=== PATIENT | male | born 1955 | race Caucasian/White ===

== ENCOUNTER 2023-04-21 13:22 | Inpatient (IN) | payer MEDICARE, SELFPAY ==
[2023-04-21] VITALS (51 sets, daily range): BP systolic 52–166; BP diastolic 44–123; PULSE 40; BMI 23.3; BMI 23.7
[2023-04-21] MEDS: AMIDATE 20 MG IV (10:51)
[2023-04-21] MEDS: [UNRECOGNIZED DRUG - OTHER] 100 MG IV ×2 (10:51→10:57)
[2023-04-21] MEDS: SUBLIMAZE 75 MCG IV (10:58)
[2023-04-21 11:02] LABS: % Basophils 0.4 % (0-2); % Eosinophils 0.1 % (0-6); % Lymphocytes 3.4 % (20.5-51.1); % Monocytes 5.7 % (1.7-9.3); % Neutrophils 87.4 % (42.2-75.2); Absolute Basophils 0.1 10^3/uL (0-0.2); Absolute Immature Granulocytes 0.7 10^3/uL (0-0.05); Absolute Lymphocytes 0.9 10^3/uL (1.2-3.4); Absolute Monocytes 1.4 10^3/uL (0.1-0.6); Absolute Neutrophils 21.7 10^3/uL (1.4-6.5); Hematocrit 41.1 % (39.0-52.0); Hemoglobin 14.5 g/dL (13.0-18.0); Mean Corp Hgb Conc. 35.3 g/dL (33.0-37.0); Mean Corpuscular Hgb 31.7 pg (27.0-31.0); Mean Corpuscular Volume 89.9 fL (80.0-94.0); Mean Platelet Volume 11.9 fL (7.4-10.4); Nucleated Red Blood Cells % 0.9 % (-); Platelet Count 226 10^3/uL (130-400); Red Blood Cell Count 4.57 10^6/uL (4.70-6.10); Red Cell Dist. Width 13.9 % (11.5-14.5); White Blood Cell Count 24.8 10^3/uL (4.8-10.8)
--- NOTE | 2023-04-21 11:05 | ED.GENMED ---
Addendum entered and electronically signed by Mahamed Strong DO 04/22/23 08:19:
correction
patient did not come in with good
Original Note:
History of Present Illness
General
Chief Complaint: CODE
Source: patient and ambulance crew
Exam Limitations: clinical condition
Time Seen by Provider: 04/21/23 11:02
Nursing documentation reviewed up to this point in time: agreed with
History of Present Illness
History of Present Illness:
68 female prior stroke EMS was called for choking spell was frothing of some bloody material, went into respiratory arrest asystole/PEA given 1 epi intubated brought to the ER here he is gagging expelled the ET tube, reintubated, by myself he has a
Good with cloudy urine had a prior stroke looks plegic on the left
More history from spouse he had a prior stroke has been sick for a few days with an urgent care with signs sinus infection given antibiotic the does not know the name of saw PCP recently started on Biaxin which typically works for her he listen
to hockey game last night which is not uncommon for him today she found him coughing and expectorating up blood placed on the side 911 was called
Past History
Past History
ED Past Medical History: CVA and HTN
ED Past Surgical History: Other
Social History
Tobacco: Non-smoker
Alcohol: Occasional
Drug: None
Personal:
Living: with family
Employment: Other
Family History
Family History: Other
Review of Systems
Review of Systems
Unable to obtain full review of systems at this time due to: intubated
Other source history: ambulance crew
All Other Systems: Not applicable
Phy Exam
Physical Exam
Physical Exam:
Physical Exam
General: 68 male intubated expectorating vomitus with blood through the nose and oropharynx
Neck: Thick bloody secretions
Heart: s1/s2 regular rate and rhythm, no murmur. equal radial pulses.
Lungs: Breath sounds with positive pressure
Abdomen: Nontender
Neuro: Overbreathing ventilator left-sided please
Skin: no rash
Psychiatric: Unable to assess
Extremities: No edema
Course
Orders/Labs/Results
Orders:
Orders
04/21/23 10:41
Electrocardiogram (*1) Urgent
Reason for Study: Other
Other Reason for Exam: Respiratory Distress
Cardiac Monitoring- Treatment ONCE
EKG- Treatment ONCE
04/21/23 10:42
CR Chest Portable - 1 View Urgent
Comment:
Reason For Exam: respiratory distress
Reason Study Needs to be Portable: Patient Unstable
04/21/23 10:45
Etomidate [Amidate] 20 mg IV ONCE ONE
04/21/23 10:46
Succinylcholine Chloride [Succinylcholine] 100 mg IV ONCE
04/21/23 10:49
Complete Blood Count/With Diff Urgent
Comprehensive Metabolic Panel Urgent
Lactic Acid Q4H
Comment: WITH 1ST SET OF BLOOD CULTURES,CANCEL 2ND LACTIC ACID IF FIRST <2
NT-proBNP Urgent
Prothrombin Time Urgent
Troponin I Urgent
Blood Culture Q30M
JOSHUA Source: Blood/Venous
Specimen Description:
Comment: FROM SEPARATE SITES
04/21/23 10:50
Succinylcholine Chloride [Succinylcholine] 100 mg IV ONCE
04/21/23 10:52
Urinalysis Reflex To Culture Urgent
Date Specimen was Collected: 04/21/23
Time Specimen was Collected: 10:51
Urine Drug Abuse Screen Urgent
Date Specimen was Collected: 04/21/23
Time Specimen was Collected: 10:51
Urine Microscopic Reflex Cult Urgent
Blood Culture Q30M
JOSHUA Source: Blood/Venous
Specimen Description:
Comment: FROM SEPARATE SITES
Urine Culture Urgent
JOSHUA Source: U
Specimen Description:
Date Specimen was Collected: 04/21/23
Time Specimen was Collected: 10:51
04/21/23 10:55
Fentanyl Citrate/Pf [Sublimaze] 75 mcg IV ONCE ONE
04/21/23 11:02
CT Head W/o Iv Contrast Urgent
Comment:
Reason For Exam: coma
04/21/23 11:14
Good Placement- Treatment ONCE
Reason for insertion: I&O's Critical Care
Piperacillin/Tazo 3.375 Gram [Zosyn] 3.375 gram in 50 ml IV NOW
Piperacillin/Tazo 3.375 Gram [Zosyn] 3.375 gram in 50 ml IV NOW
04/21/23 11:18
ABG [Arterial Blood Gas] Urgent
%Oxygen/Room Air: 100
COVID-19 Antigen Urgent
Source: Nasal Swab
Influenza A+B Rapid Molecular Urgent
JOSHUA Source: Nasal Swab
Specimen Description:
04/21/23 11:21
0.9% Sodium Chloride 1000 ml [Nss] 2,000 ml IV BOLUS
NORepinephrine 4 MG/250 ML [Levophed] 4 mg in 250 ml IV NOW
Initial dose in mcg/min, then titrate:: 2
Titrate to keep:: SBP > 90 mmHg
Titrate by mcg/min:: 1-2 mcg/min
Frequency of titrations (minutes):: 5
Maximum dose in ICU in mcg/min:: 30
Maximum dose in IMU in mcg/min:: 8
Maximum dose in IVU in mcg/min:: 4
Begin to taper infusion when:: Remained at goal for 4hrs
Taper by mcg/min:: 1-2 mcg/min
Frequency of taper (minutes) if patient maintains goal:: 30
Taper to off?: Yes
If infusion off & no longer maintaining goal:: Contact Provider
04/21/23 11:[address] Non Medication Order As Directed
Physician Order: NGT
Above order entered?: Yes
04/21/23 11:28
Atropine Sulfate [Atropine 0.1 mg/ml Syringe] 1 mg IV NOW STA
04/21/23 12:00
Fentanyl Citrate/Pf [Sublimaze] 50 mcg IV [id number] PRN
Propofol 1,000,000 Mcg/100 ml [Diprivan] 1,000,000 mcg in 100 ml IV PER PROTOCOL
04/21/23 14:45
Lactic Acid Q4H
Comment: WITH 1ST SET OF BLOOD CULTURES,CANCEL 2ND LACTIC ACID IF FIRST <2
Abnormal Lab Results
04/21/23 04/21/23
10:49 10:52
WBC 24.8 H 10^3/uL
(4.8-10.8)
RBC 4.57 L 10^6/uL
(4.70-6.10)
MCH 31.7 H pg
(27.0-31.0)
MPV 11.9 H fL
(7.4-10.4)
Abs Immat Gran (auto) 0.7 H 10^3/uL
(0-0.05)
Absolute Neuts (auto) 21.7 H 10^3/uL
(1.4-6.5)
Absolute Lymphs (auto) 0.9 L 10^3/uL
(1.2-3.4)
Absolute Monos (auto) 1.4 H 10^3/uL
(0.1-0.6)
Immature Gran % 3.0 H %
(0-0.5)
Neutrophils % 87.4 H %
(42.2-75.2)
Lymphocytes % 3.4 L %
(20.5-51.1)
Sodium 123 L mmol/L
(135-145)
Chloride 90 L mmol/L
(98-107)
BUN 26 H mg/dl
(9-20)
Lactic Acid 2.4 H mmol/L
(0.7-2.0)
AST 99 H U/L
(17-59)
ALT 67 H U/L
(0-50)
Alkaline Phosphatase 188 H U/L
(38-126)
Ur Occult Blood Reflex Trace A
(Negative)
Urine Nitrite (Reflex) Positive A
(Negative)
Leukocyte Esterase Rfl 2+ A
(Negative)
Urine Albumin (Reflex) 1+ A
(Neg - Trace)
04/21/23 10:49
04/21/23 10:49
Vital Signs
Initial and Last Documented VS:
Initial Vital Signs
Pulse Resp BP Pulse Ox
78 20 163/117 93
04/21/23 10:40 04/21/23 10:40 04/21/23 10:40 04/21/23 10:40
Last Documented Vital Signs
Pulse Resp BP Pulse Ox
75 20 114/85 100
04/21/23 11:27 04/21/23 11:27 04/21/23 11:27 04/21/23 11:27
Procedures
Intubations
Procedure completed by: hector
Method of Intubation: glidescope
Tube size (cm): 7.5
Placement confirmed by: CXR
Breath sounds after intubation: equal
Intubation complications: no complications
Additional information:
Large secretions
MDM/Problems Addressed
Differential Diagnosis Includes:
Aspiration choking respiratory arrest cardiac event hypoxia intracerebral hemorrhage
MDM/Problems Addressed:
Respiratory arrest
Chronic conditions affecting care:
Stroke
Chronic conditions affecting care: Neurological disorder
Acute Exacerbation and/or Progression of Chronic Illness: Neurological disorder
*Radiology
Radiology exam reviewed: preliminary read by ED provider
*Pulse Oximetry
Patient hypoxic: yes
*EKG
Interpretation: abnormal
Comparison EKG: no comparison EKG present
Heart Rate: 78
*Critical Care Note
Total Time (30-74mins, 75-104mins- exclusive of procedures): 41
Update Note
Update Note:
10:30 AM heart rate in the 40s blood pressure in the 60s started on Levophed given atropine ET tube adjusted NG tube will be placed based upon text discussion with radiology fluid sepsis doses will be administered antibiotics have been administered
ED Attending Note
-
Portions of this chart may have been created with voice recognition software.� Occasional wrong word or��sound alike� substitutions may have occurred due to the inherent limitations of voice recognition software.
Discharge Plan
Departure
Patient Disposition: Admit
Date of Disposition: 04/21/23
Time of Disposition: 11:36
Admit to: ICU
Presentation/result/management discussed w/ accepting MD/DO: Hospitalist
Patient with high blood pressure during this ER visit?: No
Condition: Serious
Covid-19: Not Applicable
Discharge Problem:
Sepsis, Respiratory failure, Acute UTI, CVA, old, hemiparesis
Prescriptions:
No Action
amlodipine [Norvasc] 5 MG tablet
5 mg PO DAILY
clopidogrel 75 MG tablet
75 mg PO DAILY 18 Days Qty: 18 0RF
aspirin 81 MG tablet,chewable
81 mg PO DAILY 30 Days Qty: 30 0RF
clarithromycin 500 mg Tablet
500 mg PO BID
Patient Comments:
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
oxybutynin chloride 5 mg Tablet
5 mg PO BID
baclofen 5 mg Tablet
5 mg PO BID
losartan 50 mg tablet
100 mg PO DAILY
Referrals:
UNKNOWN - PT NOT,INTERVIEWE [Family Provider] -
Interventions
Interventions:
*Risk Screen - Suicide Last Done: 04/21/23 10:40
*General Assessment Last Done: 04/21/23 10:40
*Neglect/Abuse Screening Last Done: 04/21/23 10:40
ED- Fall Risk Assessment Last Done: 04/21/23 10:40
*ED COVID-19 Vaccine History Last Done: 04/21/23 10:40
ED- Cardiac Assessment Last Done: 04/21/23 10:40
ED- Pulmonary Assessment Last Done: 04/21/23 10:40
[2023-04-21 11:06] LABS: Urine Albumin 1+ (Neg - Trace); Urine Bilirubin Negative (Negative); Urine Character Very Cloudy (Clear); Urine Color Yellow; Urine Glucose Negative (Negative); Urine Ketone Negative (Negative); Urine Leukocyte 2+ (Negative); Urine Nitrite Positive (Negative); Urine Occult Blood Trace (Negative); Urine Specific Gravity 1.025 (<1.030); Urine Urobilinogen Negative (Neg - 1+)
[2023-04-21 11:12] LABS: INR 0.91; PT 12.4 Sec (11.4-14.6)
[2023-04-21 11:14] LABS: Lactic Acid 2.4 mmol/L (0.7-2.0)
[2023-04-21 11:15] LABS: ALT (SGPT) 67 U/L (0-50); AST (SGOT) 99 U/L (17-59); Albumin 4.2 g/dl (3.5-5.0); Alkaline Phosphatase 188 U/L (38-126); Blood Urea Nitrogen 26 mg/dl (9-20); Calcium 9.4 mg/dl (8.4-10.2); Carbon Dioxide 24 mmol/L (22-30); Chloride 90 mmol/L (98-107); Estimated Creatinine Clearance 76 ml/min; Glucose 89 mg/dl (70-99); Sodium 123 mmol/L (135-145); Total Bilirubin 1.1 mg/dl (0.2-1.3); Total Protein 7.6 g/dl (6.3-8.2); eGFR > 60.00
[2023-04-21] MEDS: ZOSYN 50 IV ×2 (11:22→18:07)
[2023-04-21] MEDS: LEVOPHED 250 IV (11:22)
[2023-04-21] MEDS: NSS 2000 IV (11:23)
[2023-04-21 11:25] LABS: NT-proBNP 376 pg/ml; Troponin I < 0.012 ng/ml
[2023-04-21] MEDS: ATROPINE 0.1 MG/ML SYRINGE 1 MG IV (11:28)
[2023-04-21] MEDS: SUBLIMAZE 50 MCG IV ×2 (11:36→23:23)
[2023-04-21 11:55] LABS: Amphetamines Negative (Negative); Barbiturates Negative (Negative); Benzodiazepines Negative (Negative); Buprenorphine Negative (Negative); Cocaine Negative (Negative); Methadone Negative (Negative); Methamphetamines Negative (Negative)
[2023-04-21 11:55] LABS: COVID-19 Antigen Negative (Negative)
[2023-04-21 11:56] LABS: Marijuana Negative (Negative); Opiates Negative (Negative); Phencyclidine Negative (Negative); Tricyclic Antidepressants Negative (Negative)
[2023-04-21 11:58] LABS: B.E. -3.7 mmol/L; HCO3 20.6 mmol/L (21-28); O2 Saturation % 99.8 % (94-98); PCO2 34 mmHg (35-48); PO2 159 mmHg (83-108); pH 7.39 (7.35-7.45)
[2023-04-21 12:20] LABS: Urine Amorphous Seen
[2023-04-21 12:22] LABS: Urine Red Blood Cell 0-2 /HPF (0-2); Urine White Cell 21-25 /HPF (0-5)
[2023-04-21 12:24] LABS: Urine Bacteria Moderate (Negative); Urine Hyaline Cast 0-2 /LPF (0-2)
--- NOTE | 2023-04-21 13:30 | HPS.HSE ---
Family Physician
-
Family Physician: INTERVIEWE UNKNOWN - PT NOT
Chief Complaint
-
Gagging on bloody oral secretions
History of Present Illness
Patient currently intubated and sedated. History is per who is at bedside in the ER.
Since new year long weekend patient has been having trouble with sinus infection. Went to urgent care center on April 12 and had COVID testing which was negative and also a chest x-ray which did not show pneumonia apparently. Was prescribed
antibiotics to be taken twice a day. He did tell Tuesday and stopped it. There was a telehealth by PCP on April 19 and was prescribed catheter mycins. noticed he is may be getting better. He had some confusion that was clearing up.
Last night he was watching flies came which was) and that he had good appetite.
This morning at 9:30 AM when the patient's went to check on him for breakfast awake and was looking at her with a squinted eyes. He was gagging and coughing up blood so she laid him on his side and called 911.
According to the ER physician apparently the EMS found him in respiratory arrest, asystole/PEA code and was given 1 round of epinephrine and got intubated. Apparently difficult intubation as he was gagging on the ET tube and got reintubated by ER
physician. He got a cloudy urine when a catheter was placed.
He had a stroke in 2021 and ever since has been weaker on the left side with some improvement. His left upper extremity went into contracture. No history of seizures.
Medical History
Past Medical History
Past Medical History: Reports CVA, HTN, Hypercholesterolemia and Other (lung nodule)
Past Surgical History: Reports None
Social History
Tobacco: Non-smoker
Alcohol: Occasional
Drug: None
Personal:
Living: With Family
Family History
Family History: Not pertinent
Allergies / Home Medications
Allergies reflects when Allergies were last updated in [employer].
Home Medications with original date entered in [employer]
Allergy/Medication List:
Allergies
Allergy/AdvReac Type Severity Reaction Status Date / Time
No Known Allergies Allergy Verified 04/21/23 10:41
Home Medications
amlodipine 5 mg tablet (Norvasc) 5 mg PO DAILY Blood pressure 09/04/21
aspirin 81 mg chewable tablet 81 mg PO DAILY 30 days #30 tabs 09/06/21
clopidogrel 75 mg tablet 75 mg PO DAILY 18 days #18 tabs 09/06/21
baclofen 5 mg tablet 5 mg PO BID 04/21/23
clarithromycin 500 mg tablet 500 mg PO BID 04/21/23
losartan 50 mg tablet 100 mg PO DAILY 04/21/23
oxybutynin chloride 5 mg tablet 5 mg PO BID 04/21/23
Review of Systems
-
Unable to obtain full review of systems at this time due to: Patient Intubation
Physical Exam
Vital Signs
Vital Signs
Temp Pulse Resp BP Pulse Ox
92.8 F L 58 20 146/87 100
04/21/23 13:13 04/21/23 13:00 04/21/23 13:00 04/21/23 13:00 04/21/23 13:00
Physical Exam
General: No Apparent Distress
HEENT: Other (bloody BL nasal secretions ;Left nare with NG tube; Oral trach tube with bleeding in mouth ; left ventral lateral part of tongue with few superficial lacerations ? tube trauma ;doubt tongue bit as no corresponding bite on dorsal part
of tongue)
Respiratory: Clear (anteriorly)
Cardiac: S1/S2 and Regular Rhythm
GI: Soft
Neuro: AO x 3
Psych: Calm
Laboratory Results
-
04/21/23 10:49
04/21/23 10:49
Laboratory Results
PT 12.4 Sec (11.4-14.6) 04/21/23 10:49
INR 0.91 04/21/23 10:49
pH 7.39 (7.35-7.45) 04/21/23 11:49
pCO2 34 mmHg (35-48) L 04/21/23 11:49
pO2 159 mmHg (83-108) H 04/21/23 11:49
HCO3 20.6 mmol/L (21-28) L 04/21/23 11:49
Lactic Acid 2.4 mmol/L (0.7-2.0) H 04/21/23 10:49
Total Bilirubin 1.1 mg/dl (0.2-1.3) 04/21/23 10:49
AST 99 U/L (17-59) H 04/21/23 10:49
ALT 67 U/L (0-50) H 04/21/23 10:49
Alkaline Phosphatase 188 U/L (38-126) H 04/21/23 10:49
Troponin I < 0.012 ng/ml 04/21/23 10:49
Data Reviewed
-
Diagnostic Radiology: Report Reviewed by me (cxr)
Lab Data: Labs Reviewed by me
Impression/Plan
-
Bloody oral secretion causing gagging until respiratory arrest requiring intubation-unclear if it is hemoptysis or hematemesis. Currently H&H stable. Patient currently has some laceration on the left side of the tongue unclear if it is acute
trauma and also has nasal bloody secretions. denies any falls. No obvious external trauma evident. He is currently on antibiotics for sinusitis. Check a CT of the facial bones to rule out any trauma or any other pathology. Consult GI for
possible hematemesis. Follow H&H closely.
Sepsis by criteria-elevated white count and hypothermia noted. Unclear if it related to oropharyngeal infection or a UTI. He has a cloudy urine. Is known to have recurrent UTIs. Cover broadly with antibiotics pending culture data.
Out of hospital PEA:-Patient apparently was in respiratory arrest and transient PEA code needing 1 cycle of epinephrine. Follow on telemetry.
Acute respiratory failure secondary to oral secretion issues-currently intubated for airway protection and secretion management. Continue with vent support per pulmonary.
History of CVA with residual left-sided weakness-patient on dual antiplatelet agents. Hold Plavix. Continue rectal aspirin.
Hypertension-hold home medication and follow blood pressure which has been on the lower side.
Full code
--- NOTE | 2023-04-21 14:30 | PTCARENOTE ---
Received patient to room 3366. Patient escorted by ED RN and respiratory. Patient is intubated, sedated on propofol. Initial settings AC 20/500/5/40%. It is a number 7 ETT on left side of mouth at 19cm. Bloody secretions coming from mouth and
ETT. safely moved patient into bed, CHG bath and telemetry leads attached. Patient is not responding to painful stimuli. Did a sternal rub. Right pupil is a 4 and sluggish. Left pupil is a 3 and sluggish. Patient appears to be posturing,
right arm is extended out, flexed at wrists and turning palm outwards. left arm has cast on, bilateral feet are extended out as well. Patient does have corneal reflexes intact. notified Dr. Dwyer, physician to assess patient at bedside. Patient
is sinus rhythm on monitor, no edema noted, bilateral scds applied to lower extremities. Patient initally came up on levophed for MAP>65. Maps have been above 100, titrated levophed off as charted in JUN. Patient has left nare NG tube, connected
tube to low intermittent suction. Bloody and coffee ground emesis coming out of tube. (Patient has had a sinus infection per and had to be reintubated in ED). Temp sensing good in place, buster hugger is on. Patient NPO. Petechiae noted on
back, trunk, scattered areas on arms and chest. Some scattered bruises, otherwise, skin is intact.
[2023-04-21 14:37] LABS: Hematocrit 32.1 % (39.0-52.0); Hemoglobin 11.9 g/dL (13.0-18.0)
[2023-04-21 14:59] LABS: Lactic Acid 1.6 mmol/L (0.7-2.0)
[2023-04-21] MEDS: VANCOCIN 300 ML IV (15:01)
[2023-04-21] MEDS: VANCOCIN 300 MG IV (15:01)
--- NOTE | 2023-04-21 15:09 | CON.INTV ---
Consultation
Consultation Request
Date/Time Consultation Requested: 04-21-23
Date/Time Consultation Performed: 04-21-23
Requesting Provider: Hospitalist
Performing Provider: Dr Dwyer
Reason for Consultation: cardiac arrest
Medical History
-
Chief Complaint: cardiac arrest
History of Present Illness:
Mr Raúl Reddy is a 68/M adm 04-21. Found coughing bloody material by at 9:30 am, called 911, found in respiratory arrest, asystole/PEA, ALCS started, orally intubated, epinephrine x1.
Reportedly recent sinus infection seen at , started atb bid (apparently clarithromycin) with improvement.
ETT dislodged at ER, reintubated
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
CVA, on plavix
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
COVID illness Mar 2022, s/p paxlovid
LUE cast
HTN
HLD
Lung lung nodule (RLL sup segment, on CT 09-05-21)
Non-smoker
Past Medical History
Past Medical History: Other (see A&P for PMH/PSH)
Social History
Tobacco: Non-smoker
Alcohol: Occasional
Drug: None
Personal:
Living: With Family
Family History
Family History: Unable to Obtain
Allergies / Home Medications
Allergies
Allergy/AdvReac Type Severity Reaction Status Date / Time
No Known Allergies Allergy Verified 04/21/23 10:41
Home Medications
Medication Instructions Recorded Confirmed Last Taken Type
amlodipine 5 mg tablet (Norvasc) 5 mg PO DAILY Blood pressure 09/04/21 03/29/22 03/24/22 History
aspirin 81 mg chewable tablet 81 mg PO DAILY 30 days #30 tabs 09/06/21 03/29/22 03/24/22 Rx
clopidogrel 75 mg tablet 75 mg PO DAILY 18 days #18 tabs 09/06/21 03/29/22 03/24/22 Rx
baclofen 5 mg tablet 5 mg PO BID 04/21/23 Unknown History
clarithromycin 500 mg tablet 500 mg PO BID 04/21/23 Unknown History
losartan 50 mg tablet 100 mg PO DAILY 04/21/23 Unknown History
oxybutynin chloride 5 mg tablet 5 mg PO BID 04/21/23 Unknown History
Review of Systems
-
Unable to Obtain full review of systems at this time due to: Patient Intubation
Vitals / Labs / Diagnostic Testing
Vital Signs
Temp Pulse Resp BP Pulse Ox
92.8 F L 58 20 146/87 100
04/21/23 13:13 04/21/23 13:00 04/21/23 13:00 04/21/23 13:00 04/21/23 14:36
Lab Data
04/21/23 10:49
Laboratory Results
04/21/23 04/21/23 04/21/23
10:49 11:49 14:31
PT 12.4
INR 0.91
APTT 37.0 H
pH 7.39
pCO2 34 L
pO2 159 H
HCO3 20.6 L
O2 Delivery Level
Microbiology
04/21/23 11:18 Nasal Swab Influenza Types A & B (ARACELIS) - Final
Negative for Influenza A & B, NAAT
Negative results must be combined with clinical observations
and patient history.
Nucleic Acid Amplification test (NAAT)performed on the
[employer] platform.
Diagnostic Testing:
Physical Exam
-
HEENT: Normocephalic, Moist Mucous Membranes and Other
Cardiovascular: Regular Rhythm and Peripheral Edema (n)
Respiratory: Clear and Other (RICHARD#7)
GI: Soft, Non Distended and Other (NGT)
Neurology: Other (sedated)
Skin: Dry and Other (petechiae)
Exam:
L forearm cast
Assessment
-
Assessment:
Mr Raúl Reddy is a 68/M adm 04-21. Found coughing bloody material by at 9:30 am, called 911, found in respiratory arrest, asystole/PEA, ALCS started, orally intubated, epinephrine x1. Reportedly recent sinus infection seen at , started
atb bid (apparently clarithromycin) with improvement. ETT dislodged at ER, reintubated
Impression:
Cardiac arrest at home, unknown duration, attended by EMS upon arrival
Asystole/PEA
Intubated as scene
ETT expelled at ER, reintubated
FRANCISCO infiltrate
Suspected epistaxis based on facial bones CT on adm vs hemoptysis
Hypothermia 34.1 C on adm
Recent sinus infection s/p atb
Acute on chronic leukocytosis
Hyperoxia on ABG (apparently on fiO2 1.0)
Likely acute on chronic hyponatremia
Resolved mild lactic acidosis
Mild transaminitis
Normal troponin/BNP
Abnormal UA, suspected UTI
UDS negative
COVID/flu negative
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
CVA, on plavix
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
COVID illness Mar 2022, s/p paxlovid
LUE cast
HTN
HLD
Lung lung nodule (RLL sup segment, on CT 09-05-21)
Non-smoker
Plan:
Cardiac arrest
Unclear etiology
Limited information at EMR, no EMS record in chart
Bloody secretions but no evidence of pulm edema on CXR
Recent sinus infection, received clarithromycin (no QTc prolongation at ER EKG)
Intubated at scene
ETT dislodged at ER, reintubated
Continue ACV
20-500-5-0.4 (99%)
Sedation, analgesia
Daily sedation holiday for MV and MS evaluation
Noted posturing on physical exam
Neurology consultation warranted
Hypothermia protocol will be started, coordinating cooling device deployment
Continue empiric atbs: vanco/zosyn
Follow cxs:
Resp secs, blood, U
Pressor, NE to keep MAP>=65
PICC
Prognosis unfortunately guarded
Full code
Critical care time: 35 min
Diagnostic tests:
CXR 04-21-23 c/w 04-07-22: portable, rotated, L sided volume loss, suspected FRANCISCO infiltrate. Chronic R mid field 2.8 cm oval density (less dense than before)
Head CT 04-21-23
IMPRESSION:
There are no acute intracranial abnormalities.
4 mm lacunar infarct in the body of the caudate on the right
There is moderate diffuse cortical and cerebellar atrophy with moderate nonspecific white matter changes
Facial bones CT
IMPRESSION:
1. Post placement of nasogastric tube and endotracheal tube, expected appearance.
2. Partial opacification of ethmoid air cells and near complete opacification of the nasal cavity as above. Area of opacification with some increased attenuation suggesting possible blood products. Source of hemorrhage is indeterminate on this
examination.
3. No acute facial bone fractures.
4. 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
5. Abnormal asymmetric sphenoid bone on the left as detailed above with thinning and abnormal lucency. Differential considerations include sphenoid dysplasia and meningocele. Given sclerotic margins, metastatic disease is considered unlikely.
Could be further evaluated with follow-up MRI as warranted.
6. 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
TTE 04-07-22
CONCLUSIONS
Normal biventricular size and systolic function without regional wall motion
abnormality. Estimated LVEF 60-65%.
Mild concentric left ventricular hypertrophy.
Mild/moderate mitral regurgitation.
Mild tricuspid regurgitation. Normal PASP.
No prior study available for comparison.
[2023-04-21 15:10] LABS: Magnesium 2.2 mg/dl (1.6-2.3)
[2023-04-21] MEDS: ASPIRIN 300 MG RECTAL (15:10)
--- NOTE | 2023-04-21 15:49 | CON.MD ---
Consultation - Medical
-
Assessment
-hyponatremia
-VDRF
-s/p PEA arrest
-HTN, recent hypotension
-lung nodule RLL
-elevated LFTs
-sinus infection/UTI
Plan
-critically ill in ICU on vent
-check Urine studies
-Abx per primary team
-no IVF until urine returns
-keep MAP > 65
-will need neuro eval given irregular pupils
-d/w family
-critical care time 31 minutes
-[id number]
[2023-04-21 16:38] LABS: Osmolality Urine 486 mOsm/kg (300-900)
--- NOTE | 2023-04-21 16:40 | PHA.VAN.IN ---
Assessment
- Assessment
Renal Function: Appears similar to baseline
Maximum Temperature: going through cooling protocol
Concomitant Antimicrobials: piperacillin-tazobactam
Plan
- Plan
Initial / Loading Dose: 1500mg 04/21 15:01 (24 mg/kg)
Maintenance Regimen: dose by level 1000mg ordered 04/22 629
Monitoring: random 04/22 599
MRSA Screen: Ordered per protocol (PCR)
Pharmacokinetics Vancomycin I
- -
Patient Age: 68
Patient Sex: Male
Vancomycin Day #: 1
Indication: Pulmonary/Respiratory
Requesting Provider: Dr Dwyer
Pertinent Antimicrobial Allergies:
no known allergies
Height / Weight:
Height 5 ft 4 in
Actual Weight 62.6 kg
Pertinent Past Medical History: cooling protocol
- Vital Signs / Lab Results
Temp Pulse Resp BP Pulse Ox
96.2 F L 58 20 146/87 99
04/21/23 16:10 04/21/23 13:00 04/21/23 13:00 04/21/23 13:00 04/21/23 15:53
Lab Results - Hematology
04/21/23
10:49
WBC 24.8 H
Lab Results - Chemistry
04/21/23
10:49
BUN 26 H
Creatinine 0.8
Estimated Creat Clear 76
Albumin 4.2
04/21/23 04/21/23
10:49 14:31
Lactic Acid 2.4 H 1.6
Lab Results - Urine
04/21/23
10:52
Urine Nitrite (Reflex) Positive A
Leukocyte Esterase Rfl 2+ A
Urine WBC (Reflex) 21-25 A
Urine Bacteria (Reflex) Moderate A
Microbiology Results
04/21/23 11:18 Influenza Types A & B (ARACELIS) - Final
Nasal Swab Negative for Influenza A & B, NAAT
Negative results must be combined with clinical observations
and patient history.
Nucleic Acid Amplification test (NAAT)performed on the
[employer] platform.
[2023-04-21 16:45] LABS: Urine Sodium 95 mmol/L (30-90)
--- NOTE | 2023-04-21 17:05 | PTCARENOTE ---
TOF has 4:4 on 4 at 1705.
--- NOTE | 2023-04-21 17:15 | PTCARENOTE ---
Per report from ED. Patient had PEA/ arrest with EMS on route to hospital. Physician reviewed and assessed patient, TTM ordered and started as documented in worklist.
--- NOTE | 2023-04-21 17:57 | CON.CAR ---
Consultation
Consultation Request
Date/Time Consultation Requested: 04/21/2023 1715
Date/Time Consultation Performed: 04/21/2023 at 1715
Requesting Provider: Dr. Dwyer and Dr. Villatoro
Performing Provider: Dr. De La Cruz
Reason for Consultation: Out of hospital arrest
Medical History
-
History of Present Illness:
68-year-old male with history of CVA, hypertension, hypercholesterolemia who presented with what was reported to be a PEA arrest. Patient unable to provide history. History obtained in discussion with Dr. Dwyer and with nursing staff. Patient
reportedly was having coughing issues at home and was on the floor coughing and when EMS arrived reportedly had a PEA arrest with short interval of CPR administration of epinephrine and intubation. Patient brought to the ER and reportedly was
coughing and extubated. Difficult reintubation was reported. Patient now in ICU. Low-dose pressors, 2 mics of Levophed no arrhythmias reported. Currently in sinus rhythm.
Past medical history
Patient noted to have asymptomatic sinus bradycardia in the setting of COVID-19 in March 2022
Hypertension
Hypercholesterolemia
CVA
Social history non-smoker
Family history patient unable to provide
Allergies / Home Medications
Allergy/AdvReac Type Severity Reaction Status Date / Time
No Known Allergies Allergy Verified 04/21/23 10:41
Medication Instructions Recorded Confirmed Type
amlodipine 5 mg tablet (Norvasc) 5 mg PO DAILY Blood pressure 09/04/21 03/29/22 History
aspirin 81 mg chewable tablet 81 mg PO DAILY 30 days #30 tabs 09/06/21 03/29/22 Rx
clopidogrel 75 mg tablet 75 mg PO DAILY 18 days #18 tabs 09/06/21 03/29/22 Rx
baclofen 5 mg tablet 5 mg PO BID 04/21/23 History
clarithromycin 500 mg tablet 500 mg PO BID 04/21/23 History
losartan 50 mg tablet 100 mg PO DAILY 04/21/23 History
oxybutynin chloride 5 mg tablet 5 mg PO BID 04/21/23 History
Review of Systems
-
Unable to obtain full review of systems at this time due to: Patient Intubation
Physical Exam
Vital Signs
Temp Pulse Resp BP Pulse Ox
97.7 F 69 20 89/51 100
04/21/23 17:22 04/21/23 17:15 04/21/23 17:15 04/21/23 17:15 04/21/23 17:15
Lab Results
04/21/23 10:49
Troponin I < 0.012 ng/ml 04/21/23 10:49
Bav-Y-Uvqztqqhign Pept 376 pg/ml 04/21/23 10:49
Physical Exam
General: Other (Limited exam patient getting procedure billed. Patient in no distress patient is on propofol ET tube in place with blood around ET tube)
Psych: Other (Unable to assess. Patient on propofol)
Impression / Plan
-
.
Arrest. Suspected respiratory arrest reported PEA arrest that responded to epinephrine and intubation. Information obtained in discussion with Dr. Dwyer. ECG shows sinus rhythm.
-Continue supportive treatment
-Wean pressors as tolerated
-Echocardiogram-
.
VDRF.
-Reported difficult reintubation in ER.
-Management directed by pulmonary/critical care
-COVID-negative
-Left upper lobe infiltrate reported by pulmonary. Patient reportedly coughing prior to presentation. Antibiotics as directed by pulmonary
Anemia.
-Patient with prior history of anemia based on hemoglobin in March 2022 initial hemoglobin here 14.5 and now with drop of 11.9. Unclear if this is a true drop. Continue to follow trend of hemoglobin and monitor for evidence of bleeding.
[2023-04-21] MEDS: SUBLIMAZE 100 IV (18:22)
--- NOTE | 2023-04-21 18:32 | PTCARENOTE ---
6 second pause noted, Dr. Dwyer aware.
[2023-04-21] MEDS: PROTONIX IV 40 MG IV (18:38)
[2023-04-21] MEDS: NSS (PRESERVATIVE FREE) 10 ML IV (18:38)
[2023-04-21] MEDS: BUSPAR 30 MG TUBE (18:38)
[2023-04-21] MEDS: TYLENOL ORAL SOLUTION 650 MG TUBE (18:43)
--- NOTE | 2023-04-21 19:17 | W.PN.ANS.LIN ---
Anesthesia IV & A-Line Note
- IV/Arterial Line
Right Forearm Arrow 20 (06/12)
IV Line Comments: Multiple Attempts
Allens test completed pre-procedure: No
A-Line Comments: Sterile technique as per standard protocol, Seldinger technique used, Ultrasound guided insertion, Multiple attempts, Biopatch applied
A-line Insertion Start Time: 19:00
A-line Insertion Stop Time: 19:15
--- NOTE | 2023-04-21 19:40 | VATNOTE ---
right picc retracted 4cm per protocol for SVC placement by radiologist.
[2023-04-21 20:19] LABS: B.E. -2.5 mmol/L; HCO3 18.8 mmol/L (21-28); O2 Saturation % 99.4 % (94-98); PCO2 23 mmHg (35-48); PO2 136 mmHg (83-108); pH 7.52 (7.35-7.45)
[2023-04-21] MEDS: DOPamine 400 MG 250 IV (20:26)
[2023-04-21] MEDS: NSS 1000 IV (20:27)
[2023-04-21] MEDS: DIPRIVAN 100 IV (20:28)
--- NOTE | 2023-04-21 20:30 | PTCARENOTE ---
prop and scenery maker, pt intubated, unresponsive, + decerebrate posturing. R pupil 4S, L pupil 3S. very weak minimal cough with inline suctioning/+gag, no corneals. BP labile with stimulation- elevated with care. goal cooling temp reached at 1921. no
shivering noted but sometimes dyssynchronous with vent- propofol and fentanyl per work list. HR continues to ray down into low 30s at times, KFlahertyNP aware, dopamine gtt started with HR & MAP goals per order. R PICC adjusted by IV team RN, ok
to use per her and CHIEF NURSING EXECUTIVE. R radial shabbir intact- inserted by anesthesiologist at 1900. ETT #7/19, AC 20/500/40/5, Sat 100%. bloody secretions from nose and mouth, nose appears to have large clot. NGT with coffee gr emesis to LIWS. Mendez cath with no UO
at this time- 1L NSS bolus infusing. TTM continues.
[2023-04-21 20:32] LABS: INR 1.03; PT 13.7 Sec (11.4-14.6)
[2023-04-21 20:33] LABS: APTT 41.4 Sec (23.4-35.0)
[2023-04-21 20:34] LABS: Lactic Acid 1.3 mmol/L (0.7-2.0)
[2023-04-21 20:36] LABS: Hematocrit 30.3 % (39.0-52.0); Hemoglobin 11.4 g/dL (13.0-18.0)
[2023-04-21 20:41] LABS: Triglycerides 105 mg/dl (10-149)
[2023-04-21 20:48] LABS: ALT (SGPT) 46 U/L (0-50); AST (SGOT) 72 U/L (17-59); Albumin 2.8 g/dl (3.5-5.0); Alkaline Phosphatase 140 U/L (38-126); Blood Urea Nitrogen 22 mg/dl (9-20); Calcium 8.1 mg/dl (8.4-10.2); Carbon Dioxide 18 mmol/L (22-30); Chloride 97 mmol/L (98-107); Creatine Phosphokinase 814 U/L (55-170); Estimated Creatinine Clearance 76 ml/min; Glucose 91 mg/dl (70-99); Magnesium 1.9 mg/dl (1.6-2.3); Potassium 4.4 mmol/L (3.5-5.1); Sodium 121 mmol/L (135-145); Total Bilirubin 1.3 mg/dl (0.2-1.3); Total CK 814 U/L (55-170); Total Protein 5.4 g/dl (6.3-8.2); eGFR > 60.00
[2023-04-21 21:11] LABS: CKMB 13.5 ng/ml (0.0-2.4)
[2023-04-21] MEDS: VERSED 2 MG IV (21:36)
[2023-04-21] MEDS: REFRESH CELLUVISC GEL 1 DROPS OPHTH (21:39)
--- NOTE | 2023-04-21 22:45 | CON.GI ---
Consultation
-
Date/Time Consultation Requested: 04/21/23 at 3:30
Date/Time Consultation Performed: 04/21/23 at 4:30
Requesting Provider: Irving
Performing Provider: Waleska
Reason for Consultation: oral bleeding
Medical History
Chief Complaint / HPI
Chief Complaint: ?hematemesis
History of Present Illness:
Pt is a 68 y/o man with a hx of cva, htn who had recent sinus infection, found to have a PEA code at home. During intubation had some trauma to mouth and some bloody secretions noted in mouth. No Gi history found in chart. No mention of prior GI
symptoms
Past Medical History
Past Medical History: Other (htn, cva, sinus infection)
Past Surgical History: Other (unknown)
Social History
Tobacco: Other (unknown)
Personal:
Family History
Family History: Unable to Obtain
Allergies / Home Medications
Allergy/AdvReac Type Severity Reaction Status Date / Time
No Known Allergies Allergy Verified 04/21/23 10:41
Medication Instructions Recorded
amlodipine 5 mg tablet (Norvasc) 5 mg PO DAILY Blood pressure 09/04/21
aspirin 81 mg chewable tablet 81 mg PO DAILY 30 days #30 tabs 09/06/21
clopidogrel 75 mg tablet 75 mg PO DAILY 18 days #18 tabs 09/06/21
baclofen 5 mg tablet 5 mg PO BID 04/21/23
clarithromycin 500 mg tablet 500 mg PO BID 04/21/23
losartan 50 mg tablet 100 mg PO DAILY 04/21/23
oxybutynin chloride 5 mg tablet 5 mg PO BID 04/21/23
Review of Systems
-
Unable to obtain full review of systems at this time due to: Patient Intubation
Vital Signs
Temp Pulse Resp BP Pulse Ox
91.2 F L 49 16 75/47 100
04/21/23 22:00 04/21/23 22:00 04/21/23 22:00 04/21/23 21:00 04/21/23 22:00
Physical Exam
Exam
General: Comfortable (intubated, sedated)
HEENT: Other (tongue with visible abrasion, oozing blood, NGT in)
GI: Soft and Non Tender
Results
WBC 24.8 10^3/uL (4.8-10.8) H 04/21/23 10:49
Hgb 11.4 g/dL (13.0-18.0) L 04/21/23 20:08
Hct 30.3 % (39.0-52.0) L 04/21/23 20:08
MCV 89.9 fL (80.0-94.0) 04/21/23 10:49
Plt Count 226 10^3/uL (130-400) 04/21/23 10:49
Absolute Neuts (auto) 21.7 10^3/uL (1.4-6.5) H 04/21/23 10:49
PT 13.7 Sec (11.4-14.6) 04/21/23 20:08
INR 1.03 04/21/23 20:08
APTT 41.4 Sec (23.4-35.0) H 04/21/23 20:08
Sodium 121 mmol/L (135-145) L 04/21/23 20:08
Potassium 4.4 mmol/L (3.5-5.1) 04/21/23 20:08
Chloride 97 mmol/L (98-107) L 04/21/23 20:08
Carbon Dioxide 18 mmol/L (22-30) L 04/21/23 20:08
BUN 22 mg/dl (9-20) H 04/21/23 20:08
Creatinine 0.8 mg/dL (0.7-1.3) 04/21/23 20:08
Calcium 8.1 mg/dl (8.4-10.2) L 04/21/23 20:08
Total Bilirubin 1.3 mg/dl (0.2-1.3) 04/21/23 20:08
AST 72 U/L (17-59) H 04/21/23 20:08
ALT 46 U/L (0-50) 04/21/23 20:08
Alkaline Phosphatase 140 U/L (38-126) H 04/21/23 20:08
Assessment / Plan
-
Pt is a 68 y/o man with a hx of a PEA arrest and apparent oral trauma/bloody oral secretions. No clear GI bleeding but likely swallowing some blood and may result in presumed hematemesis. For now;
1. monitor hgb which is stable
2. PPI
3. may need ENT to evaluate if oral bleeding continues
4. No obvious GI bleeding
will sign off but if overt GI bleeding occurs in the absence of swallowed blood please let us know
-
-
Thank you for consultation and allowing me to participate in the patient's care. Please call the last ironer GI physician during the after hours with any questions or concerns.
[2023-04-22] VITALS (12 sets, daily range): BP systolic 75–146; BP diastolic 47–72; PULSE 32–57; BMI 25.0
[2023-04-22 00:17] LABS: B.E. -2.9 mmol/L; HCO3 19.9 mmol/L (21-28); PCO2 28 mmHg (35-48); PO2 99 mmHg (83-108); pH 7.46 (7.35-7.45)
--- NOTE | 2023-04-22 00:30 | PTCARENOTE ---
pt continues to be bradycardic, BP fluctuates. blood around nose with large clot. no urine output for shift- pt for additional 500cc NSS bolus. abg to lab. no further changes in assessment.
[2023-04-22] MEDS: SODIUM BICARBONATE 1075 MEQ IV ×2 (00:39→13:01)
[2023-04-22] MEDS: TYLENOL ORAL SOLUTION 650 MG TUBE ×4 (00:41→17:06)
[2023-04-22] MEDS: BUSPAR 30 MG TUBE ×3 (00:42→16:44)
[2023-04-22] MEDS: NSS 500 IV (00:42)
[2023-04-22] MEDS: ZOSYN 50 IV ×2 (00:42→05:53)
[2023-04-22] MEDS: VERSED 2 MG IV (02:24)
[2023-04-22 02:40] LABS: Hematocrit 28.7 % (39.0-52.0); Hemoglobin 10.3 g/dL (13.0-18.0); Mean Corp Hgb Conc. 35.9 g/dL (33.0-37.0); Mean Corpuscular Hgb 31.8 pg (27.0-31.0); Mean Corpuscular Volume 88.6 fL (80.0-94.0); Mean Platelet Volume 12.1 fL (7.4-10.4); Platelet Count 175 10^3/uL (130-400); Red Blood Cell Count 3.24 10^6/uL (4.70-6.10); Red Cell Dist. Width 13.7 % (11.5-14.5); White Blood Cell Count 19.5 10^3/uL (4.8-10.8)
[2023-04-22 02:49] LABS: INR 1.16
[2023-04-22 02:50] LABS: APTT 45.3 Sec (23.4-35.0); Lactic Acid 0.7 mmol/L (0.7-2.0)
[2023-04-22] MEDS: SUBLIMAZE 50 MCG IV ×2 (02:52→06:00)
[2023-04-22 02:54] LABS: Vancomycin Random 14.1 ug/ml
[2023-04-22 02:58] LABS: ALT (SGPT) 41 U/L (0-50); AST (SGOT) 64 U/L (17-59); Albumin 2.4 g/dl (3.5-5.0); Alkaline Phosphatase 119 U/L (38-126); Blood Urea Nitrogen 17 mg/dl (9-20); Calcium 7.5 mg/dl (8.4-10.2); Carbon Dioxide 19 mmol/L (22-30); Chloride 102 mmol/L (98-107); Estimated Creatinine Clearance 87 ml/min; Glucose 91 mg/dl (70-99); Potassium 3.7 mmol/L (3.5-5.1); Sodium 125 mmol/L (135-145); Total Bilirubin 1.1 mg/dl (0.2-1.3); Total CK 689 U/L (55-170); Total Protein 4.8 g/dl (6.3-8.2); eGFR > 60.00
[2023-04-22 03:02] LABS: Troponin I < 0.012 ng/ml
[2023-04-22 03:21] LABS: Prealbumin (Transthyretin) 15.7 mg/dl (17.6-36.0)
[2023-04-22 03:24] LABS: CKMB 11.9 ng/ml (0.0-2.4)
[2023-04-22] MEDS: DIPRIVAN 100 IV ×2 (04:00→13:24)
--- NOTE | 2023-04-22 05:30 | PTCARENOTE ---
pt turned, pad found to have urine on it, good previously not putting out urine, ?sediment in tube, good cath manually flushed, immediately drained 325cc cloudy yellow urine, continues to drain, KFlahertyNP made aware. no further changes in
assessment.
[2023-04-22] MEDS: VANCOCIN 200 IV (06:26)
--- NOTE | 2023-04-22 07:32 | W.PN.INTV ---
Today's Communication / Plan
Recommendations
MV
Atbs
Pressor
Cooling
Assessment
-
Assessment:
Mr Raúl Reddy is a 68/M adm 04-21. Found coughing bloody material by at 9:30 am, called 911, found in respiratory arrest, asystole/PEA, ALCS started, orally intubated, epinephrine x1. Reportedly recent sinus infection seen at , started
atb bid (apparently clarithromycin) with improvement. ETT dislodged at ER, reintubated
Impression:
Cardiac arrest at home, unknown duration, attended by EMS upon arrival
Asystole/PEA
Intubated as scene
ETT expelled at ER, reintubated
Suspected epistaxis based on facial bones CT on adm vs hemoptysis
Hypothermia 34.1 C on adm
Recent sinus infection s/p atb
Acute on chronic leukocytosis
Hyperoxia on ABG (apparently on fiO2 1.0)
Likely acute on chronic hyponatremia
Resolved mild lactic acidosis
Mild transaminitis
Normal troponin/BNP
Abnormal UA, suspected UTI
UDS negative
COVID/flu negative
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
Ischemic CVA, R sided, L sided weakness/spasticity, on plavix/ASA
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
COVID illness Mar 2022, s/p paxlovid
LUE cast
HTN
HLD
Lung lung nodule (RLL sup segment, on CT 09-05-21)
Non-smoker
Plan:
Cardiac arrest
Unclear etiology
Limited information at EMR, no EMS record in chart
D/w over phone 04-21: patient presented cardiac arrest while in ambulance at home driveway: she was told at ER that arrest 'was brief'
Bloody secretions but no evidence of pulm edema on CXR
Recent sinus infection, received cefpodoxime for 6/10 d, followed by clarithromycin for 2-3 d DIGITAL MEASUREMENT ADVISOR (no QTc prolongation at ER EKG)
Intubated at scene
ETT dislodged at ER, reintubated
Continue ACV
20-500-5-0.4 (99%), adjusted to 16-450-5-0.4 (persistent resp alk)
Sedation, analgesia
Epistaxis
Suspected blood at ethmoid cells on CT
ENT evaluation 04-22: suspected L epistaxis which has ceased, rec observation
Noted posturing on physical exam on adm
Neurology consultation appreciated
Suspected anoxic brain injury
EEG, continuous
Head CT in 72 hrs since adm (per policy no MRI with A-line in place)
Hypothermia protocol started 04-21
Interim sinus bradycardia
Sinus pause of 5sec on 04-21
Suspected related to cooling protocol
Started dopamine gtt, added epinephrine
Continue empiric atbs: vanco/zosyn. Vanco d/c'ed (MRSA negative)
Adm CXR was suspicious for L apical infiltrate, however, CXR post PICC did not show infiltrate (just persistence of known RLL nodule)
Follow cxs:
Resp secs, blood, U
PICC placed at RUE 04-21
Metabolic acidosis and hyponatremia
Bicarb gtt by Renal contamination consultant
Prognosis unfortunately remains guarded
Full code
D/w Mrs Reddy on a daily basis. She will visit 04-22
Critical care time: 35 min
Diagnostic tests:
CXR 04-21-23 c/w 04-07-22: portable, rotated, L sided volume loss, suspected FRANCISCO infiltrate. Chronic R mid field 2.8 cm oval density (less dense than before)
Head CT 04-21-23
IMPRESSION:
There are no acute intracranial abnormalities.
4 mm lacunar infarct in the body of the caudate on the right
There is moderate diffuse cortical and cerebellar atrophy with moderate nonspecific white matter changes
Facial bones CT
IMPRESSION:
1. Post placement of nasogastric tube and endotracheal tube, expected appearance.
2. Partial opacification of ethmoid air cells and near complete opacification of the nasal cavity as above. Area of opacification with some increased attenuation suggesting possible blood products. Source of hemorrhage is indeterminate on this
examination.
3. No acute facial bone fractures.
4. 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
5. Abnormal asymmetric sphenoid bone on the left as detailed above with thinning and abnormal lucency. Differential considerations include sphenoid dysplasia and meningocele. Given sclerotic margins, metastatic disease is considered unlikely.
Could be further evaluated with follow-up MRI as warranted.
6. 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
TTE 04-07-22
CONCLUSIONS
Normal biventricular size and systolic function without regional wall motion
abnormality. Estimated LVEF 60-65%.
Mild concentric left ventricular hypertrophy.
Mild/moderate mitral regurgitation.
Mild tricuspid regurgitation. Normal PASP.
No prior study available for comparison.
Subjective Dataa
Subjective Data
Date of Service:
Date of Service: April 22, 2023
Chief Complaint: Research Food Technologist Follow Up
Subjective:
Events noted, sinus pause of about 5 seconds last evening
He was started on dopamine drip
Heart rate remains bradycardic, hypotension still a problem
Seems that nasal bleeding has stopped
Continues on mechanical ventilation
Continues on hypothermia protocol
Review of Systems
General: Unobtainable - Pat Unresp
Objective Data
Data Reviewed
Vital Signs / I&O / Oxygen:
Vital Signs
Temp Pulse Resp BP Pulse Ox
91.2 F L 54 16 75/47 100
04/22/23 06:00 04/22/23 06:00 04/22/23 06:00 04/21/23 21:00 04/22/23 06:00
Intake and Output
04/21/23 04/22/23 04/23/23
06:59 06:59 06:59
Intake Total 2767.9 / 2767.9
Output Total 1300 / 1300
Balance 1467.9 / 1467.9
SaO2 [A/C] 100
SaO2 100
Physical Exam
General: Respiratory Distress (n)
HEENT: Normocephalic, Moist Mucous Membranes and Other (NGT)
Cardiovascular: Regular Rhythm, Murmur and Peripheral Edema (n)
Respiratory: Clear, Non-Labored Respirations, Stridor and ET Tube
GI: Soft and Non Distended
Neurology: Other (sedated)
Skin: Dry
Labs/Micro/Reports
Lab Data
04/22/23 02:14
Laboratory Results
04/21/23 04/21/23 04/21/23
10:49 11:49 14:31
PT 12.4
INR 0.91
APTT 37.0 H
pH 7.39
pCO2 34 L
pO2 159 H
HCO3 20.6 L
O2 Delivery Level
04/21/23 04/22/23 04/22/23
20:08 00:08 02:14
PT 13.7 15.0 H
INR 1.03 1.16
APTT 41.4 H 45.3 H
pH 7.52 H 7.46 H
pCO2 23 L 28 L
pO2 136 H 99
HCO3 18.8 L 19.9 L
O2 Delivery Level
Microbiology
04/21/23 20:08 Nose Nasal Screen MRSA (PCR) - Final
MRSA not detected - performed by PCR methodology.
04/21/23 11:18 Nasal Swab Influenza Types A & B (ARACELIS) - Final
Negative for Influenza A & B, NAAT
Negative results must be combined with clinical observations
and patient history.
Nucleic Acid Amplification test (NAAT)performed on the
[employer] platform.
--- NOTE | 2023-04-22 07:45 | PTCARENOTE ---
Dr Wasserman here to eval pt , pt L pupil +1 no reaction , R pupil sluggish reaction , slight R corneal reflex , Left cornea is absent , pt L foot has a positive Babinski reflex , pt has had a previous stroke affecting the L side
--- NOTE | 2023-04-22 08:11 | CON.NEURO4 ---
Consultation - Neurology 4
-
CONSULTING PHYSICIAN: Daniel Acosta
REFERRING PHYSICIAN: Cardiology
DICTATED BY: Daniel Acosta
DATE/TIME OF REQUEST: 04/21/23
DATE/TIME OF CONSULTATION: 04/22/23
Reason for Consultation: Cardiac arrest
History of Present Illness:
Patient is a 68-year-old male with a past medical history of previous basal ganglia ischemic stroke, hypertension, hyperlipidemia presented to hospital after cardiac arrest. At home patient some coughing bloody material seen by and respiratory
difficulty at approximate 9:30 AM 04/21, 911 was called and when EMS arrived was found to be in cardiac arrest with asystole versus PEA, ACLS was started patient was given epinephrine and did have difficult intubation in the field. ROSC was obtained
and ET tube was dislodged in the ER which required reintubation.
Patient had poor mental status with hypothermia on admission and was noted by pulmonary ICU physician to have abnormal posturing, was started on targeted temperature management hypothermia protocol postcardiac arrest.
Patient had been taking Macrobid antibiotic for recent sinus infection diagnosed at urgent care.
Past Medical History: History ischemic stroke 2021, hyperlipidemia, lung nodule, hypertension, reported suspicion hypothalamic dysregulation of temperature
Surgical History: None
Family History: Non-contributory
Social History: , lives with family, no tobacco, moderate alcohol use
Allergies: No known drug allergies
Review of Symptoms:
Unable to obtain due to mental status
Physical Exam:
Middle-age man intubated appears ill, dried blood from the nasopharynx, ET tube in place eyes are clear anicteric, heart rate regular breathing unlabored breath sounds present bilaterally abdomen obese soft nontender no lower extremity edema or
rashes seen
Neurologic Examination:
Pupils are unequal right pupil 3 mm left pupil 2 mm, pupils are unreactive to light bilaterally, corneal reflex is present on the left side but absent on the right side, vestibular ocular reflex is negative (positive doll's eyes, did not test cough
or gag given the recent bleeding from nasopharynx.
Motor/sensory examination shows no spontaneous movement no myoclonus no movement to sternal rub or peripheral extremity pain in the upper extremities, there is spasticity of the left arm and contracture, left leg shows triple flexion response, right
leg shows no motor response
Unable to assess coordination
Unable to assess gait
Neuro Imaging: CT head with preserved gracia white matter differentiation, no edema see, chronic right caudate nucleus lacunar infarction
Moderate atrophy which is mildly out of proportion to patient's age
White matter microangiopathy
No acute infarct, hemorrhage, or mass
Impressions
1. Cardiac arrest, undergoing targeted temperature management and hypotheremia given unresponsive following the arrest, concern for anoxic brain injury, prognosis gaurded but not too early to give definite prognosis at this time
2. History previous right sided ischemic stroke with subsequent left sided weakenss and spasticity
3. Hypertension
Recommendations:
1. Continue targeted temperature management and then slow rewarming after 24 hours of hypothermia
2. Continuous EEG monitoring
3. Neurologic checks
4. Monitor for seizure activity and/or
5. Close monitoring of electrolytes with hypothermia and rewarming, monitor on cardiac telemetry
6. Monitor for shivering
7. Obtain brain imaging approximately 72 hours after the cardiac arrest after rewarmed, ideally obtain brain MRI without contrast although CT head noncontrast would be acceptable if there are concerns regarding patient stability for transportation
to MRI
8. No seizure medications recommended at this point
9. No changes recommended to current sedation regimen
10. Continue aspirin given the history of previous ischemic stroke
11. Prognosis will depend on neurologic examination after rewarming after sedation, EEG, brain imaging after rewarming
ICU time = 60 minutes
Will follow
Discussed patient care with: Nursing, hospitalist
--- NOTE | 2023-04-22 08:48 | W.PN.HOSP.TC ---
Today's Communication/Plan
-
Continue with antibiotics and appointment.
Follow culture data. Consult ID.
Consult ENT for nasal bleeding.
Consult neurology.
Assessment / Plan
Assessment / Plan
Bloody oral secretion causing gagging until respiratory arrest requiring intubation-unclear if blood has ENT source,hemoptysis or hematemesis.� Patient currently has some laceration on the left side of the tongue unclear if it is acute trauma and
also has nasal bloody secretions.� denies any falls.� No obvious external trauma evident.�
-No ongoing bloody secretions from ET tube.
-No obvious external GI blood loss
-CT face with contrast shows large amount of blood in the nasal cavities and maxillary sinus was clear. Ethmoid sinus partially obstructed. Sphenoid sinus abnormality noted. Unclear of the nasal bleeding he is in town from [employer]. There
is tongue laceration noted. Patient has been troubled with sinusitis for couple of weeks. Get an ENT opinion.
-H&H dropped noted but the seems to be stable compared to recent baseline. Continue to follow H&H.
Sepsis with shock suspected septic shock-elevated white count and hypothermia noted.� Echo showed normal EF. Unclear if it related to oropharyngeal infection or a UTI.� He has a cloudy urine.� She also has abnormal right upper lobe chest x-ray. Is
known to have recurrent UTIs.� Cover broadly with antibiotics pending culture data. Consult ID. Continue with vasopressor-currently on dopamine with bradycardia
Out of hospital PEA:-Patient apparently was in respiratory arrest and transient PEA code needing 1 cycle of epinephrine.� Follow on telemetry.
Asymmetric pupila-right larger than left. Left iris seems to be abnormal. With sluggish pupils and persistent hypothermia and unknown details of respiratory arrest/PEA cardiac arrest consult neurology for anoxia evaluation
Acute respiratory failure secondary to oral secretion issues-currently intubated for airway protection and secretion management.� Continue with vent support per pulmonary.
Hyponatremia-nephrology following
History of CVA with residual left-sided weakness-patient on dual antiplatelet agents.� Hold Plavix.� Continue rectal aspirin.
Hypertension-hold home medication and follow blood pressure which has been on the lower side.
Full code
Discussed with ichthyology teacher
Discussed with RETAIL COVERAGE MERCHANDISER LEAD
Total Critical Care Time__40___ minutes. I was immediately available to the patient and staff. I personally examined, reviewed labs, diagnostic images/reports, interpretations, treatment plans, discussed patient care with other providers and
family or caregivers (if patient is unable to make decisions), entered orders as appropriate and documented the medical record.
Anticipated Discharge: > 48 hours
Subjective/Interval History
-
Date of Service: April 22, 2023
Patient is intubated and sedated. Remains unresponsive. Remains hypothermic and needing vasopressors
Objective Data
-
Labs:
Laboratory Results
04/21/23 04/22/23 04/22/23
20:08 00:08 02:14
WBC 19.5 H
Hgb 11.4 L 10.3 L
Hct 30.3 L 28.7 L
Plt Count 175 D
PT 15.0 H
INR 1.16
APTT 45.3 H
HCO3 18.8 L 19.9 L
Sodium 121 L 125 L
Potassium 4.4 3.7
Chloride 97 L 102
Carbon Dioxide 18 L 19 L
BUN 22 H 17
Creatinine 0.8 0.7
Glucose 91 91
Calcium 8.1 L 7.5 L
Total Bilirubin 1.3 1.1
AST 72 H 64 H
ALT 46 41
Alkaline Phosphatase 140 H 119
04/22/23 04/22/23 04/22/23
06:00 07:24 19:24
WBC
Hgb
Hct
Plt Count
PT
INR
APTT
HCO3 Pending Pending
Sodium Cancelled Pending
Potassium Cancelled Pending
Chloride Cancelled Pending
Carbon Dioxide Cancelled Pending
BUN Cancelled Pending
Creatinine Cancelled Pending
Glucose Cancelled Pending
Calcium Cancelled Pending
Total Bilirubin Cancelled Pending
AST Cancelled Pending
ALT Cancelled Pending
Alkaline Phosphatase Cancelled Pending
Vital Signs:
Vital Signs
Temp Pulse Resp BP Pulse Ox
91.2 F L 54 16 75/47 99
04/22/23 06:00 04/22/23 06:00 04/22/23 06:00 04/21/23 21:00 04/22/23 07:47
I&O
04/21/23 04/22/23 04/23/23
06:59 06:59 06:59
Intake Total 2767.9 / 2767.9
Output Total 1300 / 1300
Balance 1467.9 / 1467.9
Review of Systems
-
Unable to obtain full review of systems at this time due to: Patient Intubation
Physical Exam
-
General: No Apparent Distress
HEENT: PERRLA (Right pupil dilated and larger compared to left. Left iris slightly opaque. Both pupils with minimal responsive to light) and Other (large dried up bloody clot in nares;no active bleeding)
Respiratory: Clear to Auscultation (anteriorly)
Cardiac: Regular Rhythm, S1/S2 and Bradycardic
GI: Soft
Musculoskeletal: No Edema
Neuro: Negative Awake, Alert or No Motor Deficits (LUE contracture -in cast)
Psych: Calm
Data Reviewed
-
CT Scan: Report Reviewed by me (ct facial bones )
Labs: Labs Reviewed by me
--- NOTE | 2023-04-22 08:49 | W.PN.NEPH.PH ---
Today's Communication / Plan
-
Maintain isotonic IV fluids with sodium bicarb at in setting of metabolic acidosis and hyponatremia thought to be due to underlying volume depletion
Assessment/Plan
-
Impression:
-hyponatremia
-VDRF
-s/p PEA arrest
-HTN, recent hypotension
-lung nodule RLL
-elevated LFTs
-sinus infection/UTI
-epistaxis
Plan
-critically ill in ICU on vent an pressor support, notably bradycardic
-checked Urine studies; urine sodium 95, urine osmolarity 486, proBNP less than 400: Appears to be consistent with hypovolemia
-Abx per primary team
-maintain 1/2NS with 75 meq of sodium bicarbonate at 80cc/hr for now in setting of hyponatremia and metabolic acidosis
-keep MAP > 65, currently hemodynamically unstable on pressor
-active bleeding from NGT tube noted
-Previously d/w family
-critical care time 31 minutes, patient critically ill on ventilator and with dopamine support for hemodynamic instability and bradycardia
Total Time Spent with Patient (in minutes): 31 minutes critical care time
-
-
Date of Service: April 22, 2023
CC / HPI / ROS
-
Chief Complaint:
Hyponatremia
History of Present Illness:
Serum sodium was up to 125
Hemodynamically labile and with bradycardia on dopamine support
NG tube with active hemorrhage
Intubated
Review of Systems:
Epistaxis ongoing
Nonoliguric
Mendez
Labs
-
Labs:
WBC 19.5 10^3/uL (4.8-10.8) H 04/22/23 02:14
RBC 3.24 10^6/uL (4.70-6.10) L 04/22/23 02:14
Hgb 10.3 g/dL (13.0-18.0) L 04/22/23 02:14
Hct 28.7 % (39.0-52.0) L 04/22/23 02:14
Plt Count 175 10^3/uL (130-400) D 04/22/23 02:14
eGFR Cancelled 04/22/23 06:00
Vwh-K-Pqdgccynzcg Pept 376 pg/ml 04/21/23 10:49
Physical Exam
-
Vital Signs:
Vital Signs
Temp Pulse Resp BP Pulse Ox
91.2 F L 54 16 75/47 99
04/22/23 06:00 04/22/23 06:00 04/22/23 06:00 04/21/23 21:00 04/22/23 07:47
Cardiovascular:: Regular rate and rhythm (Bradycardia)
Respiratory:: Bilateral: Coarse
Lung Excursion:: Normal
Abdomen:: Nontender and Soft
Bowel Sounds:: Decreased
Extremity Edema:: +1: Bilateral: (Trace)
Mendez Catheter: Yes
--- NOTE | 2023-04-22 08:56 | W.PN.CD ---
Today's Communication / Plan
-
Continue to monitor heart rate.
Bradycardia.
- Patient with sinus bradycardia in the 30s. Was up to 40 at the bedside.
-Likely precipitated by cooling
-Continue dopamine. Will discuss duration of cooling with senior managing director. If further increase in dopamine required or further drop in heart rate then would abbreviate duration of cooling.
Impression / Plan
-
.
Arrest. Suspected respiratory arrest reported PEA arrest that responded to epinephrine and intubation. Information obtained in discussion with Dr. Dwyer. No shock or defibrillation reported.
-Cooling protocol/temperature management per senior managing director.
-Continue supportive treatment
-Wean pressors as tolerated
-Echocardiogram-normal left ventricular function
-initial troponin negative. Follow-up pending.
.
Bradycardia. Patient with sinus bradycardia in the 30s. Was up to 40 at the bedside.
-Likely precipitated by cooling Can contact
-Continue dopamine. Will discuss duration of cooling with senior managing director. If further increase in dopamine required or further drop in heart rate then would abbreviate duration of cooling.
.
VDRF.
-Reported difficult reintubation in ER.
-Management directed by pulmonary/critical care
-COVID-negative
-Left upper lobe infiltrate reported by pulmonary. Patient reportedly coughing prior to presentation. Antibiotics as directed by pulmonary
Anemia.
-Patient with prior history of anemia based on hemoglobin in March 2022 initial hemoglobin here 14.5 and now with drop of 11.9. Unclear if this is a true drop. Continue to follow trend of hemoglobin and monitor for evidence of bleeding.
Physical Exam
Vital Signs/Labs
Vital Signs
Temp Pulse Resp BP Pulse Ox
91.2 F L 54 16 75/47 99
04/22/23 06:00 04/22/23 06:00 04/22/23 06:00 04/21/23 21:00 04/22/23 07:47
04/21/23 04/22/23 04/23/23
06:59 06:59 06:59
Actual Weight 65.9 kg
04/22/23 02:14
PT 15.0 Sec (11.4-14.6) H 04/22/23 02:14
INR 1.16 04/22/23 02:14
APTT 45.3 Sec (23.4-35.0) H 04/22/23 02:14
Magnesium 2.0 mg/dl (1.6-2.3) 04/22/23 02:14
Triglycerides 105 mg/dl (10-149) 04/21/23 20:08
04/21/23
10:49
Ber-P-Pzyxljlvvfq Pept 376
LAB Results
04/21/23 04/21/23 04/22/23
10:49 20:08 02:14
Troponin I < 0.012 0.020 < 0.012 D
Physical Exam
Constitutional: No acute distress and Other (Sedated. Dried blood around ET tube)
Cardiovascular: Rhythm & rate is regular
Respiratory: Respiratory effort normal
GI: Soft
Neuro/Psych: Alert
Data Reviewed
-
Date of Service: April 22, 2023
Medical Decision Making: Reviewed Test Results
EKG: Report Reviewed by me
Medical Tests (PFT, Pathology etc): Image Personally Visualized and interpreted
Labs: Labs Reviewed by me
--- NOTE | 2023-04-22 09:00 | PTCARENOTE ---
pt TTM , on vent , propofol at 30 mcg , fentanyl 100mcg , HR sinus ray 30s , dopamine at 7mcg , arterial BP 110/58 , bloody oral and nasal secretions , ENT consulted , pt suctioned for large amt of bloody secretions , via ett and oral , Mendez
draining large amts of clear yellow urine , labs noted from am
[2023-04-22] MEDS: SUBLIMAZE 100 IV ×2 (09:04→18:25)
[2023-04-22 09:09] LABS: B.E. 0.4 mmol/L; HCO3 21.9 mmol/L (21-28); PCO2 25 mmHg (35-48); PO2 148 mmHg (83-108); pH 7.55 (7.35-7.45)
[2023-04-22] MEDS: NSS (PRESERVATIVE FREE) 10 ML IV (09:09)
[2023-04-22] MEDS: REFRESH CELLUVISC GEL 1 DROPS OPHTH ×2 (09:10→21:00)
[2023-04-22] MEDS: PROTONIX IV 40 MG IV (09:10)
[2023-04-22 09:25] LABS: Lactic Acid 0.9 mmol/L (0.7-2.0)
[2023-04-22 09:26] LABS: ALT (SGPT) 41 U/L (0-50); AST (SGOT) 61 U/L (17-59); Albumin 2.4 g/dl (3.5-5.0); Alkaline Phosphatase 119 U/L (38-126); Blood Urea Nitrogen 14 mg/dl (9-20); Calcium 7.7 mg/dl (8.4-10.2); Carbon Dioxide 22 mmol/L (22-30); Chloride 105 mmol/L (98-107); Estimated Creatinine Clearance 87 ml/min; Glucose 127 mg/dl (70-99); Magnesium 2.1 mg/dl (1.6-2.3); Sodium 129 mmol/L (135-145); Total CK 550 U/L (55-170); Total Protein 4.8 g/dl (6.3-8.2); eGFR > 60.00
[2023-04-22 09:35] LABS: Troponin I 0.014 ng/ml
--- NOTE | 2023-04-22 10:20 | CON.ID ---
Consultation
-
Date/Time Consultation Requested: April 22, 2023 0834
Date/Time Consultation Performed: April 22, 2023 1020
Requesting Provider: Dr. Luis Villatoro
Performing Provider: Dr. Rhonda Ashton
Reason for Consultation: Possible septic shock
Chief Complaint / Past History
Chief Complaint
Choking on bloody oral secretions.
History of Present Illness
History obtained from review of medical records since patient is currently intubated and sedated. He is a 68-year-old male with history of CVA on Plavix, hypertension who reportedly has been having sinus problems since new year. He tested negative
for COVID and chest x-ray was negative at urgent care on April 12. He was prescribed an antibiotic with some improvement. On April 19 his PCP prescribed clarithromycin. Yesterday morning patient was found in respiratory distress, choking on
bloody nasal and oral secretions. When EMS arrived, patient was noted to be in PEA respiratory arrest. He was resuscitated and there was difficulty with intubation. In the ER he was reintubated. His white count was 24.8. He is hypothermic on
cooling blanket. Chest x-ray showed no acute cardiopulmonary changes. Head CT showed old CVA. Facial bone CT showed no fractures, partial opacification of admitted air cells and near complete opacification of nasal cavity with some increased
attenuation suggesting possible blood products. Per ENT, no bacterial sinusitis. He most likely had viral URI with epistaxis.
Past History
Additional Past Medical History:
CVA on Plavix
Hypertension
Dyslipidemia
lung nodule
Allergy History:
No Known Allergies Allergy (Verified 04/21/23 10:41)
Medications Reviewed: Yes
Current Antibiotics:
Vancomycin
Zosyn
Social History
Tobacco: Non-Smoker
Alcohol: Occasional
Drug: None
Personal:
Family History
Family History: Not Pertinent
Review of Systems
Review of Systems
Unable to obtain as patient currently intubated and sedated
Vital Signs
Temp Pulse Resp BP Pulse Ox
91.2 F L 54 16 75/47 99
04/22/23 06:00 04/22/23 06:00 04/22/23 06:00 04/21/23 21:00 04/22/23 07:47
Selected Entries
04/21/23
20:00
Temp Lowest 89.7 F L
Physical Exam
Physical Exam
Constitutional: Acutely Ill
Head: Other (NGT in place. Positive dried blood in both nasal passages. )
Eyes: No Conjunctival Hemorrhage and Sclera Anicteric
Cardiovascular: S1/S2 and Other (bradycardic)
Pulmonary: Clear
Gastrointestinal: Soft, Non Tender, Non Distended and Normal Bowel Sounds
Genito-Urinary: Mendez and Clear Urine
Extremities: Negative Edema
Musculoskeletal: Other (left hand/wrist in cast)
Lines: PICC (RUE)
Lab / Diagnostic Study Results
04/22/23 02:14
04/22/23 08:56
Abs Immat Gran (auto) 0.7 10^3/uL (0-0.05) H 04/21/23 10:49
Absolute Neuts (auto) 21.7 10^3/uL (1.4-6.5) H 04/21/23 10:49
Absolute Lymphs (auto) 0.9 10^3/uL (1.2-3.4) L 04/21/23 10:49
Absolute Monos (auto) 1.4 10^3/uL (0.1-0.6) H 04/21/23 10:49
Absolute Basos (auto) 0.1 10^3/uL (0-0.2) 04/21/23 10:49
Immature Gran % 3.0 % (0-0.5) H 04/21/23 10:49
Neutrophils % 87.4 % (42.2-75.2) H 04/21/23 10:49
Lymphocytes % 3.4 % (20.5-51.1) L 04/21/23 10:49
Monocytes % 5.7 % (1.7-9.3) 04/21/23 10:49
Eosinophils % 0.1 % (0-6) 04/21/23 10:49
Basophils % 0.4 % (0-2) 04/21/23 10:49
PT 15.0 Sec (11.4-14.6) H 04/22/23 02:14
INR 1.16 04/22/23 02:14
Lactic Acid 0.9 mmol/L (0.7-2.0) 04/22/23 08:56
Microbiology Results
Micro:
04/21/23 20:08 Nasal Screen MRSA (PCR) - Final
Nose MRSA not detected - performed by PCR methodology.
04/21/23 11:18 Influenza Types A & B (ARACELIS) - Final
Nasal Swab Negative for Influenza A & B, NAAT
Negative results must be combined with clinical observations
and patient history.
Nucleic Acid Amplification test (NAAT)performed on the
[employer] platform.
04/21/23 10:52 Urine Culture - Pending
Urine
04/21/23 10:49 Blood Culture - Pending
Blood/Venous
04/21/23 10:52 Blood Culture - Pending
Blood/Venous
04/21/23 CXR: The 2.9 cm pulmonary mass in the superior segment of the right lower lobe is not significantly changed when compared with the 04/07/2022 examination.
The lungs are otherwise clear
04/21/[address]: There are no acute intracranial abnormalities. Old 4 mm lacunar infarct in the body of the caudate on the right
04/21/[address]: �Post placement of nasogastric tube and endotracheal tube, expected appearance.
2. � Partial opacification of ethmoid air cells and near complete opacification of the nasal cavity as above. Area of opacification with some increased attenuation suggesting possible blood products. Source of hemorrhage is indeterminate on this
examination.
3. � No acute facial bone fractures.
4. 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
5. � Abnormal asymmetric sphenoid bone on the left as detailed above with thinning and abnormal lucency. Differential considerations include sphenoid dysplasia and meningocele. Given sclerotic margins, metastatic disease is considered unlikely.
Could be further evaluated with follow-up MRI as warranted.
6. 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
Assessment / Plan
# s/p outpatient respiratory/PEA arrest
- most likely due to choking from significant epistaxis
-CXR negative for aspiration
# SIRS from respiratory/cardiac arrest
Leukocytosis/hypotension, hypothermia
- Follow blood cx's
-DC Vancomycin
# Recent sinusitis on abx x 10d
CT without sinusitis
No need to treat with abx
# Bacteruria
- Incidental finding. Possibly colonization
- Narrow Zosyn to ceftriaxone.
--- NOTE | 2023-04-22 10:32 | CON.MD ---
Consultation - Medical
-
Otolaryngology consulted for hemoptysis, epistaxis.
Full consult dictated.
With regards to the sinus issue, review of CT reveals some clouding of ethmoid but no evidence of bacterial sinusitis. His symptoms prior to admission which were diagnosed as a sinus infection as an outpatient, were instead a likely viral URI. From
sinus point of view he does not need antibiotics.
Nasal and oral exam fails to reveal active source of bleeding, but exam is limited by presence of ET and NG tubes. He likely had left sided epistaxis which has now ceased.
For the time being would avoid nasal packing because bleeding has now resolved, and nasal packing would require removal of NG tube.
We will therefore observe; if there is renewed significant bleeding we may need to remove NG and pack the nose.
[2023-04-22] MEDS: ADRENALIN 250 IV (10:39)
[2023-04-22] MEDS: ASPIRIN 300 MG RECTAL (10:53)
[2023-04-22 11:17] LABS: Potassium 3.2 mmol/L (3.5-5.1)
[2023-04-22 11:28] LABS: CKMB 10.6 ng/ml (0.0-2.4)
[2023-04-22] MEDS: LEVOPHED 250 IV ×4 (11:31→22:25)
[2023-04-22 12:07] LABS: Hematocrit 27.8 % (39.0-52.0); Hemoglobin 10.2 g/dL (13.0-18.0); Mean Corp Hgb Conc. 36.7 g/dL (33.0-37.0); Mean Corpuscular Hgb 32.1 pg (27.0-31.0); Mean Corpuscular Volume 87.4 fL (80.0-94.0); Platelet Count 174 10^3/uL (130-400); Red Blood Cell Count 3.18 10^6/uL (4.70-6.10); Red Cell Dist. Width 13.7 % (11.5-14.5); White Blood Cell Count 15.6 10^3/uL (4.8-10.8)
[2023-04-22] MEDS: ROCEPHIN 1000 MG IV (12:31)
[2023-04-22] MEDS: STERILE WATER FOR INJECTION 10 ML IV (12:31)
--- NOTE | 2023-04-22 13:00 | PTCARENOTE ---
pt had low BPs at 11:00 epinephrine added at 10:30 and norepinephrine started at 11:30 , pt now on a 24hour EEG , pt notified of his condition by Dr Dwyer , pt at bedside and updated on current conditions and plan of care , TTM continues
, BP very labile with Meds and needs frequent adjustments to keep up with goals
--- NOTE | 2023-04-22 14:21 | CM ---
CM following re: discharge planning.
Discussed in rounds, reviewed pt's chart, met with pt. Pt's spouse and pt's niece at bedside.
Pt is a 68 year old male, admitted with primary dx of Cardiac arrest at home. Per Rounds, pt remains intubated, unresponsive, remains hypothermic and needing vasopressors. Continue supportive care.
Per spouse Katiana, they have been living together all life, have no children. per spouse, pt has been at [place] [facility], has a walker and difficult to use, was at [facility]. Pt's spouse went to [facility] she just lost her 'mother
on and now I am loosing
him. He was a wonderful man, very polite and I do not know how I will live without him'. Emotional support provided again and again during entire meeting with the spouse at the pt and his niece.
PCP: Ashkan Warner
Pharmacy: [facility]
D/C plan: TBD and will depend on pt's progress.
CM will follow with discharge plan updates as hospitalization progresses
[2023-04-22] MEDS: DOPamine 400 MG 250 IV (14:29)
[2023-04-22 14:38] LABS: ALT (SGPT) 41 U/L (0-50); AST (SGOT) 63 U/L (17-59); Albumin 2.7 g/dl (3.5-5.0); Alkaline Phosphatase 139 U/L (38-126); Blood Urea Nitrogen 13 mg/dl (9-20); Calcium 7.8 mg/dl (8.4-10.2); Carbon Dioxide 20 mmol/L (22-30); Chloride 104 mmol/L (98-107); Estimated Creatinine Clearance 76 ml/min; Glucose 175 mg/dl (70-99); Potassium 3.1 mmol/L (3.5-5.1); Sodium 131 mmol/L (135-145); Total Bilirubin 0.9 mg/dl (0.2-1.3); Total CK 492 U/L (55-170); Total Protein 5.2 g/dl (6.3-8.2); eGFR > 60.00
[2023-04-22] MEDS: KCL 270 MEQ IV (15:16)
[2023-04-22 15:43] LABS: CKMB 9.7 ng/ml (0.0-2.4)
--- NOTE | 2023-04-22 15:48 | PTCARENOTE ---
pt recent potassium 3.1 , Dr Dwyer aware and pt is receiving 40 KCL in 1/2 Nss , pt is to be rewarmed at 1921, Dr Dwyer aware of rewarming time
--- NOTE | 2023-04-22 19:21 | PTCARENOTE ---
rewarming initiated; excel expert, pt intubated, unresponsive,R pupil 3S, L pupil 2S. cEEG continues. q4 neuro checks per work list. weak cough with inline suctioning/no gag, no corneals. BP labile. SB HR 40s-50s. R radial WNL, leveled/zeroed.
RDL PICC WNL-levo, epi, fent, prop, bicarb gtts infusing as documented on work list. ETT #7/, AC 16/450/40/5, Sat 100%. bloody secretions from nose and mouth. NGT with minimal amt brown/bloody drainage. Mendez draining adequate amt yellow urine.
[2023-04-22 21:01] LABS: B.E. -1.9 mmol/L; HCO3 20.3 mmol/L (21-28); O2 Saturation % 99.8 % (94-98); PCO2 26 mmHg (35-48); PO2 137 mmHg (83-108)
[2023-04-22 21:13] LABS: Lactic Acid 2.8 mmol/L (0.7-2.0)
[2023-04-22 21:19] LABS: % Basophils 0.2 % (0-2); % Eosinophils 0.2 % (0-6); % Immature Granulocytes 0.9 % (0-0.5); % Lymphocytes 3.4 % (20.5-51.1); % Monocytes 5.2 % (1.7-9.3); % Neutrophils 90.1 % (42.2-75.2); Absolute Immature Granulocytes 0.2 10^3/uL (0-0.05); Absolute Lymphocytes 0.6 10^3/uL (1.2-3.4); Absolute Neutrophils 16.7 10^3/uL (1.4-6.5); Hematocrit 26.7 % (39.0-52.0); Mean Corp Hgb Conc. 37.5 g/dL (33.0-37.0); Mean Corpuscular Hgb 31.9 pg (27.0-31.0); Mean Corpuscular Volume 85.3 fL (80.0-94.0); Mean Platelet Volume 12.1 fL (7.4-10.4); Nucleated Red Blood Cells % 0.7 % (-); Platelet Count 184 10^3/uL (130-400); Red Blood Cell Count 3.13 10^6/uL (4.70-6.10); Red Cell Dist. Width 14.3 % (11.5-14.5); White Blood Cell Count 18.6 10^3/uL (4.8-10.8)
[2023-04-22 21:24] LABS: ALT (SGPT) 37 U/L (0-50); AST (SGOT) 57 U/L (17-59); Albumin 2.5 g/dl (3.5-5.0); Alkaline Phosphatase 129 U/L (38-126); Blood Urea Nitrogen 12 mg/dl (9-20); Calcium 7.7 mg/dl (8.4-10.2); Carbon Dioxide 19 mmol/L (22-30); Estimated Creatinine Clearance 76 ml/min; Glucose 271 mg/dl (70-99); Magnesium 2.2 mg/dl (1.6-2.3); Phosphorus 2.9 mg/dl (2.5-4.5); Total Bilirubin 0.6 mg/dl (0.2-1.3); Total CK 369 U/L (55-170); Total Protein 4.8 g/dl (6.3-8.2); eGFR > 60.00
[2023-04-22 21:49] LABS: CKMB 8.1 ng/ml (0.0-2.4)
[2023-04-22 21:53] LABS: Chloride 101 mmol/L (98-107); Potassium 3.4 mmol/L (3.5-5.1); Sodium 131 mmol/L (135-145)
[2023-04-23] MEDS: TYLENOL ORAL SOLUTION 650 MG TUBE ×4 (00:26→17:09)
[2023-04-23] MEDS: SODIUM BICARBONATE 1075 MEQ IV (00:26)
[2023-04-23] MEDS: BUSPAR 30 MG TUBE ×3 (00:26→15:33)
[2023-04-23 00:49] LABS: Hematocrit 25.7 % (39.0-52.0); Hemoglobin 9.6 g/dL (13.0-18.0); Mean Corp Hgb Conc. 37.4 g/dL (33.0-37.0); Mean Corpuscular Volume 85.7 fL (80.0-94.0); Mean Platelet Volume 12.3 fL (7.4-10.4); Platelet Count 194 10^3/uL (130-400); Red Cell Dist. Width 14.2 % (11.5-14.5); White Blood Cell Count 17.5 10^3/uL (4.8-10.8)
[2023-04-23 00:57] LABS: ALT (SGPT) 34 U/L (0-50); AST (SGOT) 60 U/L (17-59); Albumin 2.2 g/dl (3.5-5.0); Alkaline Phosphatase 110 U/L (38-126); Blood Urea Nitrogen 14 mg/dl (9-20); Calcium 7.8 mg/dl (8.4-10.2); Carbon Dioxide 18 mmol/L (22-30); Chloride 103 mmol/L (98-107); Estimated Creatinine Clearance 87 ml/min; Glucose 244 mg/dl (70-99); Magnesium 2.2 mg/dl (1.6-2.3); Potassium 3.6 mmol/L (3.5-5.1); Sodium 133 mmol/L (135-145); Total Bilirubin 0.4 mg/dl (0.2-1.3); Total Protein 4.6 g/dl (6.3-8.2); eGFR > 60.00
[2023-04-23 01:07] LABS: Lactic Acid 4.6 mmol/L (0.7-2.0)
[2023-04-23] MEDS: DIPRIVAN 100 IV (01:59)
--- NOTE | 2023-04-23 02:10 | PTCARENOTE ---
UO low, 10cc/hr x 2 hr, KFlahertyNP aware, 1L LR bolus ordered per PRISON WARDEN.
[2023-04-23] MEDS: LR 1000 IV (02:19)
[2023-04-23] MEDS: LEVOPHED 250 IV ×4 (03:10→15:33)
[2023-04-23 04:40] LABS: B.E. -0.9 mmol/L; HCO3 21.2 mmol/L (21-28); PCO2 26 mmHg (35-48); PO2 158 mmHg (83-108); pH 7.52 (7.35-7.45)
[2023-04-23 04:42] LABS: O2 Therapy VENT
[2023-04-23 04:47] LABS: Hematocrit 25.2 % (39.0-52.0); Hemoglobin 9.1 g/dL (13.0-18.0); Mean Corp Hgb Conc. 36.1 g/dL (33.0-37.0); Mean Corpuscular Hgb 31.6 pg (27.0-31.0); Mean Corpuscular Volume 87.5 fL (80.0-94.0); Mean Platelet Volume 12.6 fL (7.4-10.4); Platelet Count 169 10^3/uL (130-400); Red Blood Cell Count 2.88 10^6/uL (4.70-6.10); Red Cell Dist. Width 14.1 % (11.5-14.5); White Blood Cell Count 17.6 10^3/uL (4.8-10.8)
[2023-04-23 04:59] LABS: INR 1.15; Lactic Acid 3.6 mmol/L (0.7-2.0)
[2023-04-23 05:00] LABS: APTT 41.8 Sec (23.4-35.0)
--- NOTE | 2023-04-23 05:00 | PTCARENOTE ---
no changes in pt assessment, neuro assessment remains same per work list documentation. SBP up and down from 80s-160s requiring frequent pressor titrations. continues TTM rewarming phase- approaching goal.
[2023-04-23 05:07] LABS: ALT (SGPT) 34 U/L (0-50); AST (SGOT) 55 U/L (17-59); Albumin 2.1 g/dl (3.5-5.0); Alkaline Phosphatase 112 U/L (38-126); Blood Urea Nitrogen 14 mg/dl (9-20); Calcium 7.7 mg/dl (8.4-10.2); Carbon Dioxide 20 mmol/L (22-30); Chloride 101 mmol/L (98-107); Estimated Creatinine Clearance 68 ml/min; Glucose 172 mg/dl (70-99); Magnesium 1.9 mg/dl (1.6-2.3); Phosphorus 2.8 mg/dl (2.5-4.5); Potassium 3.8 mmol/L (3.5-5.1); Sodium 132 mmol/L (135-145); Total Bilirubin 0.4 mg/dl (0.2-1.3); Total Protein 4.4 g/dl (6.3-8.2); eGFR > 60.00
[2023-04-23] MEDS: SUBLIMAZE 100 IV (05:38)
[2023-04-23 06:00] VITALS: BMI 25.9
[2023-04-23] MEDS: ASPIRIN RECTAL (07:50)
--- NOTE | 2023-04-23 07:52 | W.PN.INTV ---
Today's Communication / Plan
Recommendations
MV
EEG
Atbs
IVFs
Pressors
Assessment
-
Assessment:
Mr Raúl Reddy is a 68/M adm 04-21. Found coughing bloody material by at 9:30 am, called 911, found in respiratory arrest, asystole/PEA, ALCS started, orally intubated, epinephrine x1. Reportedly recent sinus infection seen at , started
atb bid (apparently clarithromycin) with improvement. ETT dislodged at ER, reintubated
Impression:
Cardiac arrest at home, unknown duration, attended by EMS upon arrival
Asystole/PEA
Intubated as scene
ETT expelled at ER, reintubated
Suspected epistaxis based on facial bones CT on adm vs hemoptysis
Hypothermia 34.1 C on adm
Recent sinus infection s/p atb
Acute on chronic leukocytosis
Hyperoxia on ABG (apparently on fiO2 1.0)
Likely acute on chronic hyponatremia
Resolved mild lactic acidosis
Mild transaminitis
Normal troponin/BNP
Abnormal UA, suspected UTI
UDS negative
COVID/flu negative
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
Ischemic CVA, R sided, L sided weakness/spasticity, on plavix/ASA
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
COVID illness Mar 2022, s/p paxlovid
LUE cast
HTN
HLD
Lung lung nodule (RLL sup segment, on CT 09-05-21)
Non-smoker
Plan:
Cardiac arrest
Unclear etiology
Limited information at EMR, no EMS record in chart
D/w over phone 04-21: patient presented cardiac arrest while in ambulance at home driveway: she was told at ER that arrest 'was brief'
Bloody secretions in ETT but no evidence of pulm edema on CXR
Recent sinus infection, received cefpodoxime for 6/10 d, followed by clarithromycin for 2-3 d TOOLING MANAGER (no QTc prolongation at ER EKG)
Intubated at scene
ETT dislodged at ER, reintubated
Continue ACV
16-450-5-0.4 (100%), persistent resp alkalosis, adjusted ACV to 14 and 400
Sedation, analgesia
Daily sedation holiday
Epistaxis
Suspected blood at ethmoid cells on CT
ENT evaluation 04-22: suspected L epistaxis which has ceased, rec observation
Noted posturing on physical exam on adm
Neurology consultation appreciated
Suspected anoxic brain injury
EEG, continuous
Head CT in 72 hrs since adm (per policy no MRI with A-line in place)
Hypothermia protocol started 04-21
Reached normotemia 04-22 at 5:55 am
Interim sinus bradycardia
Sinus pause of 5sec on 04-21
Suspected related to cooling protocol
Started dopamine gtt
Transitioned to NE, added epinephrine
SB and interim hypotension have improved
Continue empiric atbs: vanco/zosyn. Vanco d/c'ed (MRSA negative)
Adm CXR was suspicious for L apical infiltrate, however, CXR post PICC did not show infiltrate (just persistence of known RLL nodule)
Follow cxs:
Resp secs (not sent yet, d/w RT will sent 04-23), blood (so far negative), U (negative)
PICC placed at E 04-21
Metabolic acidosis and hyponatremia
Bicarb gtt required initially, transitioned to NS 04-23
Renal following
Prognosis unfortunately remains guarded
Full code
D/w Mrs Reddy on a daily basis
Critical care time: 35 min
Diagnostic tests:
CXR 04-21-23: CXR post PICC did not show infiltrate (just persistence of known RLL nodule)
CXR 04-21-23 c/w 04-07-22: portable, rotated, L sided volume loss, suspected FRANCISCO infiltrate. Chronic R mid field 2.8 cm oval density (less dense than before)
Head CT 04-21-23
IMPRESSION:
There are no acute intracranial abnormalities.
4 mm lacunar infarct in the body of the caudate on the right
There is moderate diffuse cortical and cerebellar atrophy with moderate nonspecific white matter changes
Facial bones CT
IMPRESSION:
1. Post placement of nasogastric tube and endotracheal tube, expected appearance.
2. Partial opacification of ethmoid air cells and near complete opacification of the nasal cavity as above. Area of opacification with some increased attenuation suggesting possible blood products. Source of hemorrhage is indeterminate on this
examination.
3. No acute facial bone fractures.
4. 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
5. Abnormal asymmetric sphenoid bone on the left as detailed above with thinning and abnormal lucency. Differential considerations include sphenoid dysplasia and meningocele. Given sclerotic margins, metastatic disease is considered unlikely.
Could be further evaluated with follow-up MRI as warranted.
6. 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
TTE 04-07-22
CONCLUSIONS
Normal biventricular size and systolic function without regional wall motion
abnormality. Estimated LVEF 60-65%.
Mild concentric left ventricular hypertrophy.
Mild/moderate mitral regurgitation.
Mild tricuspid regurgitation. Normal PASP.
No prior study available for comparison.
Subjective Dataa
Subjective Data
Date of Service:
Date of Service: April 23, 2023
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
Subjective:
No major events reported overnight
Continues on mechanical ventilation
Reached normothermia at 5:55 this morning
Bradycardia still present but improved, hypotension control, currently on norepinephrine and epinephrine
Review of Systems
General: Unobtainable - Sedation
Objective Data
Data Reviewed
Vital Signs / I&O / Oxygen:
Vital Signs
Temp Pulse Resp BP Pulse Ox
97.6 F 59 16 146/72 100
04/23/23 07:00 04/23/23 06:00 04/23/23 06:00 04/22/23 12:18 04/23/23 07:39
Intake and Output
04/22/23 04/23/23 04/24/23
06:59 06:59 06:59
Intake Total 2767.9 / 2885.4 4644.7 / 4644.7
Output Total 1300 / 1475 2535 / 2535
Balance 1467.9 / 1410.4 2109.7 / 2109.7
SaO2 [A/C] 100
SaO2 100
Physical Exam
General: Respiratory Distress (n)
HEENT: Normocephalic, Moist Mucous Membranes and Other (NGT)
Cardiovascular: Regular Rhythm, Murmur and Peripheral Edema (n)
Respiratory: Clear, Non-Labored Respirations, Stridor and ET Tube
GI: Soft and Non Distended
Neurology: Other (sedated)
Skin: Dry
Labs/Micro/Reports
Laboratory Results
04/22/23 04/22/23 04/23/23
08:56 20:50 04:29
PT 15.0 H
INR 1.15
APTT 41.8 H
pH 7.55 H 7.50 H 7.52 H
pCO2 25 L 26 L 26 L
pO2 148 H 137 H 158 H
HCO3 21.9 20.3 L 21.2
O2 Delivery Level Vent
Microbiology
04/21/23 10:52 Urine Urine Culture - Final
No Significant Growth
04/21/23 10:52 Blood/Venous Blood Culture - Preliminary
No Growth in 24 hours- Final report to follow
04/21/23 10:49 Blood/Venous Blood Culture - Preliminary
No Growth in 24 hours- Final report to follow
04/21/23 20:08 Nose Nasal Screen MRSA (PCR) - Final
MRSA not detected - performed by PCR methodology.
04/21/23 11:18 Nasal Swab Influenza Types A & B (ARACELIS) - Final
Negative for Influenza A & B, NAAT
Negative results must be combined with clinical observations
and patient history.
Nucleic Acid Amplification test (NAAT)performed on the
[employer] platform.
--- NOTE | 2023-04-23 07:54 | W.PN.HOSP.TC ---
Today's Communication/Plan
-
cotinue abx
follow hh closely
wean vasopressors
Assessment / Plan
Assessment / Plan
Bloody oral secretion causing gagging until respiratory arrest requiring intubation-unclear if blood has ENT source,hemoptysis or hematemesis.� Patient currently has some laceration on the left side of the tongue unclear if it is acute trauma and
also has nasal bloody secretions.� denies any falls.� No obvious external trauma evident.�
-No ongoing bloody secretions from ET tube.
-No obvious external GI blood loss
-CT face with contrast shows large amount of blood in the nasal cavities and maxillary sinus was clear. Ethmoid sinus partially obstructed. Sphenoid sinus abnormality noted. Unclear of the nasal bleeding he is in town from [place]. There
is tongue laceration noted. Patient has been troubled with sinusitis for couple of weeks. ENT opinion noted. Observe for now
-H&H dropped noted but the seems to be stable compared to recent baseline. Continue to follow H&H.
Sepsis with shock suspected septic shock-elevated white count and hypothermia noted.� Echo showed normal EF. Unclear if it related to oropharyngeal infection or a UTI.� He has a cloudy urine.� She also has abnormal right upper lobe chest x-ray. Is
known to have recurrent UTIs.� Continue with ceftriaxone per ID continue with vasopressor-currently on norepinephrine and epinephrine. Wean as able.
Out of hospital PEA:-Patient apparently was in respiratory arrest and transient PEA code needing 1 cycle of epinephrine.� Follow on telemetry.
Asymmetric pupil-right larger than left. Left iris seems to be abnormal. With sluggish pupils and unknown details of respiratory arrest/PEA cardiac arrest, consult neurology-continuous EEG ongoing
Acute respiratory failure secondary to oral secretion issues-currently intubated for airway protection and secretion management.� Continue with vent support per pulmonary.
Hyponatremia-nephrology following. Improving
History of CVA with residual left-sided weakness-patient on dual antiplatelet agents.� Hold Plavix.� Continue aspirin.
Hypertension-hold home medication and follow blood pressure which has been on the lower side.
Full code
Discussed with EMPLOYMENT LAW SPECIALIST
Total Critical Care Time__32___ minutes. I was immediately available to the patient and staff. I personally examined, reviewed labs, diagnostic images/reports, interpretations, treatment plans, discussed patient care with other providers and
family or caregivers (if patient is unable to make decisions), entered orders as appropriate and documented the medical record.
Anticipated Discharge: > 48 hours
Subjective/Interval History
-
Date of Service: April 23, 2023
Patient still sedated and intubated.
Requiring pressors.
Cooling protocol over, getting rewarmed and attained normal body temperature
Objective Data
-
Labs:
Laboratory Results
04/22/23 04/23/23 04/23/23
20:50 00:21 04:29
WBC 18.6 H 17.5 H 17.6 H
Hgb 10.0 L 9.6 L 9.1 L
Hct 26.7 L 25.7 L 25.2 L
Plt Count 184 194 169
PT 15.0 H
INR 1.15
APTT 41.8 H
HCO3 20.3 L 21.2
Sodium 131 L 133 L 132 L
Potassium 3.4 L 3.6 3.8
Chloride 101 103 101
Carbon Dioxide 19 L 18 L 20 L
BUN 12 14 14
Creatinine 0.8 0.7 0.9
Glucose 271 H 244 H 172 H
Calcium 7.7 L 7.8 L 7.7 L
Total Bilirubin 0.6 0.4 0.4
AST 57 60 H 55
ALT 37 34 34
Alkaline Phosphatase 129 H 110 112
04/23/23 04/23/23 04/23/23
07:48 12:00 16:00
WBC Pending Pending Pending
Hgb Pending Pending Pending
Hct Pending Pending Pending
Plt Count Pending Pending Pending
PT
INR
APTT
HCO3
Sodium Pending Pending Pending
Potassium Pending Pending Pending
Chloride Pending Pending Pending
Carbon Dioxide Pending Pending Pending
BUN Pending Pending Pending
Creatinine Pending Pending Pending
Glucose Pending Pending Pending
Calcium Pending Pending Pending
Total Bilirubin Pending Pending Pending
AST Pending Pending Pending
ALT Pending Pending Pending
Alkaline Phosphatase Pending Pending Pending
04/23/23
20:00
WBC Pending
Hgb Pending
Hct Pending
Plt Count Pending
PT
INR
APTT
HCO3
Sodium Pending
Potassium Pending
Chloride Pending
Carbon Dioxide Pending
BUN Pending
Creatinine Pending
Glucose Pending
Calcium Pending
Total Bilirubin Pending
AST Pending
ALT Pending
Alkaline Phosphatase Pending
Vital Signs:
Vital Signs
Temp Pulse Resp BP Pulse Ox
97.6 F 59 16 146/72 100
04/23/23 07:00 04/23/23 06:00 04/23/23 06:00 04/22/23 12:18 04/23/23 07:39
I&O
04/22/23 04/23/23 04/24/23
06:59 06:59 06:59
Intake Total 2767.9 / 2885.4 4644.7 / 4644.7
Output Total 1300 / 1475 2535 / 2535
Balance 1467.9 / 1410.4 2109.7 / 2109.7
Review of Systems
-
Unable to obtain full review of systems at this time due to: Patient Intubation
Physical Exam
-
HEENT: Other (Oral suction catheter with bloody secretions. ET tube without any bloody secretions.)
Respiratory: Clear to Auscultation (Anterior)
Cardiac: Regular Rhythm and S1/S2
GI: Soft
Neuro: Sedated
Psych: Calm
Data Reviewed
-
Labs: Labs Reviewed by me
[2023-04-23] MEDS: NSS (PRESERVATIVE FREE) 10 ML IV (07:56)
[2023-04-23] MEDS: PROTONIX IV 40 MG IV (07:56)
[2023-04-23] MEDS: REFRESH CELLUVISC GEL 1 DROPS OPHTH ×2 (07:56→20:11)
[2023-04-23 08:08] LABS: Hematocrit 24.8 % (39.0-52.0); Hemoglobin 9.1 g/dL (13.0-18.0); Mean Corp Hgb Conc. 36.7 g/dL (33.0-37.0); Mean Corpuscular Volume 87.3 fL (80.0-94.0); Mean Platelet Volume 12.4 fL (7.4-10.4); Platelet Count 172 10^3/uL (130-400); Red Blood Cell Count 2.84 10^6/uL (4.70-6.10); Red Cell Dist. Width 14.2 % (11.5-14.5); White Blood Cell Count 17.1 10^3/uL (4.8-10.8)
[2023-04-23] MEDS: ASPIR LOW (ENTERIC COATED) 81 MG PO (08:13)
[2023-04-23 08:17] LABS: Lactic Acid 2.4 mmol/L (0.7-2.0)
[2023-04-23 08:27] LABS: ALT (SGPT) 33 U/L (0-50); AST (SGOT) 55 U/L (17-59); Albumin 2.2 g/dl (3.5-5.0); Alkaline Phosphatase 112 U/L (38-126); Blood Urea Nitrogen 14 mg/dl (9-20); Calcium 7.3 mg/dl (8.4-10.2); Carbon Dioxide 23 mmol/L (22-30); Chloride 103 mmol/L (98-107); Estimated Creatinine Clearance 68 ml/min; Glucose 149 mg/dl (70-99); Magnesium 1.9 mg/dl (1.6-2.3); Phosphorus 2.9 mg/dl (2.5-4.5); Sodium 129 mmol/L (135-145); Total Bilirubin 0.4 mg/dl (0.2-1.3); Total Protein 4.6 g/dl (6.3-8.2); eGFR > 60.00
--- NOTE | 2023-04-23 08:31 | W.PN.NEPH.PH ---
Today's Communication / Plan
-
maintain MAP ~65
change IVFs to isotonic
Assessment/Plan
-
Impression:
-hyponatremia
-VDRF
-s/p PEA arrest
-HTN, recent hypotension
-lung nodule RLL
-elevated LFTs
-sinus infection/UTI
-epistaxis
Plan
-serum 129
-non oliguric ~ 2liters
-critically ill in ICU on vent an pressor support, notably bradycardic
-checked Urine studies; urine sodium 95, urine osmolarity 486, proBNP less than 400: Appears to be consistent with hypovolemia
-Abx per primary team
-change IVF sto isotonic
-keep MAP > 65, currently hemodynamically unstable on dual pressors (epinephrine and norepinephrine)
-active bleeding from NGT tube noted
-Previously d/w family
-critical care time 31 minutes, patient critically ill on ventilator and with dopamine support for hemodynamic instability and bradycardia
-
-
Date of Service: April 23, 2023
CC / HPI / ROS
-
Chief Complaint:
Hyponatremia
History of Present Illness:
Serum sodium was up to 129
Hemodynamically labile and with bradycardia on dual pressor support
NG tube with active hemorrhage
Intubated
Review of Systems:
Epistaxis ongoing
Nonoliguric
Mendez
Labs
-
Labs:
eGFR > 60.00 04/23/23 07:48
Aam-A-Okubaeaxkjg Pept 376 pg/ml 04/21/23 10:49
Physical Exam
-
Vital Signs:
Vital Signs
Temp Pulse Resp BP Pulse Ox
97.5 F 59 16 146/72 100
04/23/23 08:00 04/23/23 06:00 04/23/23 06:00 04/22/23 12:18 04/23/23 08:09
Cardiovascular:: Regular rate and rhythm (ray)
Respiratory:: Bilateral: Coarse
Lung Excursion:: Normal
Abdomen:: Nontender and Soft
Extremity Edema:: +1: Bilateral:
Mendez Catheter: Yes
Other Findings::
Gen: intubated and sedate
--- NOTE | 2023-04-23 09:03 | EEGC.RPT ---
Continuous EEG Report
Recording
Start Date of Data Reviewed: 04/22/23
Start Time of Data Reviewed: 09:40
End Date of Data Reviewed: 04/23/23
End Time of Data Reviewed: 09:00
Type of EEG: Continuous
Done with Video Recording: Yes
Study Sequence: Initiation of Study
Electrocardiogram: Unremarkable
Report
24 HOUR EEG REPORT
EEG INTERPRETATION:
Severely abnormal study for age based on electrographic absence of cortical activity demonstrated bilaterally for the entirety of the study.
CLINICAL CORRELATION:
This study failed to demonstrate cortical activity. No epileptiform features were demonstrated.
Clinical correlation is advised.
METHODS:
A 21-channel digital electroencephalogram (EEG) was performed at the bedside. The 10/20 international system of electrode placement was used with ECG and lateral/vertical eye movements recorded. Video was recorded. [employer] system quantitative EEG
analysis was performed.
IMPRESSION(S):
Quality of study
Good with artifact noted while manipulated by external forces
Background
Absent background
Sleep
Absent
Hyperventilation
Not performed
Photic Stimulation
Not performed
ECG
Normal rhythm
Abnormal Activity
None
[2023-04-23] MEDS: NSS 1000 IV ×2 (09:04→21:45)
[2023-04-23] MEDS: ADRENALIN 250 IV (09:39)
--- NOTE | 2023-04-23 09:50 | PTCARENOTE ---
Rec'd pt at 0700. Pt had reached normothermic phase of TTM at approx 0555 this am. Pt sedate on vent on prop/fent gtts. Monitor SBR/SR 50-60's. SBP 80-100's via right radial a-line. Levophed and Epi gtts to keep MAP >65. Lungs sct coarse
posteriorly, pox 100% on 40%fio2. +BS, abd soft/nt. NGT to LIWS, brown/maroon drainage. Mendez with small amt yellow urine, aware of decreased output. Pt turned and repositioned. ETT sanford changed d/t soilage. ~0940-Propofol and Fentanyl gtts
turned off.
--- NOTE | 2023-04-23 10:33 | W.PN.CD ---
Today's Communication / Plan
-
Continue to monitor rates now with sinus bradycardia with heart rate of 50 and some competing junctional rhythm as well.
Continue to monitor rates as patient rewarms
Patient remains on pressors.
Mental status being reassessed as patient rewarmed
Impression / Plan
-
.
Arrest. Suspected respiratory arrest reported PEA arrest that responded to epinephrine and intubation. Information obtained in discussion with Dr. Dwyer. No shock or defibrillation reported.
-TTM rewarming initiated overnight 04/22/2023 - 04/23/2023
-Continue supportive treatment
-Wean pressors as tolerated
-Echocardiogram-normal left ventricular function
-Troponins unremarkable
.
Bradycardia. Patient with sinus bradycardia in the 30s.
-Now with sinus bradycardia with a heart rate of 50. Some intermittent competing junctional rhythm.
-Patient had increased bradycardia with cooling. Continue to monitor rates as patient rewarmed.
-Patient remains on pressors including epi at 3
Mental status. Prior history of CVA. Patient now postarrest.
-Reassessment of mental status after rewarming.
-EEG ordered for today
.
VDRF.
-Reported difficult reintubation in ER.
-Management directed by pulmonary/critical care
-COVID-negative
-Left upper lobe infiltrate reported by pulmonary. Patient reportedly coughing prior to presentation. Antibiotics as directed by pulmonary
Anemia.
-Downward trend now 9.1 continue to monitor. Treatment directed by hospitalist and ambulance officer
Physical Exam
Vital Signs/Labs
Vital Signs
Temp Pulse Resp BP Pulse Ox
97.6 F 59 14 146/72 100
04/23/23 10:00 04/23/23 09:30 04/23/23 09:30 04/22/23 12:18 04/23/23 09:30
04/22/23 04/23/23 04/24/23
06:59 06:59 06:59
Actual Weight 65.9 kg 68.5 kg
PT 15.0 Sec (11.4-14.6) H 04/23/23 04:29
INR 1.15 04/23/23 04:29
APTT 41.8 Sec (23.4-35.0) H 04/23/23 04:29
Magnesium 1.9 mg/dl (1.6-2.3) 04/23/23 07:48
Triglycerides 105 mg/dl (10-149) 04/21/23 20:08
04/21/23
10:49
Syt-Q-Kscgbzaprod Pept 376
LAB Results
04/21/23 04/21/23 04/22/23
10:49 20:08 02:14
Troponin I < 0.012 0.020 < 0.012 D
04/22/23
08:56
Troponin I 0.014
Physical Exam
Constitutional: No acute distress
Cardiovascular: Rhythm & rate is regular
Respiratory: Other (Vented breath sounds clear anteriorly without wheezes)
GI: Soft
Neuro/Psych: Other (Nonresponsive. Patient sedated)
Data Reviewed
-
Date of Service: April 23, 2023
Medical Decision Making: Reviewed Test Results
Medical Tests (PFT, Pathology etc): Report Reviewed by me
Labs: Labs Reviewed by me
Critical Care Time (in minutes): 35
--- NOTE | 2023-04-23 10:43 | W.PN.ID1 ---
Date of Service
Date of Service: April 23, 2023
Today's Communication
Unasyn for possible aspiration PNA.
Assessment / Plan
# s/p outpatient respiratory/PEA arrest
- most likely due to choking on significant epistaxis
-CXR faint opacity RUL zone
- Sputum cx pending
- Unasyn to cover aspiriation
# SIRS from respiratory/cardiac arrest
Leukocytosis/shock s/p hypothermia -> all due to cardiac arrest
- blood cx's neg to date
-Ucx negative
- Supportive care
# Recent sinusitis on abx x 10d
CT without sinusitis
No need to treat with abx
#Additional Past Medical History:
CVA on Plavix
Hypertension
Dyslipidemia
lung nodule
Chief Complaint
-: Other (Shock)
Subjective / Review of Systems
Sedated
Vital Signs / Physical Exam
Vital Signs
Vital Signs
Temp Pulse Resp BP Pulse Ox
97.6 F 59 14 146/72 100
04/23/23 10:00 04/23/23 09:30 04/23/23 09:30 04/22/23 12:18 04/23/23 09:30
Physical Exam
Constitutional: Acutely Ill
Head: Other (nares with dried blood on gauze)
Pulmonary: Clear
Gastrointestinal: Soft, Non Tender and Non Distended
Genito-Urinary: Mendez and Clear Urine
Extremities: Negative Edema
Objective Data
Lab Data
PT 15.0 Sec (11.4-14.6) H 04/23/23 04:29
INR 1.15 04/23/23 04:29
APTT 41.8 Sec (23.4-35.0) H 04/23/23 04:29
Estimated Creat Clear 68 ml/min 04/23/23 07:48
Lactic Acid 2.4 mmol/L (0.7-2.0) H 04/23/23 07:48
Total Bilirubin 0.4 mg/dl (0.2-1.3) 04/23/23 07:48
AST 55 U/L (17-59) 04/23/23 07:48
ALT 33 U/L (0-50) 04/23/23 07:48
Alkaline Phosphatase 112 U/L (38-126) 04/23/23 07:48
Most recent labs reviewed.
Micro Results:
04/23/23 09:28 Respiratory Culture - Pending
Tracheal Aspirate Gram Stain - Pending
04/21/23 10:52 Urine Culture - Final
Urine No Significant Growth
04/21/23 10:52 Blood Culture - Preliminary
Blood/Venous No Growth in 24 hours- Final report to follow
04/21/23 10:49 Blood Culture - Preliminary
Blood/Venous No Growth in 24 hours- Final report to follow
04/21/23 20:08 Nasal Screen MRSA (PCR) - Final
Nose MRSA not detected - performed by PCR methodology.
04/21/23 11:18 Influenza Types A & B (ARACELIS) - Final
Nasal Swab Negative for Influenza A & B, NAAT
Negative results must be combined with clinical observations
and patient history.
Nucleic Acid Amplification test (NAAT)performed on the
[employer] platform.
04/21/23 CXR: The 2.9 cm pulmonary mass in the superior segment of the right lower lobe is not significantly changed when compared with the 04/07/2022 examination.
The lungs are otherwise clear
04/21/[address]: There are no acute intracranial abnormalities. Old 4 mm lacunar infarct in the body of the caudate on the right
04/21/[address]: �Post placement of nasogastric tube and endotracheal tube, expected appearance.
2. � Partial opacification of ethmoid air cells and near complete opacification of the nasal cavity as above. Area of opacification with some increased attenuation suggesting possible blood products. Source of hemorrhage is indeterminate on this
examination.
3. � No acute facial bone fractures.
4. 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
5. � Abnormal asymmetric sphenoid bone on the left as detailed above with thinning and abnormal lucency. Differential considerations include sphenoid dysplasia and meningocele. Given sclerotic margins, metastatic disease is considered unlikely.
Could be further evaluated with follow-up MRI as warranted.
6. 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
--- NOTE | 2023-04-23 10:53 | W.PN.NEURO.1 ---
Today's Communication / Plan
-
Continue continuous EEG monitoring
Discontinue sedative agents to determine patient's brain function now that targeted temperature management has been completed
Obtain brain imaging approximately 72 hours after the cardiac arrest after rewarmed, ideally obtain brain MRI without contrast although CT head noncontrast would be acceptable if there are concerns regarding patient stability for transportation to
MRI
Continue aspirin given the history of previous ischemic stroke
Neuro Assessment/Plan
Assessment
Neuro Imaging: CT head with preserved gracia white matter differentiation, no edema see, chronic right caudate nucleus lacunar infarction
Moderate atrophy which is mildly out of proportion to patient's age
White matter microangiopathy
No acute infarct, hemorrhage, or mass
Continuous EEG monitoring suggests near absence of electrical activity while on both propofol and fentanyl
Impressions
1. Cardiac arrest, undergoing targeted temperature management and hypotheremia given unresponsive following the arrest, concern for anoxic brain injury, prognosis gaurded but not too early to give definite prognosis until 72 hours after
discontinuance of TTM
2. History previous right sided ischemic stroke with subsequent left sided weakness and spasticity
3. Hypertension
Plan
Recommendations:
Continue continuous EEG monitoring
Discontinue sedative agents to determine patient's brain function now that targeted temperature management has been completed
Obtain brain imaging approximately 72 hours after the cardiac arrest after rewarmed, ideally obtain brain MRI without contrast although CT head noncontrast would be acceptable if there are concerns regarding patient stability for transportation to
MRI
Continue aspirin given the history of previous ischemic stroke
Will follow.
Subjective/Objective
Subjective Data
Date of Service: April 23, 2023
Patient unable to write his own medical history
Objective Data
Vital Signs
Temp Pulse Resp BP Pulse Ox
36.4 C 59 14 146/72 100
04/23/23 10:00 04/23/23 09:30 04/23/23 09:30 04/22/23 12:18 04/23/23 09:30
PT 15.0 Sec (11.4-14.6) H 04/23/23 04:29
INR 1.15 04/23/23 04:29
APTT 41.8 Sec (23.4-35.0) H 04/23/23 04:29
Sodium 129 mmol/L (135-145) L 04/23/23 07:48
Potassium 4.0 mmol/L (3.5-5.1) 04/23/23 07:48
BUN 14 mg/dl (9-20) 04/23/23 07:48
Glucose 149 mg/dl (70-99) H 04/23/23 07:48
Calcium 7.3 mg/dl (8.4-10.2) L 04/23/23 07:48
Phosphorus 2.9 mg/dl (2.5-4.5) 04/23/23 07:48
Ljx-R-Doguxlfkkvy Pept 376 pg/ml 04/21/23 10:49
Ur Buprenorphine Negative (Negative) 04/21/23 10:52
Patient Allergies
No Known Allergies Allergy (Verified 04/21/23 10:41)
Review of Systems
-
Unable to obtain full review of systems at this time due to: Lethargy and Aphasia
History Source: Patient
All other systems: Reviewed and negative
Physical Exam
-
General: No Apparent Distress, Intubated and Appears Stated Age
Eyes: Round OU, [place] Conjunctivae and No Ptosis
HEENT: Anicteric and Moist Mucous Membranes
Neck: Full Range of Motion
Respiratory: No Dyspnea
Cardiac: No JVD
GI: Non-distended
Skin: Unremarkable
Extremities: No Clubbing, No Cyanosis and No Edema
Psych: Unable to Assess
Extended Neurological Exam
Mood & Affect: Unable to Assess
Attention Span & Concentration: Unresponsive to Verbal Stimuli; Negative Unresponsive to Physical Stimuli (left foot minimal movement after painful stim momentarily)
Memory: Unable to Assess
Tremor: Hand Tremor Absent and Head Tremor Absent
Involuntary Movement: None
Speech: Mute
Cranial Nerve II: Left Eye: Pupillary Size Unremarkable, Unable to Assess Visual Allen and Smaller than Contralateral
Cranial Nerve II: Right Eye: Pupillary Size Unremarkable and Unable to Assess Visual Allen
Cranial Nerves III, IV, : Extraocular Movement: Negative Absent Doll's Eyes
Cranial Nerve V: Facial Sensation: Unable to Assess
Cranial Nerve VII: Facial Symmetry: Normal Facial Symmetry
Cranial Nerve VIII: Hearing: Unable to Assess
Cranial Nerves IX, X: Palate Movement: Unable to Assess
Cranial Nerve XI: Shoulder Shrug: Unable to Assess
Cranial Nerve XII: Tongue Protusion: Unable to Assess
Muscle Strength, Overall: Negative Spontaneously Moves
Muscle Bulk & Tone: Bulk Unremarkable and Tone Unremarkable
Pronator Drift: Unable to Assess
Cold Sensation: Unable to Assess
Vibration Sensation: Unable to Assess
Coordination: Unable to Assess
Gait & Station: Unable to Assess
Modified [place] Score (MRS)
-
MRS Score:
Data Reviewed
-
CT Head: Report Reviewed
EEG: Ordered and Report Reviewed
Labs: Report Reviewed
Reviewed with: Physician and Nurse
Old Records: Summarized
[2023-04-23] MEDS: UNASYN IV ×2 (11:34→17:09)
[2023-04-23 11:57] LABS: Lactic Acid 1.4 mmol/L (0.7-2.0)
[2023-04-23 12:05] LABS: Hematocrit 23.9 % (39.0-52.0); Hemoglobin 8.8 g/dL (13.0-18.0); Mean Corp Hgb Conc. 36.8 g/dL (33.0-37.0); Mean Corpuscular Hgb 31.8 pg (27.0-31.0); Mean Corpuscular Volume 86.3 fL (80.0-94.0); Mean Platelet Volume 12.5 fL (7.4-10.4); Platelet Count 170 10^3/uL (130-400); Red Blood Cell Count 2.77 10^6/uL (4.70-6.10); Red Cell Dist. Width 14.6 % (11.5-14.5); White Blood Cell Count 15.8 10^3/uL (4.8-10.8)
[2023-04-23 12:06] LABS: ALT (SGPT) 33 U/L (0-50); AST (SGOT) 56 U/L (17-59); Albumin 2.2 g/dl (3.5-5.0); Alkaline Phosphatase 110 U/L (38-126); Blood Urea Nitrogen 16 mg/dl (9-20); Calcium 7.2 mg/dl (8.4-10.2); Carbon Dioxide 24 mmol/L (22-30); Chloride 103 mmol/L (98-107); Estimated Creatinine Clearance 61 ml/min; Glucose 131 mg/dl (70-99); Magnesium 1.9 mg/dl (1.6-2.3); Phosphorus 3.4 mg/dl (2.5-4.5); Potassium 4.1 mmol/L (3.5-5.1); Sodium 128 mmol/L (135-145); Total Bilirubin 0.5 mg/dl (0.2-1.3); Total Protein 4.5 g/dl (6.3-8.2); eGFR > 60.00
--- NOTE | 2023-04-23 12:12 | PTCARENOTE ---
No changes in assessment, remains off sedation. No purposeful movements noted.
--- NOTE | 2023-04-23 16:45 | PTCARENOTE ---
No changes in assessment, sedation remains off. Pt with no purposeful movements noted. +gag, no corneal reflexes. Pt's and niece in to visit, updated on pt's current condition and potential outcomes. Emotional support given, family verbalizes
understanding.
[2023-04-23 16:48] LABS: Hematocrit 24.7 % (39.0-52.0); Mean Corp Hgb Conc. 36.4 g/dL (33.0-37.0); Mean Corpuscular Hgb 31.7 pg (27.0-31.0); Mean Platelet Volume 11.7 fL (7.4-10.4); Platelet Count 167 10^3/uL (130-400); Red Blood Cell Count 2.84 10^6/uL (4.70-6.10); Red Cell Dist. Width 14.7 % (11.5-14.5); White Blood Cell Count 17.8 10^3/uL (4.8-10.8)
[2023-04-23 17:00] LABS: Lactic Acid 1.2 mmol/L (0.7-2.0)
[2023-04-23 17:03] LABS: ALT (SGPT) 34 U/L (0-50); AST (SGOT) 62 U/L (17-59); Albumin 2.2 g/dl (3.5-5.0); Alkaline Phosphatase 118 U/L (38-126); Blood Urea Nitrogen 15 mg/dl (9-20); Calcium 7.2 mg/dl (8.4-10.2); Carbon Dioxide 24 mmol/L (22-30); Chloride 101 mmol/L (98-107); Estimated Creatinine Clearance 68 ml/min; Glucose 137 mg/dl (70-99); Phosphorus 3.8 mg/dl (2.5-4.5); Potassium 4.3 mmol/L (3.5-5.1); Sodium 126 mmol/L (135-145); Total Bilirubin 0.5 mg/dl (0.2-1.3); Total Protein 4.6 g/dl (6.3-8.2); eGFR > 60.00
[2023-04-23 18:28] VITALS: PULSE 45
--- NOTE | 2023-04-23 20:00 | PTCARENOTE ---
Patient received in bed on TTM, normothermia phase. patient unresponsive, all sedation remains off. Sinus Bradycardia on monitor, blood pressure as documented. Weak but palpable pulses throughout. #7 ETT at 21 cm at the left lip, tolerating vent
settings of A/C 14 TV 400 FIO2 40% Peep 5, lungs coarse bilaterally, pulse ox 100%. Suctioned for large amount of thick bloody oral secretions. NG to LIS in left nare, abdomen soft with hypoactive bowel sounds. thermister good draining yellow
urine. Right radial Gore transduced and zeroed. RDL PICC with IVF, Epi and Levo gtts as documented.
[2023-04-23 20:15] LABS: Hematocrit 22.1 % (39.0-52.0); Hemoglobin 8.2 g/dL (13.0-18.0); Mean Corp Hgb Conc. 37.1 g/dL (33.0-37.0); Mean Corpuscular Hgb 32.3 pg (27.0-31.0); Mean Platelet Volume 11.9 fL (7.4-10.4); Platelet Count 141 10^3/uL (130-400); Red Blood Cell Count 2.54 10^6/uL (4.70-6.10); Red Cell Dist. Width 14.8 % (11.5-14.5); White Blood Cell Count 16.4 10^3/uL (4.8-10.8)
[2023-04-23 20:18] VITALS: BP_SYST 200
[2023-04-23 20:19] VITALS: BP_SYST 200
[2023-04-23 20:45] LABS: Lactic Acid 1.2 mmol/L (0.7-2.0)
[2023-04-23 20:52] LABS: ALT (SGPT) 32 U/L (0-50); AST (SGOT) 64 U/L (17-59); Albumin 2.1 g/dl (3.5-5.0); Alkaline Phosphatase 114 U/L (38-126); Blood Urea Nitrogen 16 mg/dl (9-20); Carbon Dioxide 23 mmol/L (22-30); Chloride 103 mmol/L (98-107); Estimated Creatinine Clearance 68 ml/min; Glucose 126 mg/dl (70-99); Magnesium 1.9 mg/dl (1.6-2.3); Phosphorus 3.8 mg/dl (2.5-4.5); Potassium 4.2 mmol/L (3.5-5.1); Sodium 127 mmol/L (135-145); Total Bilirubin 0.5 mg/dl (0.2-1.3); Total Protein 4.4 g/dl (6.3-8.2); eGFR > 60.00
[2023-04-23 21:01] VITALS: BP 128/74
--- NOTE | 2023-04-23 21:21 | W.PN.UPDATE ---
Update Note
Progress Note Update
Continuous EEG Ongoing Review:
Near cortical silence becoming very amplitude bursts of rythmic activity lasting up to 70 seconds.
Continue to follow.
Formal report to follow.
[2023-04-23 22:09] VITALS: BP 174/83
--- NOTE | 2023-04-23 22:15 | PTCARENOTE ---
Patients vent alarming, patient found with bloody vomit and a large clot hanging from right nare. Notified SURGICAL CORSETIER, orders received, labs sent. CHG bath given, linens changed. Turned and repositioned. No other changes in assessment
[2023-04-23] MEDS: TIGAN 200 MG IM (22:17)
[2023-04-23 22:35] LABS: Hematocrit 22.8 % (39.0-52.0); Hemoglobin 8.3 g/dL (13.0-18.0)
[2023-04-23 22:44] LABS: INR 1.09; PT 14.3 Sec (11.4-14.6)
[2023-04-23 22:45] LABS: APTT 39.6 Sec (23.4-35.0)
[2023-04-23 22:49] LABS: Blood Urea Nitrogen 16 mg/dl (9-20); Carbon Dioxide 20 mmol/L (22-30); Chloride 103 mmol/L (98-107); Estimated Creatinine Clearance 76 ml/min; Glucose 127 mg/dl (70-99); Potassium 4.3 mmol/L (3.5-5.1); Sodium 127 mmol/L (135-145); eGFR > 60.00
[2023-04-24] MEDS: UNASYN IV ×4 (00:29→17:55)
[2023-04-24] MEDS: TYLENOL ORAL SOLUTION 650 MG TUBE ×5 (00:29→23:51)
[2023-04-24] MEDS: BUSPAR 30 MG TUBE ×4 (00:29→23:51)
[2023-04-24 01:00] VITALS: BP_SYST 190
[2023-04-24 01:09] LABS: Mean Corp Hgb Conc. 35.6 g/dL (33.0-37.0); Mean Corpuscular Hgb 32.2 pg (27.0-31.0); Mean Corpuscular Volume 90.4 fL (80.0-94.0); Mean Platelet Volume 12.8 fL (7.4-10.4); Platelet Count 147 10^3/uL (130-400); Red Blood Cell Count 2.61 10^6/uL (4.70-6.10); Red Cell Dist. Width 14.6 % (11.5-14.5); White Blood Cell Count 18.2 10^3/uL (4.8-10.8)
[2023-04-24 01:20] LABS: ALT (SGPT) 34 U/L (0-50); AST (SGOT) 76 U/L (17-59); Alkaline Phosphatase 112 U/L (38-126); Magnesium 1.9 mg/dl (1.6-2.3); Phosphorus 3.8 mg/dl (2.5-4.5); Total Bilirubin 0.6 mg/dl (0.2-1.3); Total Protein 4.4 g/dl (6.3-8.2)
[2023-04-24 04:14] LABS: Hematocrit 22.9 % (39.0-52.0); Hemoglobin 8.3 g/dL (13.0-18.0); Mean Corp Hgb Conc. 36.2 g/dL (33.0-37.0); Mean Corpuscular Hgb 31.9 pg (27.0-31.0); Mean Corpuscular Volume 88.1 fL (80.0-94.0); Mean Platelet Volume 12.4 fL (7.4-10.4); Platelet Count 147 10^3/uL (130-400); Red Cell Dist. Width 14.6 % (11.5-14.5); White Blood Cell Count 18.1 10^3/uL (4.8-10.8)
[2023-04-24 04:20] LABS: INR 1.12; PT 14.7 Sec (11.4-14.6)
[2023-04-24 04:21] LABS: APTT 38.7 Sec (23.4-35.0)
[2023-04-24 04:27] LABS: ALT (SGPT) 37 U/L (0-50); AST (SGOT) 91 U/L (17-59); Albumin 2.1 g/dl (3.5-5.0); Alkaline Phosphatase 125 U/L (38-126); Blood Urea Nitrogen 16 mg/dl (9-20); Calcium 7.5 mg/dl (8.4-10.2); Carbon Dioxide 22 mmol/L (22-30); Chloride 102 mmol/L (98-107); Estimated Creatinine Clearance 76 ml/min; Glucose 103 mg/dl (70-99); Potassium 4.1 mmol/L (3.5-5.1); Sodium 130 mmol/L (135-145); Total Bilirubin 0.5 mg/dl (0.2-1.3); Total Protein 4.5 g/dl (6.3-8.2); Triglycerides 62 mg/dl (10-149); eGFR > 60.00
[2023-04-24 04:30] LABS: Prealbumin (Transthyretin) 12.2 mg/dl (17.6-36.0)
[2023-04-24 04:38] VITALS: BP_SYST 190
--- NOTE | 2023-04-24 04:47 | PTCARENOTE ---
Patient reassessed, blood pressure continues to be elevated, epi gtt titrated to off. Heart rate remains in the 40s. Turned and repositioned.
--- NOTE | 2023-04-24 05:35 | PTCARENOTE ---
patient with bradycardia, elevated blood pressure with high MAPS, pupils now fixed and dilated. Increase in urine output, notified ROGELIO
[2023-04-24 06:00] VITALS: BMI 27.3
[2023-04-24 06:28] LABS: Osmolality Urine 93 mOsm/kg (300-900)
--- NOTE | 2023-04-24 06:36 | PTCARENOTE ---
EEG placed on hold, patient transported to head CT with PHARMACY DELIVERY DRIVER and respiratory therapist
[2023-04-24 06:42] LABS: Urine Sodium 18 mmol/L (30-90)
[2023-04-24] MEDS: PROTONIX IV 40 MG IV (07:30)
[2023-04-24] MEDS: ASPIR LOW (ENTERIC COATED) 81 MG PO (07:30)
[2023-04-24] MEDS: NSS (PRESERVATIVE FREE) 10 ML IV (07:30)
[2023-04-24] MEDS: REFRESH CELLUVISC GEL 1 DROPS OPHTH ×2 (07:30→19:49)
--- NOTE | 2023-04-24 07:35 | W.PN.UPDATE ---
Update Note
Progress Note Update
6853- Patient had acute neurology change, pupils 5/5 fixed with no reflex to light, patient not reflexive to noxious stimuli. BP noted to be acutely hypertensive, vasopressors have been off, SBP now >180-200. Also large urinary output noted,
dumped 200cc then approximately 800cc clear pale yellow urine. Dr. Wasserman, neurologist updated of clinical findings, agreed with STAT CTscan and urine osmolality. Likely worsening anoxic injury/brain herniation. patient transported to CTscan.
--- NOTE | 2023-04-24 08:10 | PTCARENOTE ---
Rec'd pt at 0700. Pt just returned from CT scan with nightshift RN. TTM machine restarted in normothermic phase. Pt unresponsive, pupils 5mm/fixed and dilated. No gag/corneal reflexes. Monitor SBR 30-40's. SBP 140-160's via right radial a-line.
Lungs sct coarse, pox 99% on 40% fio2. +BS, abd soft/nt. NGT to LIWS, brown/maroon drainage. Bloody drainage from nose, CHG bath completed and linens changed. Mendez draining large amts clear pale yellow urine.
--- NOTE | 2023-04-24 08:16 | W.PN.HOSP.TC ---
Today's Communication/Plan
-
Continue with anoxic brain injury evaluation
Continue with ventilatory support and antibiotics.
Assessment / Plan
Assessment / Plan
Bloody oral secretion causing gagging until respiratory arrest requiring intubation-unclear if blood has ENT source,hemoptysis or hematemesis.� Patient currently has some laceration on the left side of the tongue unclear if it is acute trauma and
also has nasal bloody secretions.� denies any falls.� No obvious external trauma evident.�
-No bloody secretions from ET tube/NG.
-No obvious external GI blood loss
-CT face with contrast shows large amount of blood in the nasal cavities and maxillary sinus was clear. Ethmoid sinus partially obstructed. Sphenoid sinus abnormality noted. Unclear of the nasal bleeding he is in town from [place]. There
is tongue laceration noted. Patient has been troubled with sinusitis for couple of weeks. ENT opinion noted. Observe for now
-H&H dropped noted but the seems to be stable compared to recent baseline. Continue to follow H&H.
Sepsis with shock suspected septic shock-elevated white count and hypothermia noted.� Echo showed normal EF. Unclear if it related to oropharyngeal infection or a UTI.� He has a cloudy urine.� She also has abnormal right upper lobe chest x-ray. Is
known to have recurrent UTIs.� Continue with ceftriaxone per ID -currently off of vasopressors.
Out of hospital PEA:-Patient apparently was in respiratory arrest and transient PEA code needing 1 cycle of epinephrine.�
Possible anoxic brain injury -patient presented asymmetric pupil-right larger than left. Left iris seems to be abnormal. With sluggish pupils and unknown details of respiratory arrest/PEA cardiac arrest, neurology following and continuous EEG
ordered. Currently his both pupils are dilated including the left foot on the right side unresponsive. CT of the head shows concerning for transfer tentorial herniation with diffuse bilateral cerebellar encephalomalacia. He also seems to have
Piotr reflex now with the elevated blood pressure and bradycardia. All concerning for anoxic brain injury. His continuous EEG leads are off-will check with neurology regarding further need of EEG or MRI of the brain.
Acute respiratory failure secondary to oral secretion issues-currently intubated for airway protection and secretion management.� Continue with vent support per pulmonary.
Hyponatremia-nephrology following. Improving
History of CVA with residual left-sided weakness-patient on dual antiplatelet agents.� Hold Plavix.� Continue aspirin.
Hypertension-hold home medication and follow blood pressure which has been on the lower side.
Full code
Discussed with INDUSTRIAL CONTROLLER
Discussed with neurology
Will touch base with the family after neurology input. Discussed with Katiana yesterday and updated the critical nature of his illness.
Total Critical Care Time__35___ minutes. I was immediately available to the patient and staff. I personally examined, reviewed labs, diagnostic images/reports, interpretations, treatment plans, discussed patient care with other providers and
family or caregivers (if patient is unable to make decisions), entered orders as appropriate and documented the medical record.
Anticipated Discharge: > 48 hours
Subjective/Interval History
-
Date of Service: April 24, 2023
Patient remains unresponsive despite being off of sedatives.
Last night he had a CT scan concerning for descending trans tentorial herniation and new diffuse bilateral cerebellar encephalomalacia concerning for anoxic injury.
Objective Data
-
Labs:
Laboratory Results
04/23/23 04/23/23 04/24/23
20:02 22:23 00:00
WBC 16.4 H 18.2 H Cancelled
Hgb 8.2 L 8.3 L Cancelled
Hct 22.1 L 22.8 L Cancelled
Plt Count 141 147 Cancelled
PT 14.3
INR 1.09
APTT 39.6 H
Sodium 127 L 127 L Cancelled
Potassium 4.2 4.3 Cancelled
Chloride 103 103 Cancelled
Carbon Dioxide 23 20 L Cancelled
BUN 16 16 Cancelled
Creatinine 0.9 0.8 Cancelled
Glucose 126 H 127 H Cancelled
Calcium 7.0 L 7.0 L Cancelled
Total Bilirubin 0.5 0.6 Cancelled
AST 64 H 76 H Cancelled
ALT 32 34 Cancelled
Alkaline Phosphatase 114 112 Cancelled
04/24/23 04/24/23
03:49 06:00
WBC 18.1 H Cancelled
Hgb 8.3 L Cancelled
Hct 22.9 L Cancelled
Plt Count 147 Cancelled
PT 14.7 H
INR 1.12
APTT 38.7 H
Sodium 130 L Cancelled
Potassium 4.1 Cancelled
Chloride 102 Cancelled
Carbon Dioxide 22 Cancelled
BUN 16 Cancelled
Creatinine 0.8 Cancelled
Glucose 103 H Cancelled
Calcium 7.5 L Cancelled
Total Bilirubin 0.5
AST 91 H
ALT 37
Alkaline Phosphatase 125
Vital Signs:
Vital Signs
Temp Pulse Resp BP Pulse Ox
96.5 F L 42 14 174/83 100
04/24/23 08:00 04/24/23 07:30 04/24/23 07:30 04/23/23 22:09 04/24/23 07:56
I&O
04/23/23 04/24/23 04/25/23
06:59 06:59 06:59
Intake Total 4644.7 / 4813.4 3292.4 / 3372.4 160 / 160
Output Total 2535 / 2545 1443 / 1943 1100 / 1100
Balance 2109.7 / 2268.4 1849.4 / 1429.4 -940 / -940
Review of Systems
-
Unable to obtain full review of systems at this time due to: Patient Non-verbal
Physical Exam
-
General: No Apparent Distress
HEENT: Other (Dried blood at the nares; no active bleeding)
Respiratory: Clear to Auscultation (Anteriorly)
Cardiac: Regular Rhythm, S1/S2 and Bradycardic
GI: Soft
Neuro: Negative Awake or Alert
Data Reviewed
-
CT Scan: Report Reviewed by me (head)
Labs: Labs Reviewed by me
--- NOTE | 2023-04-24 08:46 | EEGC.RPT ---
Continuous EEG Report
Recording
Start Date of Data Reviewed: 04/23/23
Start Time of Data Reviewed: 08:00
End Date of Data Reviewed: 04/24/23
End Time of Data Reviewed: 06:25
Type of EEG: Continuous
Done with Video Recording: Yes
Study Sequence: Continuation of ongoing Study
Electrocardiogram: Unremarkable
Report
24 HOUR EEG REPORT
EEG INTERPRETATION:
Severely abnormal study for age based on electrographic absence of cortical activity demonstrated bilaterally for the near entirety of the study.
CLINICAL CORRELATION:
This study demonstrated an absence of cortical activity since 0240 hrs. No epileptiform features were demonstrated.
Clinical correlation is advised.
METHODS:
A 21-channel digital electroencephalogram (EEG) was performed at the bedside. The 10/20 international system of electrode placement was used with ECG and lateral/vertical eye movements recorded. Video was recorded. [employer]igo system quantitative EEG
analysis was performed.
IMPRESSION(S):
Quality of study
Good with artifact noted while manipulated by external forces
Background
Absent background
Sleep
Absent
Hyperventilation
Not performed
Photic Stimulation
Not performed
ECG
Normal rhythm
Abnormal Activity
None
--- NOTE | 2023-04-24 08:53 | W.PN.NEURO.1 ---
Today's Communication / Plan
-
May discontinue continuous EEG monitoring
Discontinued sedative agents to determine patient's brain function now that targeted temperature management has been completed
Consider apnea testing to confirm brain based on current reports
Continue aspirin given the history of previous ischemic stroke
Neuro Assessment/Plan
Assessment
Continuous EEG monitoring suggests absence of electrical activity
With the above new CT of head
Impressions
1. Cardiac arrest, completed targeted temperature management and hypothermia following unresponsiveness subsequent to the arrest, profound anoxic brain injury, prognosis now definitive for no survivability
Plan
Recommendations:
May discontinue continuous EEG monitoring
Discontinued sedative agents to determine patient's brain function now that targeted temperature management has been completed
Consider apnea testing to confirm brain based on current reports
Continue aspirin given the history of previous ischemic stroke
Will follow.
Subjective/Objective
Subjective Data
Date of Service: April 24, 2023
Patient unable to provide his own medical history.
Objective Data
Vital Signs
Temp Pulse Resp BP Pulse Ox
35.8 C L 42 14 174/83 100
04/24/23 08:00 04/24/23 07:30 04/24/23 07:30 04/23/23 22:09 04/24/23 08:00
Lab Results
04/24/23 06:00
04/24/23 06:00
PT 14.7 Sec (11.4-14.6) H 04/24/23 03:49
INR 1.12 04/24/23 03:49
APTT 38.7 Sec (23.4-35.0) H 04/24/23 03:49
Sodium Cancelled 04/24/23 06:00
Potassium Cancelled 04/24/23 06:00
BUN Cancelled 04/24/23 06:00
Glucose Cancelled 04/24/23 06:00
Calcium Cancelled 04/24/23 06:00
Phosphorus 4.0 mg/dl (2.5-4.5) 04/24/23 03:49
Eia-S-Jazeflfllsq Pept 376 pg/ml 04/21/23 10:49
Ur Buprenorphine Negative (Negative) 04/21/23 10:52
Patient Allergies
No Known Allergies Allergy (Verified 04/21/23 10:41)
Review of Systems
-
Unable to obtain full review of systems at this time due to: Coma and Aphasia
History Source: Patient
All other systems: Reviewed and negative
Physical Exam
-
General: No Apparent Distress, Intubated and Appears Stated Age
Eyes: Round OU, [place] Conjunctivae and No Ptosis
HEENT: Anicteric and Moist Mucous Membranes
Neck: Full Range of Motion
Respiratory: No Dyspnea
Cardiac: No JVD
GI: Non-distended
Skin: Unremarkable
Extremities: No Clubbing, No Cyanosis and No Edema
Psych: Unable to Assess
Extended Neurological Exam
Mood & Affect: Unable to Assess
Attention Span & Concentration: Unresponsive to Verbal Stimuli and Unresponsive to Physical Stimuli
Memory: Unable to Assess
Tremor: Hand Tremor Absent and Head Tremor Absent
Involuntary Movement: None
Speech: Mute
Cranial Nerve II: Left Eye: Pupillary Size Unremarkable, Unreactive and Unable to Assess Visual Allen; Negative Pupillary Reactivity Unremarkable
Cranial Nerve II: Right Eye: Pupillary Size Unremarkable, Unreactive and Unable to Assess Visual Allen; Negative Pupillary Reactivity Unremarkable
Cranial Nerves III, IV, : Extraocular Movement: Absent Doll's Eyes and Other (Negative cold calorics bilaterally)
Cranial Nerve V: Facial Sensation: Unable to Assess
Cranial Nerve VII: Facial Symmetry: Normal Facial Symmetry
Cranial Nerve VIII: Hearing: Unable to Assess
Cranial Nerves IX, X: Palate Movement: Unable to Assess
Cranial Nerve XI: Shoulder Shrug: Unable to Assess
Cranial Nerve XII: Tongue Protusion: Unable to Assess
Muscle Strength, Overall: Negative Spontaneously Moves
Muscle Bulk & Tone: Bulk Unremarkable and Tone Unremarkable
Pronator Drift: Unable to Assess
Deep Tendon Reflexes: Absent Throughout
Cold Sensation: Unable to Assess
Vibration Sensation: Unable to Assess
Coordination: Unable to Assess
Babinski Sign: Absent Bilaterally
Gait & Station: Unable to Assess
Modified Lumpkin Score (MRS)
-
MRS Score:
Data Reviewed
-
EEG: Report Reviewed
Labs: Report Reviewed
Reviewed with: Physician and Nurse
Old Records: Summarized
--- NOTE | 2023-04-24 09:00 | W.PN.NEPH.PH ---
Today's Communication / Plan
-
increased IVFs
Assessment/Plan
-
Impression:
-hyponatremia
-VDRF
-s/p PEA arrest/strong suspicion for anoxic brain injury
-HTN, recent hypotension
-lung nodule RLL
-elevated LFTs
-sinus infection/UTI
-epistaxis
Plan
-serum improved to 130
-now with uop of 500cc hr, profoundly dilute, consistent with central diabetes insipidus in setting of acute brain injury
-Will escalate IV fluids at this time to compensate for urinary losses
-non oliguric ~ 2.5liters
-critically ill in ICU on vent an pressor support, notably bradycardic
-Abx per primary team
-active bleeding from NGT tube noted
-Anticipate conversion to comfort care within next 24
-critical care time 31 minutes, patient critically ill on ventilator and with dopamine support for hemodynamic instability and bradycardia
-
-
Date of Service: April 24, 2023
CC / HPI / ROS
-
Chief Complaint:
Hyponatremia
History of Present Illness:
Serum sodium was up to 130
Hemodynamically labile and with bradycardia
NG tube with active hemorrhage
Intubated
Review of Systems:
Epistaxis ongoing
Nonoliguric
Mendez
Labs
-
Labs:
WBC Cancelled 04/24/23 06:00
RBC Cancelled 04/24/23 06:00
Hgb Cancelled 04/24/23 06:00
Hct Cancelled 04/24/23 06:00
Plt Count Cancelled 04/24/23 06:00
Sodium Cancelled 04/24/23 06:00
Potassium Cancelled 04/24/23 06:00
Chloride Cancelled 04/24/23 06:00
Carbon Dioxide Cancelled 04/24/23 06:00
BUN Cancelled 04/24/23 06:00
Creatinine Cancelled 04/24/23 06:00
eGFR Cancelled 04/24/23 06:00
Glucose Cancelled 04/24/23 06:00
Calcium Cancelled 04/24/23 06:00
Phosphorus 4.0 mg/dl (2.5-4.5) 04/24/23 03:49
Upc-F-Fklpbivenja Pept 376 pg/ml 04/21/23 10:49
Albumin 2.1 g/dl (3.5-5.0) L 04/24/23 03:49
Physical Exam
-
Vital Signs:
Vital Signs
Temp Pulse Resp BP Pulse Ox
96.5 F L 42 14 174/83 100
04/24/23 08:00 04/24/23 07:30 04/24/23 07:30 04/23/23 22:09 04/24/23 08:00
Cardiovascular:: Regular rate and rhythm (ray)
Respiratory:: Bilateral: Coarse
Lung Excursion:: Normal
Abdomen:: Nontender and Soft
Bowel Sounds:: Decreased
Extremity Edema:: None: Bilateral:
Mendez Catheter: Yes
Other Findings::
intubated and sedated
[2023-04-24] MEDS: NSS 1000 IV ×2 (09:19→15:20)
--- NOTE | 2023-04-24 09:45 | PTCARENOTE ---
NOEMI called and notified of pt's change in condition.
--- NOTE | 2023-04-24 11:26 | W.PN.ID1 ---
Date of Service
Date of Service: April 24, 2023
Today's Communication
Grim prognosis.
Assessment / Plan
# s/p outpatient respiratory/PEA arrest most likely due to choking on significant epistaxis
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
-CXR faint opacity RUL zone
- Sputum cx: usual repiratory yasmin
- Continue Unasyn for now to cover aspiration pending [facility] discussion
-Grim prognosis
# SIRS from respiratory/cardiac arrest
Leukocytosis/shock s/p hypothermia -> all due to cardiac arrest
- blood cx's neg
-Ucx negative
- Supportive care
# Recent sinusitis on abx x 10d
#Additional Past Medical History:
CVA on Plavix
Hypertension
Dyslipidemia
lung nodule
Chief Complaint
-: Other (Shock)
Vital Signs / Physical Exam
Vital Signs
Vital Signs
Temp Pulse Resp BP Pulse Ox
97.5 F 41 14 174/83 99
04/24/23 11:00 04/24/23 11:00 04/24/23 11:00 04/23/23 22:09 04/24/23 11:00
Physical Exam
Constitutional: Acutely Ill
Head: Other (dried blood in nares)
Cardiovascular: Other (Bradycardic)
Pulmonary: Clear (anteriorly)
Gastrointestinal: Soft, Non Tender and Non Distended
Genito-Urinary: Mendez and Clear Urine
Neurological: Other (Obtunded)
Objective Data
Lab Data
Lab Results
04/24/23 06:00
04/24/23 06:00
PT 14.7 Sec (11.4-14.6) H 04/24/23 03:49
INR 1.12 04/24/23 03:49
APTT 38.7 Sec (23.4-35.0) H 04/24/23 03:49
Estimated Creat Clear Cancelled 04/24/23 06:00
Lactic Acid Cancelled 04/24/23 04:00
Total Bilirubin 0.5 mg/dl (0.2-1.3) 04/24/23 03:49
AST 91 U/L (17-59) H 04/24/23 03:49
ALT 37 U/L (0-50) 04/24/23 03:49
Alkaline Phosphatase 125 U/L (38-126) 04/24/23 03:49
Most recent labs reviewed.
Micro Results:
04/21/23 10:49 Blood Culture - Preliminary
Blood/Venous No Growth in 72 hours- Final report to follow
04/21/23 10:52 Blood Culture - Preliminary
Blood/Venous No Growth in 72 hours- Final report to follow
04/23/23 09:28 Respiratory Culture - Preliminary
Tracheal Aspirate Usual Respiratory Yasmin
Gram Stain - Preliminary
04/21/23 10:52 Urine Culture - Final
Urine No Significant Growth
04/21/23 20:08 Nasal Screen MRSA (PCR) - Final
Nose MRSA not detected - performed by PCR methodology.
04/21/23 11:18 Influenza Types A & B (ARACELIS) - Final
Nasal Swab Negative for Influenza A & B, NAAT
Negative results must be combined with clinical observations
and patient history.
Nucleic Acid Amplification test (NAAT)performed on the
[employer] platform.
04/21/23 CXR: The 2.9 cm pulmonary mass in the superior segment of the right lower lobe is not significantly changed when compared with the 04/07/2022 examination.
The lungs are otherwise clear
04/21/[address]: There are no acute intracranial abnormalities. Old 4 mm lacunar infarct in the body of the caudate on the right
04/21/[address]: �Post placement of nasogastric tube and endotracheal tube, expected appearance.
2. � Partial opacification of ethmoid air cells and near complete opacification of the nasal cavity as above. Area of opacification with some increased attenuation suggesting possible blood products. Source of hemorrhage is indeterminate on this
examination.
3. � No acute facial bone fractures.
4. 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
5. � Abnormal asymmetric sphenoid bone on the left as detailed above with thinning and abnormal lucency. Differential considerations include sphenoid dysplasia and meningocele. Given sclerotic margins, metastatic disease is considered unlikely.
Could be further evaluated with follow-up MRI as warranted.
6. 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
04/24/23 CT head: New diffuse encephalomalacia of the cerebrum bilaterally with associated obliteration of basal cisterns and mass effect on the lateral ventricles suggesting descending transtentorial herniation. Findings likely due to diffuse anoxic
brain injury/global hypoxic event. History of recent code.
--- NOTE | 2023-04-24 12:07 | W.PN.INTV ---
Today's Communication / Plan
Recommendations
Supportive care
GOC: qualifies for comfort
Assessment
-
Assessment:
Mr Raúl Reddy is a 68/M adm 04-21. Found coughing bloody material by at 9:30 am, called 911, found in respiratory arrest, asystole/PEA, ALCS started, orally intubated, epinephrine x1. Reportedly recent sinus infection seen at , started
atb bid (apparently clarithromycin) with improvement. ETT dislodged at ER, reintubated
Impression:
Cardiac arrest at home, unknown duration, attended by EMS upon arrival 04-21
Asystole/PEA
Intubated as scene
ETT expelled at ER, reintubated
Suspected epistaxis based on facial bones CT on adm vs hemoptysis
Hypothermia 34.1 C on adm
Recent sinus infection s/p atb
Acute on chronic leukocytosis
Hyperoxia on ABG (apparently on fiO2 1.0)
Likely acute on chronic hyponatremia
Resolved mild lactic acidosis
Mild transaminitis
Normal troponin/BNP
Abnormal UA, suspected UTI
UDS negative
COVID/flu negative
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
Ischemic CVA, R sided, L sided weakness/spasticity, on plavix/ASA
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
COVID illness Mar 2022, s/p paxlovid
LUE cast
HTN
HLD
Lung lung nodule (RLL sup segment, on CT 09-05-21)
Non-smoker
Plan:
Cardiac arrest
Unclear etiology
Limited information at EMR, no EMS record in chart
D/w over phone 04-21: patient presented cardiac arrest while in ambulance at home driveway: she was told at ER that arrest 'was brief'
Bloody secretions in ETT but no evidence of pulm edema on CXR
Recent sinus infection, received cefpodoxime for 6/10 d, followed by clarithromycin for 2-3 d CORPORATE DRIVER (no QTc prolongation at ER EKG)
Intubated at scene
ETT dislodged at ER, reintubated
Continue ACV
16-450-5-0.4 (100%), persistent resp alkalosis, adjusted ACV to 14 and 400
Sedation, analgesia
Daily sedation holiday
Epistaxis
Suspected blood at ethmoid cells on CT
ENT evaluation 04-22: suspected L epistaxis which has ceased, rec observation
Noted posturing on physical exam on adm
Neurology consultation appreciated
Suspected anoxic brain injury
EEG, continuous, remains flat
Head CT 04-24: suspected transtentorial herniation
Hypothermia protocol started 04-21
Reached normotemia 04-22 at 5:55 am
Interim sinus bradycardia
Sinus pause of 5sec on 04-21
Suspected related to cooling protocol
Started dopamine gtt
Transitioned to NE
SB and interim hypotension have improved
Continue empiric atbs: vanco/zosyn. Vanco d/c'ed (MRSA negative)
Transitioned to amp/sulb 04-23 by ID
Adm CXR was suspicious for L apical infiltrate, however, CXR post PICC did not show infiltrate (just persistence of known RLL nodule)
Follow cxs:
Resp secs (negative), blood (so far negative), U (negative)
PICC placed at RUE 04-21
Metabolic acidosis and hyponatremia
Bicarb gtt required initially, transitioned to NS 04-23
Renal following
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
Prognosis unfortunately remains guarded
Full code
D/w Mrs Reddy on a daily basis
Consensus among services that overall prognosis is extremely poor and patient qualifies for comfort care today
Ongoing GOC discussions with
Critical care time: 35 min
Diagnostic tests:
CXR 04-21-23: CXR post PICC did not show infiltrate (just persistence of known RLL nodule)
CXR 04-21-23 c/w 04-07-22: portable, rotated, L sided volume loss, suspected FRANCISCO infiltrate. Chronic R mid field 2.8 cm oval density (less dense than before)
Head CT 04-21-23
IMPRESSION:
There are no acute intracranial abnormalities.
4 mm lacunar infarct in the body of the caudate on the right
There is moderate diffuse cortical and cerebellar atrophy with moderate nonspecific white matter changes
Facial bones CT
IMPRESSION:
1. Post placement of nasogastric tube and endotracheal tube, expected appearance.
2. Partial opacification of ethmoid air cells and near complete opacification of the nasal cavity as above. Area of opacification with some increased attenuation suggesting possible blood products. Source of hemorrhage is indeterminate on this
examination.
3. No acute facial bone fractures.
4. 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
5. Abnormal asymmetric sphenoid bone on the left as detailed above with thinning and abnormal lucency. Differential considerations include sphenoid dysplasia and meningocele. Given sclerotic margins, metastatic disease is considered unlikely.
Could be further evaluated with follow-up MRI as warranted.
6. 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
TTE 04-07-22
CONCLUSIONS
Normal biventricular size and systolic function without regional wall motion
abnormality. Estimated LVEF 60-65%.
Mild concentric left ventricular hypertrophy.
Mild/moderate mitral regurgitation.
Mild tricuspid regurgitation. Normal PASP.
No prior study available for comparison.
Subjective Dataa
Subjective Data
Date of Service:
Date of Service: April 24, 2023
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
Subjective:
Remains critically ill
EEG essentially flat
Neurology following closely
Follow-up CT today with suspected transtentorial herniation. Discussed with neurology, extremely poor outcome
Review of Systems
General: Unobtainable - Pat Unresp
Objective Data
Data Reviewed
Vital Signs / I&O / Oxygen:
Vital Signs
Temp Pulse Resp BP Pulse Ox
97.6 F 41 14 174/83 99
04/24/23 11:31 04/24/23 11:00 04/24/23 11:00 04/23/23 22:09 04/24/23 11:25
Intake and Output
04/23/23 04/24/23 04/25/23
06:59 06:59 06:59
Intake Total 4644.7 / 4813.4 3292.4 / 3372.4 610 / 610
Output Total 2535 / 2545 1443 / 1943 2100 / 2100
Balance 2109.7 / 2268.4 1849.4 / 1429.4 -1490 / -1490
SaO2 [A/C] 100
SaO2 99
Physical Exam
General: Respiratory Distress (n)
HEENT: Normocephalic, Moist Mucous Membranes and Other (NGT)
Cardiovascular: Regular Rhythm, Murmur and Peripheral Edema (n)
Respiratory: Clear, Non-Labored Respirations, Stridor and ET Tube
GI: Soft and Non Distended
Neurology: Other (sedated)
Skin: Dry
Labs/Micro/Reports
Lab Data
04/24/23 06:00
04/24/23 06:00
Laboratory Results
04/23/23 04/24/23
22:23 03:49
PT 14.3 14.7 H
INR 1.09 1.12
APTT 39.6 H 38.7 H
Microbiology
04/21/23 10:49 Blood/Venous Blood Culture - Preliminary
No Growth in 72 hours- Final report to follow
04/21/23 10:52 Blood/Venous Blood Culture - Preliminary
No Growth in 72 hours- Final report to follow
04/23/23 09:28 Tracheal Aspirate Respiratory Culture - Preliminary
Usual Respiratory Denisse
04/23/23 09:28 Tracheal Aspirate Gram Stain - Preliminary
04/21/23 10:52 Urine Urine Culture - Final
No Significant Growth
04/21/23 20:08 Nose Nasal Screen MRSA (PCR) - Final
MRSA not detected - performed by PCR methodology.
04/21/23 11:18 Nasal Swab Influenza Types A & B (ARACELIS) - Final
Negative for Influenza A & B, NAAT
Negative results must be combined with clinical observations
and patient history.
Nucleic Acid Amplification test (NAAT)performed on the
[employer] platform.
--- NOTE | 2023-04-24 12:40 | PTCARENOTE ---
1230- arrived at bedside, updated on pt's condition. Emotional support given. awaiting niece and pt's brothers arrival around 1300, family to have meeting with physician on goals of care.
--- NOTE | 2023-04-24 16:30 | PTCARENOTE ---
1330-Dr. Dwyer in to speak with family, family wishing to proceed with comfort care. NOEMI notified and charter representative in to speak with . After discussion agreeable to donation. 1500-Dr. Wasserman in to assess pt for brain protocol, pt did
not qualify for brain per MD's exam. Pt with spontaneous movements during stimulation, SBP would increase to 190s with painful stimuli. No gag reflex or corneal reflexes. Pt with a spontaneous coughing episode and overbreathing vent with
stimulation. Family wishing to wait to see if pt progresses to brain and can proceed with donation. No changes in plan of care at this time.
--- NOTE | 2023-04-24 20:00 | PTCARENOTE ---
Received pt intubated, on TTM, normothermia stage. No sedation. Pt. withdrawing to deep nail bed pressure. Head movement noted while performing mouth care. No cough/gag/corneals. Pupils fixed at 5mm B/L. cEEG remains on. SB on tele, HR 40s-50s. BP
130s-150s/60s-70s via R radial A line. A line transduced and zeroed. Trace anasarca. TTM external wrap set at 97.7. Core temp via good 97.5-97.8. #7 ETT- 21 at the lip- moved to the center. Tolerating A/C 14/400/+5/40%. Spo2 100%. Lungs coarse and
diminished. B/L nares with clots. Suctioned mouth for minimal thin bloody secretions. L nare NG to LIWS- maroon output. Hypoactive bowel sounds. Temp sensing good dumping clear urine. COUNSELOR EDUCATION PROFESSOR and GOL aware- no new orders. R DL PICC with NS @150ml/hr.
Turning q2. Monitoring
GOL updated in person and on phone.
--- NOTE | 2023-04-25 | PTCARENOTE ---
Pt reassessed. BP more elevated.. up to 170s/70 via A line. FIELD SPEC aware.. no new orders. Continues to dump urine 175-350ml/hr clear yellow urine. Bathed with CHG, new linens. Neuro status unchanged. Withdrawing to pain at times but not consistently.
[2023-04-25] MEDS: UNASYN IV ×5 (01:07→23:54)
[2023-04-25] MEDS: NSS 1000 IV (01:07)
--- NOTE | 2023-04-25 04:00 | PTCARENOTE ---
Pt. reassessed.. no changes in assessment. AM labs drawn via A line. Neuro status unchanged. Mouth care provided. ETT moved to R side, 21 at lip.
[2023-04-25 04:29] LABS: B.E. 0.5 mmol/L; Hematocrit 24.5 % (39.0-52.0); Hemoglobin 8.7 g/dL (13.0-18.0); Mean Corp Hgb Conc. 35.5 g/dL (33.0-37.0); Mean Corpuscular Volume 90.1 fL (80.0-94.0); Mean Platelet Volume 11.1 fL (7.4-10.4); PCO2 33 mmHg (35-48); PO2 167 mmHg (83-108); Platelet Count 159 10^3/uL (130-400); Red Blood Cell Count 2.72 10^6/uL (4.70-6.10); Red Cell Dist. Width 15.3 % (11.5-14.5); White Blood Cell Count 15.3 10^3/uL (4.8-10.8); pH 7.47 (7.35-7.45)
[2023-04-25 05:34] VITALS: BMI 24.4
[2023-04-25] MEDS: TYLENOL ORAL SOLUTION 650 MG TUBE (05:58)
[2023-04-25 06:12] LABS: ALT (SGPT) 45 U/L (0-50); AST (SGOT) 101 U/L (17-59); Albumin 2.1 g/dl (3.5-5.0); Alkaline Phosphatase 197 U/L (38-126); Blood Urea Nitrogen 15 mg/dl (9-20); Calcium 8.6 mg/dl (8.4-10.2); Carbon Dioxide 24 mmol/L (22-30); Chloride 137 mmol/L (98-107); Estimated Creatinine Clearance 55 ml/min; Glucose 82 mg/dl (70-99); Potassium 2.7 mmol/L (3.5-5.1); Sodium 168 mmol/L (135-145); Total Bilirubin 0.8 mg/dl (0.2-1.3); Total Protein 4.7 g/dl (6.3-8.2); eGFR > 60.00
--- NOTE | 2023-04-25 06:18 | PTCARENOTE ---
48 hrs of normothermia completed. TTM blanket removed. Temp sensing good connected to tele monitor- 97.6. AM labs discussed with VIPIN patel ordered.
[2023-04-25] MEDS: KCL 270 MEQ IV ×2 (06:33→11:43)
[2023-04-25] MEDS: REFRESH CELLUVISC GEL 1 DROPS OPHTH (07:38)
[2023-04-25] MEDS: BUSPAR 30 MG TUBE (07:38)
[2023-04-25] MEDS: PROTONIX IV 40 MG IV (07:38)
[2023-04-25] MEDS: ASPIR LOW (ENTERIC COATED) 81 MG PO (07:38)
[2023-04-25] MEDS: NSS (PRESERVATIVE FREE) 10 ML IV (07:38)
--- NOTE | 2023-04-25 08:00 | PTCARENOTE ---
Received pt @ change of shift. Intubated, no sedation. No eye opening; no corneal reflex; no cough/gag reflex; pupils fixed @ 5mm. Occasional nonpurposeful movement to tactile stimulation; inconsistent w/draw to deep pain. SB in 40-50's. SpO2 100%
on ventilator settings AC14/400/.40/+5. Scant amt of thick/thomson secretions from ETT; bloody oral secretions; mouth care/oral suctioning completed w RT. ETT #7.0, 21 lip in center. L nare NGT to LIS w brown drainage. Old clotted blood noted in nares.
Thermistor good in place draining clear/yellow urine, lg amt of hourly output. TTM suit off per hourly shift RN. EEG d/c'd per neuro. R rad A-line transduced, monitored, and calibrated; all ports patent and secured. R DL PICC w IVF and K+ rider
infusing. Repositioned. Safe environment maintained.
--- NOTE | 2023-04-25 09:49 | W.PN.HOSP.TC ---
Today's Communication/Plan
-
Continue antibiotics
IV fluids to address hypernatremia
Frequent neurologic checks
Poor Prognosis
Being prepared for organ donation
Assessment / Plan
Assessment / Plan
Physical Exam
General: No Apparent Distress
HEENT: Other (Dried blood at the nares; no active bleeding)
Respiratory: Clear to Auscultation (Anteriorly). Intubated and on mechanical ventilation.
Cardiac: Regular Rhythm, S1/S2
GI: Soft
Neuro: Sleeping
Assessment/Plan
Bloody oral secretion causing gagging until respiratory arrest requiring intubation-unclear if blood has ENT source,hemoptysis or hematemesis.� Patient currently has some laceration on the left side of the tongue unclear if it is acute trauma and
also has nasal bloody secretions.� denies any falls.� No obvious external trauma evident.�
-No bloody secretions from ET tube/NG.
-No obvious external GI blood loss
-CT face with contrast shows large amount of blood in the nasal cavities and maxillary sinus was clear. Ethmoid sinus partially obstructed. Sphenoid sinus abnormality noted. Unclear of the nasal bleeding he is in town from [place]. There
is tongue laceration noted. Patient has been troubled with sinusitis for couple of weeks. ENT opinion noted. Observe for now
-H&H dropped noted but the seems to be stable compared to recent baseline. Continue to follow H&H.
Sepsis with shock suspected septic shock-elevated white count and hypothermia noted.� Echo showed normal EF. Unclear if it related to oropharyngeal infection or a UTI.� He has a cloudy urine.� She also has abnormal right upper lobe chest x-ray. Is
known to have recurrent UTIs.� Continue with Unasyn (to cover for aspiration) per ID -currently off of vasopressors.
Out of hospital PEA:-Patient apparently was in respiratory arrest and transient PEA code needing 1 cycle of epinephrine.�
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 Left iris seemed to be abnormal. With sluggish pupils and unknown details of respiratory arrest/PEA
cardiac arrest, neurology consulted and continuous EEG ordered. CT of the head showed concerning for transfer tentorial herniation with diffuse bilateral cerebellar encephalomalacia. He also seemed to have [place] reflex now with the elevated blood
pressure and bradycardia. All concerning for anoxic brain injury. His continuous EEG leads are off-will check with neurology regarding further need of EEG or MRI of the brain.
Acute respiratory failure/Ventilator Dependent Respiratory Failure secondary to oral secretion issues-currently intubated for airway protection and secretion management.� Continue with vent support per pulmonary.
Hyponatremia-nephrology following. Improving
Hypernatremia-D5W at 200cc/hr
History of CVA with residual left-sided weakness-patient on dual antiplatelet agents.� Hold Plavix.� Continue aspirin.
Hypertension with reent hypotension-hold home medication and follow blood pressure which has been on the lower side.
RLL lung nodule
Elevated LFTs
Einus infection/UTI
Epistaxis
Full code
Dr. Rodriguez discussed with Katiana recently and updated the critical nature of his illness.
Anticipated Discharge: > 48 hours
Subjective/Interval History
-
Date of Service: April 25, 2023
Patient was seen and examined. He remained intubated. Case discussed with smoke room operator.
Objective Data
-
Labs:
Laboratory Results
04/25/23 04/25/23
04:22 05:27
WBC 15.3 H
Hgb 8.7 L
Hct 24.5 L
Plt Count 159
HCO3 24.0
Sodium Cancelled 168 H* D
Potassium Cancelled 2.7 L* D
Chloride Cancelled 137 H
Carbon Dioxide Cancelled 24
BUN Cancelled 15
Creatinine Cancelled 1.1
Glucose Cancelled 82
Calcium Cancelled 8.6
Total Bilirubin Cancelled 0.8
AST Cancelled 101 H
ALT Cancelled 45
Alkaline Phosphatase Cancelled 197 H
Vital Signs:
Vital Signs
Temp Pulse Resp BP Pulse Ox
96.8 F L 62 15 174/83 100
04/25/23 07:30 04/25/23 08:00 04/25/23 08:00 04/23/23 22:09 04/25/23 08:03
I&O
04/24/23 04/25/23 04/26/23
06:59 06:59 06:59
Intake Total 3292.4 / 3372.4 3460 / 3707 464 / 464
Output Total 1443 / 1943 8450 / 8850 475 / 475
Balance 1849.4 / 1429.4 -4990 / -5143
--- NOTE | 2023-04-25 09:57 | W.PN.ID1 ---
Date of Service
Date of Service: April 25, 2023
Today's Communication
Grim prognosis.
Continue Unasyn for now to cover aspiration pending comfort measures decision.
Assessment / Plan
# s/p outpatient respiratory/PEA arrest most likely due to choking on significant epistaxis
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
-CXR faint opacity RUL zone
- Sputum cx: usual repiratory yasmin
- Continue Unasyn for now to cover aspiration pending comfort measures decision
-Grim prognosis
# SIRS from respiratory/cardiac arrest
Leukocytosis/shock s/p hypothermia -> all due to cardiac arrest
- blood cx's neg
-Ucx negative
- Supportive care
# Recent sinusitis on abx x 10d
#Additional Past Medical History:
CVA on Plavix
Hypertension
Dyslipidemia
lung nodule
Chief Complaint
-: Other (Shock)
Subjective / Review of Systems
Per nurse, he is organ donor candidate.
Vital Signs / Physical Exam
Vital Signs
Vital Signs
Temp Pulse Resp BP Pulse Ox
96.8 F L 62 15 174/83 100
04/25/23 07:30 04/25/23 08:00 04/25/23 08:00 04/23/23 22:09 04/25/23 08:03
Physical Exam
Constitutional: Acutely Ill
Gastrointestinal: Soft and Non Tender
Genito-Urinary: Mendez and Clear Urine
Neurological: Other (obtunded)
Objective Data
Lab Data
Lab Results
04/25/23 04:22
04/25/23 05:27
PT 14.7 Sec (11.4-14.6) H 04/24/23 03:49
INR 1.12 04/24/23 03:49
APTT 38.7 Sec (23.4-35.0) H 04/24/23 03:49
Estimated Creat Clear 55 ml/min 04/25/23 05:27
Lactic Acid Cancelled 04/24/23 04:00
Total Bilirubin 0.8 mg/dl (0.2-1.3) 04/25/23 05:27
AST 101 U/L (17-59) H 04/25/23 05:27
ALT 45 U/L (0-50) 04/25/23 05:27
Alkaline Phosphatase 197 U/L (38-126) H 04/25/23 05:27
Most recent labs reviewed.
Micro Results:
04/21/23 10:49 Blood Culture - Preliminary
Blood/Venous No Growth in 72 hours- Final report to follow
04/21/23 10:52 Blood Culture - Preliminary
Blood/Venous No Growth in 72 hours- Final report to follow
04/23/23 09:28 Respiratory Culture - Preliminary
Tracheal Aspirate Usual Respiratory Yasmin
Gram Stain - Preliminary
04/21/23 10:52 Urine Culture - Final
Urine No Significant Growth
04/21/23 20:08 Nasal Screen MRSA (PCR) - Final
Nose MRSA not detected - performed by PCR methodology.
04/21/23 11:18 Influenza Types A & B (ARACELIS) - Final
Nasal Swab Negative for Influenza A & B, NAAT
Negative results must be combined with clinical observations
and patient history.
Nucleic Acid Amplification test (NAAT)performed on the
[employer] platform.
04/21/23 CXR: The 2.9 cm pulmonary mass in the superior segment of the right lower lobe is not significantly changed when compared with the 04/07/2022 examination.
The lungs are otherwise clear
04/21/[address]: There are no acute intracranial abnormalities. Old 4 mm lacunar infarct in the body of the caudate on the right
04/21/[address]: �Post placement of nasogastric tube and endotracheal tube, expected appearance.
2. � Partial opacification of ethmoid air cells and near complete opacification of the nasal cavity as above. Area of opacification with some increased attenuation suggesting possible blood products. Source of hemorrhage is indeterminate on this
examination.
3. � No acute facial bone fractures.
4. 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
5. � Abnormal asymmetric sphenoid bone on the left as detailed above with thinning and abnormal lucency. Differential considerations include sphenoid dysplasia and meningocele. Given sclerotic margins, metastatic disease is considered unlikely.
Could be further evaluated with follow-up MRI as warranted.
6. 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
04/24/23 CT head: New diffuse encephalomalacia of the cerebrum bilaterally with associated obliteration of basal cisterns and mass effect on the lateral ventricles suggesting descending transtentorial herniation. Findings likely due to diffuse anoxic
brain injury/global hypoxic event. History of recent code.
--- NOTE | 2023-04-25 10:00 | PTCARENOTE ---
Reached out to nephrology, Dr. Weems, regarding lab work, electrolyte corrections and IVF management. Further orders received-see JUN.
--- NOTE | 2023-04-25 11:39 | RESPNOTE ---
11:26 Apnea test started, RN and Dr. Lopez at bedside. 5 minutes 58 seconds ABG drawn and sent to lab. Back on AC mode @11:33
[2023-04-25] MEDS: KCL 1020 MEQ IV ×3 (11:43→20:33)
[2023-04-25] MEDS: NSS IV (11:44)
[2023-04-25 11:45] LABS: B.E. -0.9 mmol/L; HCO3 25.3 mmol/L (21-28); PCO2 48 mmHg (35-48); PO2 262 mmHg (83-108); pH 7.33 (7.35-7.45)
[2023-04-25 11:46] LABS: O2 Therapy %Oxygen/Room Air 6L
--- NOTE | 2023-04-25 12:05 | PTCARENOTE ---
Apnea test initiated by RT @ 1126 by RT w alexa RN and Dr. Lopez at bedside. Noted spontaneous breaths 5min 49 sec into apnea test, ABG drawn @ 5min [address] Lopez and sent to lab. Back to original vent settings AC14/400/.40/+5 @ 1133 by
RT. SpO2 100% on original vent settings.
--- NOTE | 2023-04-25 12:11 | W.PN.NEPH.PH ---
Today's Communication / Plan
-
-D5W at 200cc/hr
-replete K
-preparing for organ donation
Assessment/Plan
-
Impression:
-hyponatremia --> hypernatremia
-VDRF
-s/p PEA arrest/strong suspicion for anoxic brain injury
-HTN, recent hypotension
-lung nodule RLL
-elevated LFTs
-sinus infection/UTI
-epistaxis
Plan
-serum Na went from 130 to 168 this AM. patient is planning for gift of life
-UOP 7L in 24 hours, consistent with central diabetes insipidus in setting of acute brain injury
-D5W at 200cc/hr to correct Na for organ donation
-replete K PRN. spiked bag with 40meQ
-non oliguric ~ 7L
-critically ill in ICU on vent an pressor support, notably bradycardic & hypertensive
-Abx per primary team
-patient made comfort care and awaiting neuro to declare brain
-critical care time 31 minutes, patient critically ill on ventilator and with dopamine support for hemodynamic instability and bradycardia
-
-
Date of Service: April 25, 2023
CC / HPI / ROS
-
Chief Complaint:
Hyponatremia
History of Present Illness:
Serum sodium was up to 130 and then overcorrected to 168 in the setting of central DI
Hemodynamically labile and with bradycardia
NG tube with active hemorrhage
Intubated
Review of Systems:
Epistaxis ongoing
Nonoliguric
Mendez
Labs
-
Labs:
WBC 15.3 10^3/uL (4.8-10.8) H 04/25/23 04:22
RBC 2.72 10^6/uL (4.70-6.10) L 01/15/24 04:22
Hgb 8.7 g/dL (13.0-18.0) L 04/25/23 04:22
Hct 24.5 % (39.0-52.0) L 04/25/23 04:22
Plt Count 159 10^3/uL (130-400) 04/25/23 04:22
Sodium 168 mmol/L (135-145) H* D 04/25/23 05:27
Potassium 2.7 mmol/L (3.5-5.1) L* D 04/25/23 05:27
Chloride 137 mmol/L (98-107) H 04/25/23 05:27
Carbon Dioxide 24 mmol/L (22-30) 04/25/23 05:27
BUN 15 mg/dl (9-20) 04/25/23 05:27
Creatinine 1.1 mg/dL (0.7-1.3) 04/25/23 05:27
eGFR > 60.00 04/25/23 05:27
Glucose 82 mg/dl (70-99) 04/25/23 05:27
Calcium 8.6 mg/dl (8.4-10.2) 04/25/23 05:27
Phosphorus 4.0 mg/dl (2.5-4.5) 04/24/23 03:49
Pun-D-Narwpmpicjo Pept 376 pg/ml 04/21/23 10:49
Albumin 2.1 g/dl (3.5-5.0) L 04/25/23 05:27
Physical Exam
-
Vital Signs:
Vital Signs
Temp Pulse Resp BP Pulse Ox
95.6 F L 46 14 174/83 100
04/25/23 12:00 04/25/23 10:00 04/25/23 10:00 04/23/23 22:09 04/25/23 12:00
Cardiovascular:: Regular rate and rhythm (bradycardia)
Respiratory:: Bilateral: Coarse
Lung Excursion:: Normal
Abdomen:: Distended and Soft
Bowel Sounds:: Normal
Extremity Edema:: None: Bilateral:
Mendez Catheter: Yes
--- NOTE | 2023-04-25 12:55 | W.PN.INTV ---
Today's Communication / Plan
Recommendations
Continue mechanical ventilation without change
Sedation on hold
Continue antibiotics
IV fluids
Repeat electrolytes later
continue with frequent neurological checks.
N.p.o.
Head of the bed elevation
End-of-life care.
Assessment
-
Assessment:
Mr Raúl Reddy is a 68/M adm 04-21. Found coughing bloody material by at 9:30 am, called 911, found in respiratory arrest, asystole/PEA, ALCS started, orally intubated, epinephrine x1. Reportedly recent sinus infection seen at , started
atb bid (apparently clarithromycin) with improvement. ETT dislodged at ER, reintubated
Impression:
Cardiac arrest at home, unknown duration, attended by EMS upon arrival 04-21
Asystole/PEA
Intubated as scene
ETT expelled at ER, reintubated
Suspected epistaxis based on facial bones CT on adm vs hemoptysis
Hypothermia 34.1 C on adm
Recent sinus infection s/p atb
Acute on chronic leukocytosis
Hyperoxia on ABG (apparently on fiO2 1.0)
Likely acute on chronic hyponatremia
Resolved mild lactic acidosis
Mild transaminitis
Normal troponin/BNP
Abnormal UA, suspected UTI
UDS negative
COVID/flu negative
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
Ischemic CVA, R sided, L sided weakness/spasticity, on plavix/ASA
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
COVID illness Mar 2022, s/p paxlovid
LUE cast
HTN
HLD
Lung lung nodule (RLL sup segment, on CT 09-05-21)
Non-smoker
Plan:
Unfortunately, patient remains unresponsive. No meaningful neurological recovery.
Status post TTM 04/21/2023
Comfortable mechanical ventilation.
Patient has no gag reflex, no corneals, no respiratory effort, no withdrawal to painful stimuli. Occasionally posturing.
Neurology correspondence reviewed. Possible brain .
Apnea test performed by me 04/25/2023: After 5 minutes patient had respiratory effort. Did not qualify for brain . ABG after 5 minutes pCO2 was [address] 04-24: suspected transtentorial herniation
Continue supportive care
Sedation has been off for days
Suspect patient progressing towards brain , hypertensive/bradycardic.
-
Will wait for neurology reevaluation.
I have been in communication with [employer] who is at the site, family has agreed with organ donation.
-
Cardiac arrest-no arrhythmia has been detected so far.
Unclear etiology
Limited information at EMR, no EMS record in chart
D/w over phone 04-21: patient presented cardiac arrest while in ambulance at home driveway: she was told at ER that arrest 'was brief'
Bloody secretions in ETT but no evidence of pulm edema on CXR
Recent sinus infection, received cefpodoxime for 6/10 d, followed by clarithromycin for 2-3 d [employer]AL [employer]IATION COMMISSIONER (no QTc prolongation at ER EKG)
-
Mechanical ventilation settings reviewed:
Continue with current settings
FiO2 40%
ABG with adequate oxygenation on ventilation.
Remains off sedation.
No significant secretions from ET tube.
-
Epistaxis-resolved
Suspected blood at ethmoid cells on CT
ENT evaluation 04-22: suspected L epistaxis which has ceased, rec observation
-
Hemodynamics acceptable.
Continue with support.
-
Hypertensive/bradycardic: Suspect patient is progressing to herniation
Polyuric
Hyponatremic
Nephrology following.
IV fluid have been adjusted per nephrology. I suspect DI.
Creatinine so far stable.
May need to start vasopressin versus DDAVP. I will defer to nephrology.
Repeat laboratories later.
-
On Unasyn for aspiration per infectious disease.
Adm CXR was suspicious for L apical infiltrate, however, CXR post PICC did not show infiltrate (just persistence of known RLL nodule)
Sputum culture. Normal respiratory yasmin.
PICC placed at RUE 04-21
Grim prognosis. Comfort measures, heading towards organ donation. [employer] communicating with family.
For now continue supportive care.
Full code
Will update family when they arrive.
I have discussed the case with [employer], respiratory care, nursing, primary care. Communicated [place] text with neurology. I personally performed apnea test.
Critical care statement: A total of 60 minutes of critical care time was provided for this patient today. This includes management of unstable vital signs, evaluation of the patient at bedside, reviewing the patient's pertinent medical records
including ventilator settings, arterial blood gases, radiographs, microbiology, laboratory evaluations and discussion with primary team, critical care nursing, and respiratory therapy.

Diagnostic tests:
CXR 04-21-23: CXR post PICC did not show infiltrate (just persistence of known RLL nodule)
CXR 04-21-23 c/w 04-07-22: portable, rotated, L sided volume loss, suspected FRANCISCO infiltrate. Chronic R mid field 2.8 cm oval density (less dense than before)
Head CT 04-21-23
IMPRESSION:
There are no acute intracranial abnormalities.
4 mm lacunar infarct in the body of the caudate on the right
There is moderate diffuse cortical and cerebellar atrophy with moderate nonspecific white matter changes
Facial bones CT
IMPRESSION:
1. Post placement of nasogastric tube and endotracheal tube, expected appearance.
2. Partial opacification of ethmoid air cells and near complete opacification of the nasal cavity as above. Area of opacification with some increased attenuation suggesting possible blood products. Source of hemorrhage is indeterminate on this
examination.
3. No acute facial bone fractures.
4. 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
5. Abnormal asymmetric sphenoid bone on the left as detailed above with thinning and abnormal lucency. Differential considerations include sphenoid dysplasia and meningocele. Given sclerotic margins, metastatic disease is considered unlikely.
Could be further evaluated with follow-up MRI as warranted.
6. 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
TTE 04-07-22
CONCLUSIONS
Normal biventricular size and systolic function without regional wall motion
abnormality. Estimated LVEF 60-65%.
Mild concentric left ventricular hypertrophy.
Mild/moderate mitral regurgitation.
Mild tricuspid regurgitation. Normal PASP.
No prior study available for comparison.
Subjective Dataa
Subjective Data
Date of Service:
Date of Service: April 25, 2023
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
Subjective:
On ventilator, unresponsive.
No respiratory effort
No cough effort.
Review of Systems
General: Unobtainable - Pat Unresp
Objective Data
Data Reviewed
Vital Signs / I&O / Oxygen:
Vital Signs
Temp Pulse Resp BP Pulse Ox
95.6 F L 46 14 174/83 100
04/25/23 12:00 04/25/23 10:00 04/25/23 10:00 04/23/23 22:09 04/25/23 12:00
Intake and Output
04/24/23 04/25/23 04/26/23
06:59 06:59 06:59
Intake Total 3292.4 / 3372.4 3460 / 3707 1462 / 1462
Output Total 1443 / 1943 8450 / 8850 1775 / 1775
Balance 1849.4 / 1429.4 -4990 / -5143 -313 / -313
SaO2 [A/C] 100
SaO2 100
Physical Exam
General: Respiratory Distress (n)
HEENT: Normocephalic, Moist Mucous Membranes and Other (NGT)
Cardiovascular: Regular Rhythm, Murmur and Peripheral Edema (n)
Respiratory: Clear, Non-Labored Respirations, Stridor and ET Tube
GI: Soft and Non Distended
Neurology: Other (Unresponsive, no cough effort, no respiratory effort, no gag reflex, no corneals, pupils not reactive.)
Skin: Dry
Labs/Micro/Reports
Lab Data
04/25/23 04:22
Laboratory Results
04/24/23 04/25/23 04/25/23
15:08 04:22 11:37
pH Cancelled 7.47 H 7.33 L
pCO2 Cancelled 33 L 48
pO2 Cancelled 167 H 262 H
HCO3 Cancelled 24.0 25.3
O2 Delivery Level Cancelled %oxygen/room air 6l
Microbiology
04/23/23 09:28 Tracheal Aspirate Respiratory Culture - Final
Usual Respiratory Yasmin
04/23/23 09:28 Tracheal Aspirate Gram Stain - Final
04/21/23 10:49 Blood/Venous Blood Culture - Preliminary
No Growth in 4 days- Final report to follow
04/21/23 10:52 Blood/Venous Blood Culture - Preliminary
No Growth in 4 days- Final report to follow
04/21/23 10:52 Urine Urine Culture - Final
No Significant Growth
--- NOTE | 2023-04-25 15:20 | CM ---
CM following re: discharge planning.
Discussed in rounds, reviewed pt's chart, met with pt. Per Rounds meeting, GOL following, continue supportive care. Pt is an organ donor. Pt's spouse said goodbye to the pt yesterday
D/C plan: comfort care
CM is available for emotional support.
[2023-04-25] MEDS: DDAVP 50.5 MCG IV ×2 (15:27→21:13)
[2023-04-25 15:41] LABS: Blood Urea Nitrogen 15 mg/dl (9-20); Carbon Dioxide 22 mmol/L (22-30); Chloride 151 mmol/L (98-107); Estimated Creatinine Clearance 47 ml/min; Magnesium 3.2 mg/dl (1.6-2.3); Potassium 3.5 mmol/L (3.5-5.1); Sodium 176 mmol/L (135-145); eGFR > 60.00
[2023-04-25 15:51] LABS: Glucose 143 mg/dl (70-99)
--- NOTE | 2023-04-25 17:22 | PTCARENOTE ---
1400 BMP results w critical Na+ level- [address] Kim, nephrology. Received further orders to DDAVP x 1 dose and increased IVF to 250mL/hr- see JUN. Next BMP recheck @ 1999, plan to redose DDAVP w next BMP results per nephro. Inquired
about further IV bolus' to replace fluid deficit, received input to cont w increased IVF rate per Dr. Kim. GOL continuously updated on pt.'s plan of care.
[2023-04-25] MEDS: LEVOPHED 250 IV (19:02)
--- NOTE | 2023-04-25 19:34 | PTCARENOTE ---
pt. w/ abrupt VS flip, tachycardiac into 120's and hypotensive w SBP's in 70's. ICU NOTEMAN, Graham Fernández, notified and further orders received. Levo gtt initiated and titrated per orders- see flow sheet. HR currently 90-100's. GOL notified.
Nightshift RN updated.
[2023-04-25 20:33] LABS: Blood Urea Nitrogen 17 mg/dl (9-20); Calcium 8.3 mg/dl (8.4-10.2); Carbon Dioxide 23 mmol/L (22-30); Chloride 145 mmol/L (98-107); Estimated Creatinine Clearance 47 ml/min; Glucose 122 mg/dl (70-99); Potassium 4.4 mmol/L (3.5-5.1); Sodium 169 mmol/L (135-145); eGFR > 60.00
[2023-04-25 21:21] VITALS: BP 215/117
[2023-04-25 21:25] VITALS: BP 101/67
--- NOTE | 2023-04-25 22:01 | PTCARENOTE ---
Rec'd care of patient from previous RN at 1900. Patient unresponsive to all stimuli. Pupils fixed and dilated at 5mm. Corneal and gag reflexes absent. NSR in the 70-90's on tele monitor. Initiated on Levophed gtt by previous RN. Titrating for MAP
>65. BP labile. Right radial arterial line leveled and zeroed. Correlating with BP cuff. A/C 14/400/40%/5 on ventilator. #7 ett @ 21 cm, repositioned to the left. Lung sounds coarse/diminished throughout. Left nare NGT to suction with brown output.
Hypo BS. Voiding via good. Urine clear/yellow. Repeat BMP sent at 1999. Na 169. Additional dose of Ddavp administered. GOL notified of changes. Coordinator at bedside to assess patient.
[2023-04-25 23:59] VITALS: BP 100/69
--- NOTE | 2023-04-26 00:03 | PTCARENOTE ---
No changes in assessment. Patient remains unresponsive to stimuli. SB on tele monitor with rate in the 50's. Levophed gtt weaned to 3 mcg/min. Aquiles hugger placed back on for core temp of 95.4.
[2023-04-26] MEDS: KCL 1020 MEQ IV ×3 (00:38→08:56)
[2023-04-26 03:25] LABS: % Basophils 0.1 % (0-2); % Eosinophils 0.4 % (0-6); % Immature Granulocytes 1.2 % (0-0.5); % Monocytes 9.8 % (1.7-9.3); % Neutrophils 76.5 % (42.2-75.2); Absolute Eosinophils 0.1 10^3/uL (0-0.7); Absolute Immature Granulocytes 0.2 10^3/uL (0-0.05); Absolute Lymphocytes 1.9 10^3/uL (1.2-3.4); Absolute Monocytes 1.6 10^3/uL (0.1-0.6); Absolute Neutrophils 12.1 10^3/uL (1.4-6.5); Hematocrit 21.3 % (39.0-52.0); Hemoglobin 7.3 g/dL (13.0-18.0); Mean Corp Hgb Conc. 34.3 g/dL (33.0-37.0); Mean Corpuscular Hgb 31.6 pg (27.0-31.0); Mean Corpuscular Volume 92.2 fL (80.0-94.0); Mean Platelet Volume 11.1 fL (7.4-10.4); Nucleated Red Blood Cells % 1.8 % (-); Platelet Count 154 10^3/uL (130-400); Red Blood Cell Count 2.31 10^6/uL (4.70-6.10); Red Cell Dist. Width 16.1 % (11.5-14.5); White Blood Cell Count 15.8 10^3/uL (4.8-10.8)
[2023-04-26 03:31] VITALS: BMI 23.9
--- NOTE | 2023-04-26 03:38 | PTCARENOTE ---
Pt reassessed. No changes. AM labs drawn.
[2023-04-26 03:42] VITALS: BP 92/63
[2023-04-26 04:01] LABS: ALT (SGPT) 36 U/L (0-50); AST (SGOT) 71 U/L (17-59); Albumin 1.8 g/dl (3.5-5.0); Alkaline Phosphatase 182 U/L (38-126); Blood Urea Nitrogen 19 mg/dl (9-20); Calcium 7.9 mg/dl (8.4-10.2); Carbon Dioxide 23 mmol/L (22-30); Chloride 137 mmol/L (98-107); Estimated Creatinine Clearance 43 ml/min; Glucose 124 mg/dl (70-99); Potassium 5.1 mmol/L (3.5-5.1); Sodium 164 mmol/L (135-145); Total Bilirubin 0.7 mg/dl (0.2-1.3); Total Protein 4.1 g/dl (6.3-8.2); eGFR 55.43
[2023-04-26] MEDS: UNASYN IV ×4 (05:31→23:54)
[2023-04-26] MEDS: NSS (PRESERVATIVE FREE) 10 ML IV (07:22)
[2023-04-26] MEDS: PROTONIX IV 40 MG IV (07:22)
[2023-04-26] MEDS: DDAVP 50.5 MCG IV (07:22)
[2023-04-26] MEDS: ASPIR LOW (ENTERIC COATED) 81 MG PO (07:22)
--- NOTE | 2023-04-26 08:00 | PTCARENOTE ---
Received pt @ change of shift. Pt. intubated, no sedation. No movement to any stimuli. Pupils fixed/dilated @ 5mm b/l. Does not open eyes spontaneously; no tracking; absent corneal reflex; absent cough/gag. SB-SR. BPs labile on pressor- titrated
per orders- see MAR. SpO2 100% on vent AC14/400/.40/+5; smal thin/bloody oral secretions; scant thick/thomson secretions from ETT. #7.0 ETT, 21 @ lip on R side. Coarse breath sounds throughout. L nare NGT to LIS w brown drainage. Thermistor Mendez in
place w yellow/clear urine, output slowed down s/p mx doses DDAVP. R DL PICC w IVF and levo gtt. R rad A-line, transduced, calibrated and monitored; all ports patent and secured. Repositioned. Safe environment maintained.
--- NOTE | 2023-04-26 08:51 | PN.CDI ---
CDI
- -
CDI:
Physician Documentation Request
Admit Date: 04/21/23 13:22
Dear Doctor Nikkie,
Clinical Indicators:
Patient admitted s/p cardiac arrest.
04/21 H & P,'Bloody oral secretion causing gagging until respiratory arrest requiring intubation-unclear if it is hemoptysis or hematemesis.
04/21 (14:30) RN note, 'Bloody secretions coming from mouth and ETT.'
04/23 (22:15) RN note,'patient found with bloody vomit and a large clot hanging from right nare.'
IVF given, with rates up to 250 ml/hr + boluses
Hgb/Hct trend:
04/21/23 04/23/23 04/24/23
10:49 00:21 03:49
Hgb 14.5 9.6 L 8.3 L
Hct 41.1 25.7 L 22.9 L
Based on the above, could you clarify in the progress notes, the appropriate diagnosis, if significant, that supports the above abnormalities and additional evaluation, monitoring and/or treatment rendered:
Acute blood loss anemia
Anemia, multifactorial due to acute blood loss and hemodilution
Anemia due to hemodilution only
Other, please specify
Use of terms such as suspected, likely, concern for, or probable (associated with a specific diagnosis that is being evaluated, monitored, or treated as if it exists) are acceptable and can be coded in the inpatient setting, when documented at the
time of discharge.
Thank you,
CLAIR Obando RN
CDI Specialist
available via tiger text
Please use your independent medical judgment in providing your response.
[2023-04-26] MEDS: PITRESSIN 100 IV ×2 (08:56→17:22)
--- NOTE | 2023-04-26 09:08 | PN.CDI ---
CDI
- -
CDI:
Physician Documentation Request
Admit Date: 04/21/23 13:22
Dear Doctor Nikkie,
Please review the following and provide your response in the progress notes.
Clinical Indicators:
Patient admitted s/p cardiac arrest.
Home medications include: Clopidogrel 75 mg tablet 75 mg PO DAILY.
04/21 H & P, 'Bloody oral secretion causing gagging until respiratory arrest requiring intubation-unclear if it is hemoptysis or hematemesis...Hold Plavix..'.
Please clarify if there is a relationship between the bloody oral secretions and Plavix use:
Yes,bloody oral secretions are related to/associated with/exacerbated by Plavix use.
No, bloody oral secretions are not related to/associated with/exacerbated by Plavix use but it is due to ___. (Please specify)
Unable to determine
Use of terms such as suspected, likely, concern for, or probable (associated with a specific diagnosis that is being evaluated, monitored, or treated as if it exists) are acceptable and can be coded in the inpatient setting, when documented at the
time of discharge.
Thank you,
CLAIR Obando RN
CDI Specialist
available via tiger text
Please use your independent medical judgment in providing your response.
[2023-04-26 10:35] LABS: Blood Urea Nitrogen 18 mg/dl (9-20); Calcium 7.4 mg/dl (8.4-10.2); Carbon Dioxide 21 mmol/L (22-30); Chloride 136 mmol/L (98-107); Estimated Creatinine Clearance 43 ml/min; Glucose 130 mg/dl (70-99); Potassium 6.2 mmol/L (3.5-5.1); Sodium 155 mmol/L (135-145); eGFR 55.43
[2023-04-26] MEDS: D5W 1000 IV ×4 (11:00→22:59)
--- NOTE | 2023-04-26 11:39 | PTCARENOTE ---
In contact w neurology, d/t metabolic abnormalities pt. unable to be assessed for brain per Dr. Giordano. Also in contact w Nephrology, Dr. Weems, regarding electrolyte correction. BMP sent to lab, critical K+ 6.[address] Lopez and
Na+ [address] Giordano. Pt. Na+ remains to high for clinical neuro exam for brain . Case discussed in interdisciplinary rounds, plan w/draw care vs electrolyte correction for possible GOL donation pending Dr. Lopez discussion with
family. Safe environment maintained.
--- NOTE | 2023-04-26 12:13 | W.PN.INTV ---
Today's Communication / Plan
Recommendations
Continue vasopressin/Levophed
Hypotonic IV fluids
Remains off sedation
Supportive care until family advises otherwise
Assessment
-
Assessment:
Mr Raúl Reddy is a 68/M adm 04-21. Found coughing bloody material by at 9:30 am, called 911, found in respiratory arrest, asystole/PEA, ALCS started, orally intubated, epinephrine x1. Reportedly recent sinus infection seen at , started
atb bid (apparently clarithromycin) with improvement. ETT dislodged at ER, reintubated
Impression:
Cardiac arrest at home, unknown duration, attended by EMS upon arrival 04-21
Asystole/PEA
Intubated as scene
ETT expelled at ER, reintubated
Suspected epistaxis based on facial bones CT on adm vs hemoptysis
Hypothermia 34.1 C on adm
Recent sinus infection s/p atb
Acute on chronic leukocytosis
Hyperoxia on ABG (apparently on fiO2 1.0)
Likely acute on chronic hyponatremia
Resolved mild lactic acidosis
Mild transaminitis
Normal troponin/BNP
Abnormal UA, suspected UTI
UDS negative
COVID/flu negative
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
Ischemic CVA, R sided, L sided weakness/spasticity, on plavix/ASA
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
COVID illness Mar 2022, s/p paxlovid
LUE cast
HTN
HLD
Lung lung nodule (RLL sup segment, on CT 09-05-21)
Non-smoker
Plan:
Unfortunately, patient remains unresponsive. No meaningful neurological recovery.
Status post TTM 04/21/2023
Remains comatose.
Patient has no gag reflex, no corneals, no respiratory effort, no withdrawal to painful stimuli. Occasionally posturing.
Neurology has seen the patient in the past. Severe brain injury/ischemic.
Apnea test performed by me 04/25/2023: After 5 minutes patient had respiratory effort. Did not qualify for brain . ABG after 5 minutes pCO2 was [address] 04-24: suspected transtentorial herniation
Continue supportive care
Sedation has been off for days
Suspect patient progressing towards brain , hypertensive/bradycardic.
-
I have been in communication with Frazr who is at the site, family has agreed with organ donation.
-
Cardiac arrest-no arrhythmia has been detected so far.
Unclear etiology
Limited information at EMR, no EMS record in chart
D/w over phone 04-21: patient presented cardiac arrest while in ambulance at home driveway: she was told at ER that arrest 'was brief'
Bloody secretions in ETT but no evidence of pulm edema on CXR
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
-
Mechanical ventilation settings reviewed:
Continue with current settings
FiO2 40%
ABG with adequate oxygenation on ventilation.
Remains off sedation.
No significant secretions from ET tube.
-
Epistaxis-resolved
Suspected blood at ethmoid cells on CT
ENT evaluation 04-22: suspected L epistaxis which has ceased, rec observation
-
Hypotensive: On low-dose Levophed.
Given hyponatremia will increase vasopressin.
Continue with support.
-
Hypertensive/bradycardic: Suspect patient is progressing to herniation
Polyuric
Hypernatremic.
Nephrology following.
IV fluid have been adjusted per nephrology. I suspect DI.
Renal function worsening.
Status post DDAVP.
Started vasopressin 04/26/2023
-
On Unasyn for aspiration per infectious disease.
Adm CXR was suspicious for L apical infiltrate, however, CXR post PICC did not show infiltrate (just persistence of known RLL nodule)
Sputum culture. Normal respiratory yasmin.
PICC placed at E 04-21
Grim prognosis. Comfort measures, heading towards organ donation. [facility] of life communicating with family.
Will continue supportive care until family advises otherwise. Gift of life is communicating with family.
If continues to deteriorate comfort measures.
states that she is not coming back to the hospital.
Critical care statement: A total of 35 minutes of critical care time was provided for this patient today. This includes management of unstable vital signs, evaluation of the patient at bedside, reviewing the patient's pertinent medical records
including ventilator settings, arterial blood gases, radiographs, microbiology, laboratory evaluations and discussion with primary team, critical care nursing, and respiratory therapy.

Diagnostic tests:
CXR 04-21-23: CXR post PICC did not show infiltrate (just persistence of known RLL nodule)
CXR 04-21-23 c/w 04-07-22: portable, rotated, L sided volume loss, suspected FRANCISCO infiltrate. Chronic R mid field 2.8 cm oval density (less dense than before)
Head CT 04-21-23
IMPRESSION:
There are no acute intracranial abnormalities.
4 mm lacunar infarct in the body of the caudate on the right
There is moderate diffuse cortical and cerebellar atrophy with moderate nonspecific white matter changes
Facial bones CT
IMPRESSION:
1. Post placement of nasogastric tube and endotracheal tube, expected appearance.
2. Partial opacification of ethmoid air cells and near complete opacification of the nasal cavity as above. Area of opacification with some increased attenuation suggesting possible blood products. Source of hemorrhage is indeterminate on this
examination.
3. No acute facial bone fractures.
4. 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
5. Abnormal asymmetric sphenoid bone on the left as detailed above with thinning and abnormal lucency. Differential considerations include sphenoid dysplasia and meningocele. Given sclerotic margins, metastatic disease is considered unlikely.
Could be further evaluated with follow-up MRI as warranted.
6. 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
TTE 04-07-22
CONCLUSIONS
Normal biventricular size and systolic function without regional wall motion
abnormality. Estimated LVEF 60-65%.
Mild concentric left ventricular hypertrophy.
Mild/moderate mitral regurgitation.
Mild tricuspid regurgitation. Normal PASP.
No prior study available for comparison.
Subjective Dataa
Subjective Data
Date of Service:
Date of Service: April 26, 2023
Chief Complaint: Press Manager Follow Up (Respiratory failure require mechanical ventilation/status post cardiac arrest/severe anoxic brain injury)
Subjective:
Remains unresponsive
On mechanical ventilation
No meaningful recovery.
Review of Systems
General: Unobtainable - Pat Unresp
Objective Data
Data Reviewed
Vital Signs / I&O / Oxygen:
Vital Signs
Temp Pulse Resp BP Pulse Ox
96.0 F L 54 16 92/63 100
04/26/23 12:05 04/26/23 10:00 04/26/23 10:00 04/26/23 03:42 04/26/23 12:00
Intake and Output
04/25/23 04/26/23 04/27/23
06:59 06:59 06:59
Intake Total 3460 / 3707 6708.2 / 7027.0 1718.6 / 1718.6
Output Total 8450 / 8850 3870 / 3880 100 / 100
Balance -4990 / -5143 2838.2 / 3147.0 1618.6 / 1618.6
SaO2 [A/C] 100
SaO2 100
Physical Exam
General: Respiratory Distress (n)
HEENT: Normocephalic, Moist Mucous Membranes and Other (NGT)
Cardiovascular: Regular Rhythm, Murmur and Peripheral Edema (n)
Respiratory: Clear, Non-Labored Respirations, Stridor and ET Tube
GI: Soft and Non Distended
Neurology: Other (Unresponsive, no cough effort, no respiratory effort, no gag reflex, no corneals, pupils not reactive.)
Skin: Dry
Labs/Micro/Reports
Lab Data
04/26/23 03:16
04/26/23 09:41
Microbiology
04/21/23 10:49 Blood/Venous Blood Culture - Final
No Growth - Final Report
04/21/23 10:52 Blood/Venous Blood Culture - Final
No Growth - Final Report
04/23/23 09:28 Tracheal Aspirate Respiratory Culture - Final
Usual Respiratory Yasmin
04/23/23 09:28 Tracheal Aspirate Gram Stain - Final
--- NOTE | 2023-04-26 12:51 | W.PN.NEPH.PH ---
Today's Communication / Plan
-
- s/p DDVAP and fluids
- Na downtrending
- most likely withdrawal of care later today
Assessment/Plan
-
Impression:
-hyponatremia --> hypernatremia
-VDRF
-s/p PEA arrest/strong suspicion for anoxic brain injury
-HTN, recent hypotension
-lung nodule RLL
-elevated LFTs
-sinus infection/UTI
-epistaxis
Plan
-serum Na went from 130 to 168 this AM. patient was initiated on D5W to try to correct but with severe central DI, Na increased 176. patient given DDAVP 2mcg x3. Na slowly downtrending to 155 this AM with DDAVP and D5W
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
-D5W at 250cc/hr to correct Na for organ donation
-replete K PRN
-patient initially wanted gift of life, not sure if this will be possible with severe metabolic derangements. family deciding about withdrawal of care today
-critically ill in ICU on vent an pressor support, notably bradycardic & hypertensive
-critical care time 31 minutes, patient critically ill on ventilator and with dopamine support for hemodynamic instability and bradycardia
-
-
Date of Service: April 26, 2023
CC / HPI / ROS
-
Chief Complaint:
Hyponatremia
History of Present Illness:
Serum sodium was up to 130 and then overcorrected to 176 in the setting of central DI. now down to 155
Hemodynamically labile and with bradycardia
NG tube with active hemorrhage
Intubated
Review of Systems:
Epistaxis ongoing
Nonoliguric
Mendez
Labs
-
Labs:
WBC 15.8 10^3/uL (4.8-10.8) H 01/16/24 03:16
RBC 2.31 10^6/uL (4.70-6.10) L 04/26/23 03:16
Hgb 7.3 g/dL (13.0-18.0) L 04/26/23 03:16
Hct 21.3 % (39.0-52.0) L 04/26/23 03:16
Plt Count 154 10^3/uL (130-400) 04/26/23 03:16
eGFR 55.43 04/26/23 09:41
Phosphorus 4.0 mg/dl (2.5-4.5) 04/24/23 03:49
Lpo-Z-Guczjdcaulu Pept 376 pg/ml 04/21/23 10:49
Albumin 1.8 g/dl (3.5-5.0) L 04/26/23 03:16
Physical Exam
-
Vital Signs:
Vital Signs
Temp Pulse Resp BP Pulse Ox
96.0 F L 52 18 92/63 100
04/26/23 12:05 04/26/23 12:00 04/26/23 12:00 04/26/23 03:42 04/26/23 12:10
Cardiovascular:: Irregular rate and rhythm (bradycardic)
Respiratory:: Bilateral: Coarse
Lung Excursion:: Normal
Abdomen:: Distended, Nontender and Soft
Bowel Sounds:: Normal
Extremity Edema:: None: Bilateral:
Mendez Catheter: Yes
[2023-04-26 13:13] LABS: B.E. -6.1 mmol/L; HCO3 18.2 mmol/L (21-28); PCO2 30 mmHg (35-48); PO2 170 mmHg (83-108); pH 7.39 (7.35-7.45)
--- NOTE | 2023-04-26 15:07 | PTCARENOTE ---
s/p goals of care discussion between GOL ict sales representative and pt.'s , plan to cont with supportive care in hopes of organ donation via brain course. Dr. Lopez aware of conversion; code status changed to DNR per 's wishes. Trending BMP
for electrolyte corrections, BMP sent to lab and awaiting results. Supportive care continued and safe environment maintained.
[2023-04-26 15:22] LABS: Blood Urea Nitrogen 17 mg/dl (9-20); Calcium 7.2 mg/dl (8.4-10.2); Carbon Dioxide 20 mmol/L (22-30); Chloride 129 mmol/L (98-107); Estimated Creatinine Clearance 47 ml/min; Glucose 163 mg/dl (70-99); Potassium 5.6 mmol/L (3.5-5.1); Sodium 149 mmol/L (135-145); eGFR > 60.00
--- NOTE | 2023-04-26 16:13 | PTCARENOTE ---
Addendum entered by Rossi Santana RN 04/26/23 16:38:
ABG results relayed to Dr. Lopez. CO2 59, unable to qualify for brain under policy. Neuro updated on apnea test/ABG results. Plan to repeat apnea test in AM; if pt. does not qualify for brain after AM apnea testing, plan is to withdraw
care per Dr. Lopez. GOL @ bedside updated. GOL rep relayed/explained findings/plan to pt.'s .
Original Note:
Apnea test initiated by RT @ [address] Lopez at bedside. No spontaneous breath noted over 8min time period. ABG drawn and sent to lab 8 min into apnea test. Apnea test completed @ 1406 and pt placed back on vent AC settings. Awaiting ABG results.
--- NOTE | 2023-04-26 16:15 | W.PN.UPDATE ---
Update Note
Progress Note Update
Apnea test performed.
Patient was hyperoxygenated for 10 minutes.
Disconnected from the ventilator, nasal cannula oxygen was provided via ET tube at 6 L. Baseline ABG was obtained.
Patient remained hemodynamically stable, normokalemic, no evident respiratory effort was noted on exam.
ABG was obtained after 8 minutes.
[2023-04-26 16:23] LABS: B.E. -7.4 mmol/L; PCO2 59 mmHg (35-48); PO2 365 mmHg (83-108)
[2023-04-26 16:25] LABS: pH 7.16 (7.35-7.45)
--- NOTE | 2023-04-26 18:06 | RESPNOTE ---
1545 Apnea test done
--- NOTE | 2023-04-26 18:29 | W.PN.HOSP.TC ---
Today's Communication/Plan
-
ICU performed apnea test
Continue antibiotics
Monitoring patient in ICU
Assessment / Plan
Assessment / Plan
Physical Exam
General: No Apparent Distress
HEENT: Other (Dried blood at the nares; no active bleeding)
Respiratory: Clear to Auscultation (Anteriorly). Intubated and on mechanical ventilation.
Cardiac: Regular Rhythm, S1/S2
GI: Soft
Neuro: Sleeping
Assessment/Plan
Bloody oral secretion causing gagging until respiratory arrest requiring [id number] if blood has ENT source,hemoptysis or hematemesis.� Patient currently has some laceration on the left side of the tongue unclear if it is acute
trauma and also has nasal bloody secretions.� denies any falls.� No obvious external trauma evident.�
Yes,bloody oral secretions are related to/associated with/exacerbated by Plavix use.
Concern for Acute Blood Loss Anemia
-No obvious external GI blood loss
-CT face with contrast showed large amount of blood in the nasal cavities and maxillary sinus was clear. Ethmoid sinus partially obstructed. Sphenoid sinus abnormality noted. Unclear of the nasal bleeding he is in town from [employer]. There
is tongue laceration noted. Patient has been troubled with sinusitis for couple of weeks. ENT opinion noted. Observe for now
-H&H dropped noted - continue to follow H&H.
Sepsis with shock suspected septic shock-elevated white count and hypothermia noted.� Echo showed normal EF. Unclear if it related to oropharyngeal infection or a UTI.� He has a cloudy urine.� She also has abnormal right upper lobe chest x-ray. Is
known to have recurrent UTIs.� Continue with Unasyn (to cover for aspiration) per ID -currently off of vasopressors.
Out of hospital PEA:-Patient apparently was in respiratory arrest and transient PEA code needing 1 cycle of epinephrine.�
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 Left iris seemed to be abnormal. With sluggish pupils and unknown details of respiratory arrest/PEA
cardiac arrest, neurology consulted and continuous EEG ordered. CT of the head showed concerning for transfer tentorial herniation with diffuse bilateral cerebellar encephalomalacia. He also seemed to have Piotr reflex now with the elevated blood
pressure and bradycardia. All concerning for anoxic brain injury. His continuous EEG leads are off-will consider checking with neurology regarding further need of EEG or MRI of the brain.
-Apnea test performed by ICU team: as per ICU team, patient remained hemodynamically stable, normokalemic, no evident respiratory effort was noted on exam - did not qualify for brain
Acute respiratory failure/Ventilator Dependent Respiratory Failure secondary to oral secretion issues-currently intubated for airway protection and secretion management.� Continue with vent support per pulmonary.
Hyponatremia-nephrology following. RESOLVED.
Hypernatremia-D5W at 250cc/hr. Got DDAVP.
History of CVA with residual left-sided weakness-patient on dual antiplatelet agents.� Hold Plavix.� Continue aspirin.
Hypertension with reent hypotension-hold home medication and follow blood pressure which has been on the lower side.
RLL lung nodule
Elevated LFTs
Einus infection/UTI
Epistaxis
Full code
Dr. Rodriguez discussed with Katiana recently and updated the critical nature of his illness.
Anticipated Discharge: > 48 hours
Subjective/Interval History
-
Date of Service: April 26, 2023
Objective Data
-
Labs:
Laboratory Results
04/26/23 04/26/23 04/26/23
09:41 13:03 14:21
HCO3 18.2 L
Sodium 155 H D 149 H
Potassium 6.2 H* 5.6 H
Chloride 136 H 129 H
Carbon Dioxide 21 L 20 L
BUN 18 17
Creatinine 1.4 H 1.3
Glucose 130 H 163 H
Calcium 7.4 L 7.2 L
04/26/23 04/26/23
14:30 16:08
HCO3 Cancelled 21.0
Sodium
Potassium
Chloride
Carbon Dioxide
BUN
Creatinine
Glucose
Calcium
Vital Signs:
Vital Signs
Temp Pulse Resp BP Pulse Ox
96.5 F L 53 15 92/63 100
04/26/23 18:00 04/26/23 18:00 04/26/23 18:00 04/26/23 03:42 04/26/23 17:00
I&O
04/25/23 04/26/23 04/27/23
06:59 06:59 06:59
Intake Total 3460 / 3707 6708.2 / 7027.0 3542.6 / 3542.6
Output Total 8450 / 8850 3870 / 3880 540 / 540
Balance -4990 / -5143 2838.2 / 3147.0 3002.6 / 3002.6
--- NOTE | 2023-04-26 19:59 | PTCARENOTE ---
Assumed care of patient from previous RN at 1900. Patient unresponsive to all stimuli. Gag and corneal reflexes absent. Pupils dilated and nonreactive; 5mm. Intubated with #7 ett @ 21cm. Repositioned to the right. Vent settings: A/C 14/400/5/40%. RR
14. POX 100%. Lung sounds coarse/diminished. SB on tele monitor with rate in the 50's. NGT in left nare to low intermittent suction. Mendez catheter draining clear/yellow urine. Vasopressin infusing at 0.03. Levophed off. Right radial a-line leveled
and zeroed. Correlating with BP cuff. Aquiles hugger on for goal temp of 97.0. Full assessment and care as charted on worklist.
[2023-04-26 20:33] VITALS: BP 128/82
[2023-04-26 23:00] VITALS: BP 125/81
[2023-04-27 00:02] VITALS: BP 131/81
--- NOTE | 2023-04-27 00:09 | PTCARENOTE ---
Systems reviewed. No changes. Vitals stable. SB on tele monitor.
[2023-04-27 02:09] VITALS: BP 182/116
--- NOTE | 2023-04-27 02:24 | PTCARENOTE ---
Pt's BP 190-220/100's. CIRCUITRY NEGATIVE INSPECTOR and GOL notified. Vasopressin gtt off.
[2023-04-27] MEDS: D5W 1000 IV ×3 (03:04→16:24)
[2023-04-27 03:21] VITALS: BMI 26.2
[2023-04-27 03:47] LABS: % Basophils 0.2 % (0-2); % Eosinophils 2.3 % (0-6); % Immature Granulocytes 1.3 % (0-0.5); % Lymphocytes 4.9 % (20.5-51.1); % Monocytes 5.6 % (1.7-9.3); % Neutrophils 85.7 % (42.2-75.2); Absolute Eosinophils 0.4 10^3/uL (0-0.7); Absolute Immature Granulocytes 0.2 10^3/uL (0-0.05); Absolute Lymphocytes 0.9 10^3/uL (1.2-3.4); Mean Corp Hgb Conc. 33.3 g/dL (33.0-37.0); Mean Corpuscular Hgb 32.7 pg (27.0-31.0); Mean Platelet Volume 11.8 fL (7.4-10.4); Nucleated Red Blood Cells % 0.8 % (-); Platelet Count 89 10^3/uL (130-400); Red Blood Cell Count 1.99 10^6/uL (4.70-6.10); Red Cell Dist. Width 15.9 % (11.5-14.5); White Blood Cell Count 18.6 10^3/uL (4.8-10.8)
[2023-04-27 03:55] LABS: Hematocrit 19.5 % (39.0-52.0); Hemoglobin 6.5 g/dL (13.0-18.0)
[2023-04-27 04:02] VITALS: BP 100/63
--- NOTE | 2023-04-27 04:14 | PTCARENOTE ---
Addendum entered by Park Esteves RN 04/27/23 04:51:
Repeat H&H - 6.3, 18.7. No orders to transfuse at current time. GOL updated.
Original Note:
MAHI Hahn notified of critical lab results. Hgb 6.5, Hct 19.5. Order to repeat H&H placed.
[2023-04-27 04:38] LABS: Hematocrit 18.7 % (39.0-52.0); Hemoglobin 6.3 g/dL (13.0-18.0)
[2023-04-27 04:58] LABS: ALT (SGPT) 36 U/L (0-50); AST (SGOT) 64 U/L (17-59); Albumin 1.9 g/dl (3.5-5.0); Alkaline Phosphatase 205 U/L (38-126); Blood Urea Nitrogen 16 mg/dl (9-20); Calcium 7.1 mg/dl (8.4-10.2); Carbon Dioxide 21 mmol/L (22-30); Chloride 117 mmol/L (98-107); Estimated Creatinine Clearance 51 ml/min; Glucose 177 mg/dl (70-99); Potassium 4.6 mmol/L (3.5-5.1); Sodium 138 mmol/L (135-145); Total Bilirubin 0.9 mg/dl (0.2-1.3); Total Protein 4.4 g/dl (6.3-8.2); Triglycerides 56 mg/dl (10-149); eGFR > 60.00
[2023-04-27] MEDS: UNASYN IV ×2 (05:44→11:33)
--- NOTE | 2023-04-27 05:50 | PTCARENOTE ---
Patients Na level down to 138 from 149. D5W rate decreased to 125 mL/hr.
--- NOTE | 2023-04-27 07:20 | PTCARENOTE ---
Received pt unresponsive w/Aquiles hugger. Pupils fixed @5. No cough, no gag, no corneal reflexes. Right upper arm PICC with IVF. Right radial arterial line transduced, calibrated and monitored. Rg ports patent and secured. +2 anasarca. Knee-hi SCD's
intact. #7ETT secured centered @21cm. Copious bloody oral secretions. Small clot suctioned orally. Dried blood in his right nares. Tolerating AC 14/400/.40/+5. Breath sounds posteriorly tubular and CTA. Anteriorly coarse and louder on the right than
the left. Hypoactive BSX4. Left nare [place] sump to LIWS for green bilious secretions. Incontinent for smear loose black/green stool. Pericare given and repositioned. Left hand/wrist casted, elevated on pillows. Minimal UOP via temperature sensing
Mendez catheter. Aspiration and right U/E precautions maintained. Safe environment maintained, will continue to monitor.
--- NOTE | 2023-04-27 08:26 | W.PN.NEPH.PH ---
Today's Communication / Plan
-
maintain hypotonic ivfs d5W at 125ml/hr
recheck lytes at 1400
Assessment/Plan
-
Impression:
-hyponatremia --> hypernatremia
-VDRF
-s/p PEA arrest/strong suspicion for anoxic brain injury
-HTN, recent hypotension
-lung nodule RLL
-elevated LFTs
-sinus infection/UTI
-epistaxis
Plan
-serum osdium at 138
- D5W to try to correct but with severe central DI,. previously patient given DDAVP 2mcg x3.
-UOP 5L t with central diabetes insipidus in setting of acute brain injury
-D5W at 125cc/hr to correct Na for organ donation
-recheck lytes 1400
-replete K PRN
-acidemia exacerbating per review of ABG
-patient initially wanted gift of life, not sure if this will be possible with severe metabolic derangements. family deciding about withdrawal of care today
-critically ill in ICU on vent an pressor support, notably bradycardic & hypertensive
-critical care time 31 minutes, patient critically ill on ventilator and with dopamine support for hemodynamic instability and bradycardia
Total Time Spent with Patient (in minutes): 31 minutes
-
-
Date of Service: April 27, 2023
CC / HPI / ROS
-
Chief Complaint:
Hyponatremia
History of Present Illness:
Serum sodium at 138
Hemodynamically more stable and with bradycardia
NG tube with active hemorrhage
Intubated with stable FiO2
Review of Systems:
Epistaxis ongoing
Nonoliguric ~ 5L
Vanessa
Labs
-
Labs:
WBC 18.6 10^3/uL (4.8-10.8) H 04/27/23 03:03
RBC 1.99 10^6/uL (4.70-6.10) L 04/27/23 03:03
Hgb 6.3 g/dL (13.0-18.0) L* 04/27/23 04:26
Hct 18.7 % (39.0-52.0) L* 04/27/23 04:26
Plt Count 89 10^3/uL (130-400) L D 04/27/23 03:03
Sodium 138 mmol/L (135-145) D 04/27/23 03:03
Potassium 4.6 mmol/L (3.5-5.1) 04/27/23 03:03
Chloride 117 mmol/L (98-107) H 04/27/23 03:03
Carbon Dioxide 21 mmol/L (22-30) L 04/27/23 03:03
BUN 16 mg/dl (9-20) 04/27/23 03:03
Creatinine 1.2 mg/dL (0.7-1.3) 04/27/23 03:03
eGFR > 60.00 04/27/23 03:03
Glucose 177 mg/dl (70-99) H 04/27/23 03:03
Calcium 7.1 mg/dl (8.4-10.2) L 04/27/23 03:03
Phosphorus 4.0 mg/dl (2.5-4.5) 04/24/23 03:49
Gyq-H-Txtfxhugknt Pept 376 pg/ml 04/21/23 10:49
Albumin 1.9 g/dl (3.5-5.0) L 04/27/23 03:03
Physical Exam
-
Vital Signs:
Vital Signs
Temp Pulse Resp BP Pulse Ox
96.9 F L 54 14 100/63 99
04/27/23 07:33 04/27/23 07:30 04/27/23 07:30 04/27/23 04:02 04/27/23 07:53
Cardiovascular:: Regular rate and rhythm (ray)
Respiratory:: Bilateral: Coarse
Lung Excursion:: Normal
Abdomen:: Nontender and Soft
Extremity Edema:: +1: Bilateral:
Mendez Catheter: Yes
Other Findings::
gen: intubated and sedated
[2023-04-27] MEDS: PROTONIX IV 40 MG IV (08:36)
[2023-04-27] MEDS: NSS (PRESERVATIVE FREE) 10 ML IV (08:36)
[2023-04-27] MEDS: LOW STRENGTH ASPIRIN 81 MG TUBE (09:48)
[2023-04-27] MEDS: ASPIR LOW (ENTERIC COATED) PO (10:03)
[2023-04-27 10:54] LABS: B.E. -5.5 mmol/L; HCO3 20.1 mmol/L (21-28); O2 Saturation % 99.6 % (94-98); PCO2 39 mmHg (35-48); PO2 412 mmHg (83-108); pH 7.32 (7.35-7.45)
[2023-04-27 11:11] LABS: B.E. -6.5 mmol/L; HCO3 21.9 mmol/L (21-28); PCO2 63 mmHg (35-48); PO2 326 mmHg (83-108)
[2023-04-27 11:13] LABS: pH 7.15 (7.35-7.45)
--- NOTE | 2023-04-27 11:20 | PTCARENOTE ---
ABG post apnea test TT'd to Dr. Lundy and Dr. Lopez also notified.
[2023-04-27 11:43] VITALS: BP 155/99
--- NOTE | 2023-04-27 12:07 | PTCARENOTE ---
Apnea testing started @ 1142 with baseline ABG, then respiratory therapist changed FiO2 to 100% x10 minutes. Pt was disconnected from ventilator and was given 6 liters oxygen via ETT for 10 minutes, ABG drawn @ 10 minute artemio. During Apnea testing
pt's left shoulder spontaneously moved, and pt remained apneic throughout the entire apnea testing protocol. He was then placed on prior ventilator settings.
--- NOTE | 2023-04-27 12:07 | W.PN.UPDATE ---
Addendum entered and electronically signed by Olivier Schmidt MD 04/27/23 16:57:
pCO2. PreApnea test was 39 mmHg. PaO2 was 412 mmHg. 04/27/2023 10:47 AM.
Addendum entered and electronically signed by Olivier Schmidt MD 04/27/23 12:58:
Apnea test consistent with brain .
Original Note:
Update Note
Progress Note Update
Apnea test performed: After 10 minutes of hyperoxygenation. Patient was stable.
Disconnected from mechanical ventilation, oxygen via nasal cannula was provided through the ET tube. Pulse ox remained over 90%. Patient remained hemodynamically stable.
Few times occasional had a left shoulder movement. No respiratory effort was noted. Suspect spinal reflexes.
ABG after 10 minutes on nasal cannula oxygen via ET tube: 7 point 15/63/326.
In my opinion, qualifies for brain .
Neurology to reevaluate patient.
--- NOTE | 2023-04-27 12:29 | W.PN.INTV ---
Today's Communication / Plan
Recommendations
Continue supportive care
Waiting for neurology evaluation
If brain confirmed, gift of life is considering transferring downtown for organ donation.
Assessment
-
Assessment:
Mr Raúl Reddy is a 68/M adm 04-21. Found coughing bloody material by at 9:30 am, called 911, found in respiratory arrest, asystole/PEA, ALCS started, orally intubated, epinephrine x1. Reportedly recent sinus infection seen at , started
atb bid (apparently clarithromycin) with improvement. ETT dislodged at ER, reintubated
Impression:
Cardiac arrest at home, unknown duration, attended by EMS upon arrival 04-21
Asystole/PEA
Intubated as scene
ETT expelled at ER, reintubated
Suspected epistaxis based on facial bones CT on adm vs hemoptysis
Hypothermia 34.1 C on adm
Recent sinus infection s/p atb
Acute on chronic leukocytosis
Hyperoxia on ABG (apparently on fiO2 1.0)
Likely acute on chronic hyponatremia
Resolved mild lactic acidosis
Mild transaminitis
Normal troponin/BNP
Abnormal UA, suspected UTI
UDS negative
COVID/flu negative
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
Ischemic CVA, R sided, L sided weakness/spasticity, on plavix/ASA
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
COVID illness Mar 2022, s/p paxlovid
LUE cast
HTN
HLD
Lung lung nodule (RLL sup segment, on CT 09-05-21)
Non-smoker
Plan:
No meaningful neurological recovery. Remains unresponsive.
Status post TTM 04/21/2023
Remains comatose-.Patient has no gag reflex, no corneals, no respiratory effort, no withdrawal to painful stimuli. Occasionally posturing.
Neurology has seen the patient in the past. Severe brain injury/ischemic.
Apnea test performed by mn 04/25/2023: After 5 minutes patient had respiratory effort. Did not qualify for brain . ABG after 5 minutes pCO2 was 48 mmHg.
Apnea test performed by mn 04/26/2023: pCO2 was borderline.
Apnea test performed 04/27/2023: pCO2 was 63. Occasional left shoulder jerking. Suspected spinal reflex
Neurology has been reconsulted to confirm possibility of brain .
Discussed with gift of life. Patient has been agreed to organ donation.
-
Head CT 04-24: suspected transtentorial herniation
Continue supportive care
Sedation has been off for days
-
Cardiac arrest-no arrhythmia has been detected so far.
Unclear etiology
Limited information at EMR, no EMS record in chart
D/w over phone 04-21: patient presented cardiac arrest while in ambulance at home driveway: she was told at ER that arrest 'was brief'
Bloody secretions in ETT but no evidence of pulm edema on CXR
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
-
Mechanical ventilation settings reviewed:
Continue with current settings
FiO2 40%
ABG with adequate oxygenation on ventilation.
Remains off sedation.
No significant secretions from ET tube.
-
Epistaxis-resolved
Suspected blood at ethmoid cells on CT
ENT evaluation 04-22: suspected L epistaxis which has ceased, rec observation
-
Shock: On low-dose Levophed/vasopressin-wean off as able.
Given hyponatremia will increase vasopressin.
Continue with support.
-
Hypernatremia: Improved after DDAVP and vasopressin.
Continue hypotonic fluid infusion.
Nephrology has evaluated the patient.
-
On Unasyn for aspiration per infectious disease.
Adm CXR was suspicious for L apical infiltrate, however, CXR post PICC did not show infiltrate (just persistence of known RLL nodule)
Sputum culture. Normal respiratory yasmin.
PICC placed at RUE 04-21
-
Grim prognosis. Comfort measures, heading towards organ donation. [facility] life communicating with family.
Will continue supportive care until family advises otherwise. [facility] of life is communicating with family.
If continues to deteriorate comfort measures.
states that she is not coming back to the hospital.
Critical care statement: A total of 36 minutes of critical care time was provided for this patient today. This includes management of unstable vital signs, evaluation of the patient at bedside, reviewing the patient's pertinent medical records
including ventilator settings, arterial blood gases, radiographs, microbiology, laboratory evaluations and discussion with primary team, critical care nursing, and respiratory therapy.

Diagnostic tests:
CXR 04-21-23: CXR post PICC did not show infiltrate (just persistence of known RLL nodule)
CXR 04-21-23 c/w 04-07-22: portable, rotated, L sided volume loss, suspected FRANCISCO infiltrate. Chronic R mid field 2.8 cm oval density (less dense than before)
Head CT 04-21-23
IMPRESSION:
There are no acute intracranial abnormalities.
4 mm lacunar infarct in the body of the caudate on the right
There is moderate diffuse cortical and cerebellar atrophy with moderate nonspecific white matter changes
Facial bones CT
IMPRESSION:
1. Post placement of nasogastric tube and endotracheal tube, expected appearance.
2. Partial opacification of ethmoid air cells and near complete opacification of the nasal cavity as above. Area of opacification with some increased attenuation suggesting possible blood products. Source of hemorrhage is indeterminate on this
examination.
3. No acute facial bone fractures.
4. 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
5. Abnormal asymmetric sphenoid bone on the left as detailed above with thinning and abnormal lucency. Differential considerations include sphenoid dysplasia and meningocele. Given sclerotic margins, metastatic disease is considered unlikely.
Could be further evaluated with follow-up MRI as warranted.
6. 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
TTE 04-07-22
CONCLUSIONS
Normal biventricular size and systolic function without regional wall motion
abnormality. Estimated LVEF 60-65%.
Mild concentric left ventricular hypertrophy.
Mild/moderate mitral regurgitation.
Mild tricuspid regurgitation. Normal PASP.
No prior study available for comparison.
Subjective Dataa
Subjective Data
Date of Service:
Date of Service: April 27, 2023
Chief Complaint: Inspector Barrel Follow Up (Respiratory failure require mechanical ventilation/status post cardiac arrest/severe anoxic brain injury)
Subjective:
Remains unresponsive
On mechanical ventilation
No respiratory effort
No gag reflex
No corneals
Review of Systems
General: Unobtainable - Pat Unresp
Objective Data
Data Reviewed
Vital Signs / I&O / Oxygen:
Vital Signs
Temp Pulse Resp BP Pulse Ox
97.3 F 70 12 100/63 100
04/27/23 11:05 04/27/23 11:00 04/27/23 10:30 04/27/23 04:02 04/27/23 11:00
Intake and Output
04/26/23 04/27/23 04/28/23
06:59 06:59 06:59
Intake Total 6708.2 / 7027.0 6690.6 / 6815.6 670 / 670
Output Total 3870 / 3880 1025 / 1057 156 / 156
Balance 2838.2 / 3147.0 5665.6 / 5758.6 514 / 514
SaO2 [A/C] 100
SaO2 100
Physical Exam
General: Respiratory Distress (n)
HEENT: Normocephalic, Moist Mucous Membranes and Other (NGT)
Cardiovascular: Regular Rhythm, Murmur and Peripheral Edema (n)
Respiratory: Clear, Non-Labored Respirations, Stridor and ET Tube
GI: Soft and Non Distended
Neurology: Other (Unresponsive, no cough effort, no respiratory effort, no gag reflex, no corneals, pupils not reactive.)
Skin: Dry
Labs/Micro/Reports
Lab Data
04/27/23 04:26
Laboratory Results
04/26/23 04/26/23 04/26/23
13:03 14:30 16:08
pH 7.39 Cancelled 7.16 L*
pCO2 30 L Cancelled 59 H
pO2 170 H Cancelled 365 H
HCO3 18.2 L Cancelled 21.0
O2 Delivery Level Cancelled
04/27/23 04/27/23
10:47 11:04
pH 7.32 L 7.15 L*
pCO2 39 63 H
pO2 412 H 326 H
HCO3 20.1 L 21.9
O2 Delivery Level
Microbiology
04/21/23 10:49 Blood/Venous Blood Culture - Final
No Growth - Final Report
04/21/23 10:52 Blood/Venous Blood Culture - Final
No Growth - Final Report
04/23/23 09:28 Tracheal Aspirate Respiratory Culture - Final
Usual Respiratory Yasmin
04/23/23 09:28 Tracheal Aspirate Gram Stain - Final
--- NOTE | 2023-04-27 12:37 | PTCARENOTE ---
Dr. Giordano notified via TT that apnea test resulted in Utility Mechanic Supervisor's note. Awaiting her neurological exam.
[2023-04-27 13:55] VITALS: BP 129/76
--- NOTE | 2023-04-27 14:14 | W.PN.NEURO.1 ---
Today's Communication / Plan
-
.
Neuro Assessment/Plan
Assessment
Continuous EEG monitoring suggests absence of electrical activity
With the above new CT of head
Impressions
1. Cardiac arrest, completed targeted temperature management and hypothermia following unresponsiveness subsequent to the arrest, profound anoxic brain injury, prognosis now definitive for no survivability
Plan
Recommendations:
May discontinue continuous EEG monitoring
Discontinued sedative agents to determine patient's brain function now that targeted temperature management has been completed
Consider apnea testing to confirm brain based on current reports
Continue aspirin given the history of previous ischemic stroke
Will follow.
Subjective/Objective
Subjective Data
Date of Service: April 27, 2023
Patient's chart has been reviewed.
Neurological examination:
General: in no acute distress, intubated
Mental status: Comatose. No eye opening to sternal rub.
Cranial Nerves: Orthophoric primary gaze. Pupils 5 mm, nonreactive to negative corneal, oculocephalic, oculovestibular, gag and cough reflexes. No nystagmus.
Motor: Flaccid quadriplegia
Reflexes: Absent DTR in bilateral upper and lower extremities
Coordination: Stimulus induced left arm rare myoclonic movements.
CT head wo contrast(04/24/2023)- diffuse encephalomalacia of the cerebrum bilaterally, least midline, with loss of the khalil/white matter differentiation. There is obliteration of the basal cisterns. There is decreased size of the lateral ventricles.
There is no hydrocephalus.
Apnea confirmed on 04/27/2023.
Evaluated the above findings, I hereby certify the of Raúl Garcia([id number]).
Time of : April,, 14:07.
Claribel Giordano M.D.
Objective Data
Vital Signs
Temp Pulse Resp BP Pulse Ox
36.0 C L 50 12 155/99 100
04/27/23 13:00 04/27/23 13:30 04/27/23 13:30 04/27/23 11:43 04/27/23 13:30
Lab Results
04/27/23 04:26
PT 14.7 Sec (11.4-14.6) H 04/24/23 03:49
INR 1.12 04/24/23 03:49
APTT 38.7 Sec (23.4-35.0) H 04/24/23 03:49
Sodium 138 mmol/L (135-145) D 04/27/23 03:03
Potassium 4.6 mmol/L (3.5-5.1) 04/27/23 03:03
BUN 16 mg/dl (9-20) 04/27/23 03:03
Glucose 177 mg/dl (70-99) H 04/27/23 03:03
Calcium 7.1 mg/dl (8.4-10.2) L 04/27/23 03:03
Phosphorus 4.0 mg/dl (2.5-4.5) 04/24/23 03:49
Cso-J-Rkgtnltfwic Pept 376 pg/ml 04/21/23 10:49
Ur Buprenorphine Negative (Negative) 04/21/23 10:52
Patient Allergies
No Known Allergies Allergy (Verified 04/21/23 10:41)
Modified Ally Score (MRS)
-
MRS Score:
Medications
-
Medications:
Generic Name Dose Route Start Last Admin
Trade Name Freq PRN Reason Stop Dose Admin
Aspirin 81 mg 04/27/23 09:00 04/27/23 09:48
Aspirin 81 Mg Chewable Tablet TUBE 05/25/23 08:59 81 mg
DAILY ROSLYN Administration
Ampicillin Sodium/Sulbactam 120 mls @ 240 mls/hr 04/23/23 12:00 04/27/23 11:33
Sodium 3 gm/ Sodium Chloride IV 120 mls
Q6H ROSLYN Administration
Dextrose 1,000 mls @ 125 mls/hr 04/26/23 11:00 04/27/23 08:31
D5w IV 1,000 mls
.Q8H ROSLYN Administration
Norepinephrine Bitartrate 4 mg in 250 mls @ 0 mls/hr 04/27/23 11:00
Levophed IV
PER PROTOCOL ROSLYN
Protocol
Per Protocol
Pantoprazole Sodium 40 mg 04/21/23 18:00 04/27/23 08:36
Pantoprazole Sodium 40 Mg/10 Ml Vial IV 05/19/23 17:59 40 mg
DAILY ROSLYN Administration
Sodium Chloride 10 ml 04/21/23 18:00 04/27/23 08:36
Sodium Chloride 0.9% (Preservative Free) 10 Ml Vial IV 05/19/23 17:59 10 ml
DAILY ROSLYN Administration
Sodium Chloride 0 flush 04/21/23 18:00
Sodium Chloride 0.9% (Flush) Syringe IV 05/19/23 17:59
PER PROTOCOL ROSLYN
Trimethobenzamide HCl 200 mg 04/23/23 22:10 04/23/23 22:17
Trimethobenzamide 200 Mg/2 Ml Vial IM 05/21/23 22:09 200 mg
Q6HPRN PRN Administration
nausea
--- NOTE | 2023-04-27 14:40 | PTCARENOTE ---
@ 6127 Dr. Giordano completed neurological exam. According to Dr. Giordano he is clinically .
--- NOTE | 2023-04-27 15:18 | W.PN.DEATH ---
Pronouncement of
-
Called to see patient to pronounce.
Patient not responsive to verbal stimuli.
Patient is pronounced by brain criteria. See neurologist's note from today.
Time of : 14:07
Date of : 04/27/23
Cause of : Cardiac Arrest with Resultant Anoxic Brain Injury
Family Notified: Yes
--- NOTE | 2023-04-27 15:43 | W.PN.HOSP.TC ---
Today's Communication/Plan
-
Patient declared brain today after apnea testing, and as documented per neurology.
Plan is fo transfer to [facility] for organ donation
Assessment / Plan
Assessment / Plan
Physical Exam
General: No Apparent Distress
HEENT: Other (Dried blood at the nares; no active bleeding)
Respiratory: Clear to Auscultation (Anteriorly). Intubated and on mechanical ventilation.
Cardiac: Regular Rhythm, S1/S2
GI: Soft
Neuro: Comatose
Assessment/Plan
Bloody oral secretion causing gagging until respiratory arrest requiring [id number]-[id number] if blood has ENT source,hemoptysis or hematemesis.�
Yes, bloody oral secretions are related to/associated with/exacerbated by Plavix use.
Concern for Acute Blood Loss Anemia
-No obvious external GI blood loss
-CT face with contrast showed large amount of blood in the nasal cavities and maxillary sinus was clear. Ethmoid sinus partially obstructed. Sphenoid sinus abnormality noted. Unclear of the nasal bleeding he is in town from [employer]. There
is tongue laceration noted. Patient has been troubled with sinusitis for couple of weeks. ENT opinion noted. Observe for now
-H&H dropped noted - and H&H was followed
Sepsis with shock suspected septic shock-elevated white count and hypothermia noted.� Echo showed normal EF. Unclear if it related to oropharyngeal infection or a UTI.� He has a cloudy urine.� She also has abnormal right upper lobe chest x-ray. Is
known to have recurrent UTIs.� Continue with Unasyn (to cover for aspiration) per ID -currently off of vasopressors.
Out of hospital PEA/Cardiac Arrest - Patient apparently was in respiratory arrest and transient PEA code needing 1 cycle of epinephrine.�
Profound Anoxic brain injury with transtentorial brain herniation - patient presented asymmetric pupil-right larger than left. Left iris seemed to be abnormal. With sluggish pupils and unknown details of respiratory arrest/PEA cardiac arrest,
neurology consulted and continuous EEG ordered. CT of the head showed concerning for transfer tentorial herniation with diffuse bilateral cerebellar encephalomalacia. He also seemed to have Piort reflex now with the elevated blood pressure and
bradycardia. All concerning for anoxic brain injury. His continuous EEG leads are off-will consider checking with neurology regarding further need of EEG or MRI of the brain.
Patient declared brain today after apnea testing, and as documented per neurology.
Acute respiratory failure/Ventilator Dependent Respiratory Failure secondary to oral secretion issues-currently intubated for airway protection and secretion management.� Continue with vent support per pulmonary.
Hyponatremia-nephrology following. RESOLVED.
Hypernatremia-D5W at 250cc/hr. Got DDAVP - RESOLVED
History of CVA with residual left-sided weakness-patient on dual antiplatelet agents.� Hold Plavix.�Continue Aspirin.
Hypertension with recent hypotension-hold home medication and follow blood pressure which has been on the lower side.
RLL lung nodule
Elevated LFTs
Einus infection/UTI
Epistaxis
Full code
Dr. Rodriguez discussed with Katiana recently and updated the critical nature of his illness.
Dr. Lundy notified patient's Katiana over the phone that patient has been declared brain today.
Anticipated Discharge: 24 - 48 hours
Subjective/Interval History
-
Date of Service: April 27, 2023
Patient was seen and examined. He remained intubated on the ventilator.
Objective Data
-
Labs:
Laboratory Results
04/27/23 04/27/23 04/27/23
03:03 04:26 10:47
WBC 18.6 H
Hgb 6.5 L* 6.3 L*
Hct 19.5 L* 18.7 L*
Plt Count 89 L D
HCO3 20.1 L
Sodium 138 D
Potassium 4.6
Chloride 117 H
Carbon Dioxide 21 L
BUN 16
Creatinine 1.2
Glucose 177 H
Calcium 7.1 L
Total Bilirubin 0.9
AST 64 H
ALT 36
Alkaline Phosphatase 205 H
04/27/23 04/27/23
11:04 15:00
WBC
Hgb
Hct
Plt Count
HCO3 21.9
Sodium Pending
Potassium Pending
Chloride Pending
Carbon Dioxide Pending
BUN
Creatinine
Glucose
Calcium
Total Bilirubin
AST
ALT
Alkaline Phosphatase
Vital Signs:
Vital Signs
Temp Pulse Resp BP Pulse Ox
96.7 F L 51 12 129/76 100
04/27/23 15:00 04/27/23 14:30 04/27/23 14:30 04/27/23 13:55 04/27/23 15:03
I&O
04/26/23 04/27/23 04/28/23
06:59 06:59 06:59
Intake Total 6708.2 / 7027.0 6690.6 / 6815.6 1180.0 / 1180.0
Output Total 3870 / 3880 1025 / 1057 246 / 246
Balance 2838.2 / 3147.0 5665.6 / 5758.6 934.0 / 934.0
--- NOTE | 2023-04-27 16:08 | PTCARENOTE ---
Repositioned. No changes.
--- NOTE | 2023-04-27 17:04 | PTCARENOTE ---
Report called to Romel GENAO at the Organ donor center [phone].
--- NOTE | 2023-04-27 17:59 | PTCARENOTE ---
Pt transported via [facility] to [facility] with 2nd unit PRBC's infusing via right PICC.
--- NOTE | 2023-04-29 08:57 | W.DCSUMMARY ---
Discharge Summary
Discharge Data
Date of Admission: 04/21/23
Date of Discharge: 04/27/23
Total time spent discharging patient (in min): 45
-
Pending Results: No
Hospital Course
68 y/o male with a past medical history of stroke, COVID, hypertension, hyperlipidemia, and lung nodule went to urgent care center on April 12, 2023 and had COVID testing which was negative and also a chest x-ray which did not show pneumonia,
diagnosed with sinus infection, he was prescribed antibiotics and also had some confusion which was clearing up. On the morning of presentation to the ER, at 9:30 AM when the patient's went to check on him he was found to be coughing bloody
material, 911 was called, patient was found to be in respiratory arrest, asystole/pulseless electrical activity, advanced cardiac life support was started, patient was orally intubated, and given epinephrine x1 round. Patient got intubated although
it was difficult intubation due to gagging - his endotracheal tube got dislodged in the emergency room and he had to be reintubated.
Echocardiogram was performed and per Dr. Botello's (ferry boat captain's) report, it showed
'CONCLUSIONS
Technically limited study.
Normal biventricular systolic function. Estimated LVEF 60-65%.
Wall motion analysis is limited by the image quality.
No significant valve disease.
Compared to 04/07/22: MR looks trace on current limited study, compared to
mild/moderate on prior full study.'
Nephrology was consulted, and patient was given intravenous fluids and bicarbonate. Cardiology was also consulted. Patient was treated with pressors. Patient was found to have sinus bradycardia which was thought to be precipitated by cooling, and
recommended continuing Dopamine and limit cooling if possible and appropriate. Gastroenterology was consulted for oral trauma/bloody oral secretions and recommended monitoring hemoglobin and consulting disability insurance hearing officer if needed.
Empiric broad spectrum antibiotics were also given; there was also a concern for possible aspiration pneumonia. Infectious Disease was consulted. Neurology was consulted given patient's cardiac arrest, and their recommendations were noted; they
performed a continuous EEG. There was concern for anoxic brain injury. operations systems specialist was also consulted and recommended that at the time, avoid nasal packing because bleeding had resolved at the time, and nasal packing would require
removal of nasogastric tube, and if there was renewed significant bleeding then nasogastric tube might need to be removed and nasal packing may need to be put in place.
On April 24, 2023, patient was noted have acute neurologic change, pupils fixed with no reflex/response to light, patient was not reflexive to noxious stimuli; his blood pressure was noted to be acutely hypertensive, vasopressors had been off,
systolic blood pressures in the 180 mmHg to 200 mmHg area. There was a concern for worsening anoxic injury/brain herniation. Patient was noted to have very dilute urine, consistent with central diabetes insipidus in setting of acute brain injury and
intravenous fluids were escalated. Patient was being prepared for organ donation, on April 27, 2023 patient's apnea test was consistent with brain , shortly after neurology saw the patient and confirmed brain . Patient was transported to
[place] for organ donation.
Discharge Plan
-
Patient Disposition:
Date/Time
Date/Time: 04/27/23 14:07
Discharge Date and Time
Discharge Date/Time: 04/27/23 14:07
== END 2023-04-27 14:07 | disposition expired | DRG 870 ==
LOC: ICU 13:22
PROVIDERS: Internal Medicine Critical Care Medicine; Nurse Practitioner Family; Student in an Organized Health Care Education/Training Program; ADMITTING PHYSICIAN Internal Medicine; ATTENDING PHYSICIAN Hospitalist; CONSULT PHYSICIAN Internal Medicine; CONSULT PHYSICIAN Internal Medicine Cardiovascular Disease; CONSULT PHYSICIAN Internal Medicine Infectious Disease; CONSULT PHYSICIAN Internal Medicine Pulmonary Disease; CONSULT PHYSICIAN Specialist; CONSULT PHYSICIAN Student in an Organized Health Care Education/Training Program; EMERGENCY PHYSICIAN Emergency Medicine; OTHER PHYSICIAN Otolaryngology
PROC: 02HV33Z Insertion of Infusion Device into Superior Vena Cava, Percutaneous Approach (ICD-10-PCS; 2023-04-21)
PROC: 5A1955Z Respiratory Ventilation, Greater than 96 Consecutive Hours (ICD-10-PCS; 2023-04-21)
PROC: 30233N1 Transfusion of Nonautologous Red Blood Cells into Peripheral Vein, Percutaneous Approach (ICD-10-PCS; 2023-04-27)
DX: A41.9 Sepsis, unspecified organism (principal); I63.81 Other cerebral infarction due to occlusion or stenosis of small artery; J96.00 Acute respiratory failure, unspecified whether with hypoxia or hypercapnia; R65.21 Severe sepsis with septic shock; R40.20 Unspecified coma; G93.1 Anoxic brain damage, not elsewhere classified; N39.0 Urinary tract infection, site not specified; I69.354 Hemiplegia and hemiparesis following cerebral infarction affecting left non-dominant side; K92.0 Hematemesis; Z99.11 Dependence on respirator [ventilator] status; E23.2 Diabetes insipidus; D62 Acute posthemorrhagic anemia; D68.32 Hemorrhagic disorder due to extrinsic circulating anticoagulants; I46.9 Cardiac arrest, cause unspecified; Z11.52 Encounter for screening for COVID-19; I10 Essential (primary) hypertension; I95.9 Hypotension, unspecified; Z79.82 Long term (current) use of aspirin; R04.0 Epistaxis
CPT/HCPCS: 31500; 51702; 70450; 70487; 71045; 80048; 80053; 80202; 80306; 81003; 81015; 82550; 82553; 82570; 82805; 83605; 83735; 83880; 83935; 84100; 84134; 84300; 84478; 84484; 85014; 85018; 85025; 85027; 85610; 85730; 86850; 86900; 86901; 86920; 87040; 87070; 87086; 87205; 87502; 87641; 87811; 93005; 93306; 94002; 94003; 95714; 96361; 96374; 96375; 96376; 99291; J2597; J7030; P9016; Q9967